=== PATIENT | female | born 1980 | race Caucasian/White ===

== ENCOUNTER 2018-05-10 10:36 | Emergency (ER) | payer OTHER ==
[2018-05-10 10:45] VITALS: RESP 18
--- NOTE | 2018-05-10 11:10 | ED ---
General Adult HPI - General Chief complaint: Extremity Injury, Upper Stated complaint: slip & fall/wrist pain Time Seen by Provider: 05/10/18 10:47 Source: patient, RN notes reviewed Mode of arrival: ambulatory Limitations: no limitations - History of Present Illness Initial comments: Patient's a 38-year-old female presented to the emergency room today with a chief complaint of a slip and fall that occurred just prior to arrival. She states she was walking to her car when she slipped on the ice falling down onto the left arm. Admits to worst pain is the left wrist and elbow area. She also admits to hitting the left knee which she states feels fine but she didn't twist the right knee and also her right ankle. Patient denies any head injury or loss consciousness. She denies any other complaints or symptoms. - Related Data Previous Rx's Medication Instructions Recorded Ibuprofen [Motrin] 600 mg PO Q6HR PRN #40 day 05/10/18 Allergies Allergy/AdvReac Type Severity Reaction Status Date / Time bee venom protein (honey bee) Allergy Anaphylaxis Verified 05/10/18 10:55 latex Allergy Rash/Hives Verified 05/10/18 10:55 Review of Systems ROS Statement: Those systems with pertinent positive or pertinent negative responses have been documented in the HPI. ROS Other: All systems not noted in ROS Statement are negative. Past Medical History Past Medical History: No Reported History History of Any Multi-Drug Resistant Organisms: None Reported Past Surgical History: Orthopedic Surgery Past Psychological History: PTSD Smoking Status: Never smoker Past Alcohol Use History: None Reported Past Drug Use History: None Reported General Exam - General Exam Comments Initial Comments: General: The patient is awake and alert, in no distress, and does not appear acutely ill. Neck: The neck is supple, there is no tenderness or JVD. Musculoskeletal: Patient has normal appearance of all extremities with no obvious deformity. She does have pain to the distal radius with mild pain in the distal ulna. There is minimal pain midshaft with pain to the posterior aspect of the left elbow. No tenderness to the left shoulder. No tenderness to cervical, thoracic or lumbar spine. Patient has normal appearance of the lower extremities. There is mild tenderness medially to the right knee. She shows full range of motion of this area along with right ankle and foot. She does have some mild tenderness over the lateral malleolus and over the proximal fourth and fifth metatarsals. Sensations are intact. Pedal and radial pulses are equal 2+. Neurological: A&O x 3. CN II-XII intact, There are no obvious motor or sensory deficits. Coordination appears grossly intact. Speech is normal. Skin: Skin is warm and dry and no rashes or lesions are noted. Psychiatric: Normal mood and affect. Limitations: no limitations Course Vital Signs 05/10/18 10:43 Temperature 98.4 F Pulse Rate 98 Respiratory 18 Rate Blood Pressure 129/84 O2 Sat by Pulse 98 Oximetry Medical Decision Making - Medical Decision Making Patient's x-rays reviewed and are negative for any acute fracture dislocation. Results were discussed with the patient. She be given Conrad wrap for her left wrist. She is advised follow-up with orthopedics in 7-10 days for repeat x- rays if symptoms persist. Patient advised return for any other concerns Disposition Clinical Impression: Right ankle sprain, Left wrist sprain, Fall Disposition: HOME SELF-CARE Condition: Good Instructions: Wrist Sprain (ED) Additional Instructions: Please follow-up in 7-10 days for repeat x-rays if symptoms persist. Please continue to ice elevate the affected area at least 4 times daily for 20 minutes at a time. Please return to emergency room for any other concerns. Prescriptions: Ibuprofen [Motrin] 600 mg PO Q6HR PRN #40 day PRN Reason: Pain Is patient prescribed a controlled substance at d/c from ED?: No Referrals: [facility],Clinic [Primary Care Provider] - 1-2 days Artemio Ly MD [STAFF PHYSICIAN] - 1-2 days Time of Disposition: 13:12
[2018-05-10] MEDS ORDERED: IBUPROFEN 600 MG TAB PO STA (12:45)
--- NOTE | 2018-05-10 13:00 | XR ---
EXAMINATION TYPE: XR ankle complete RT, XR foot complete RT DATE OF EXAM: 05/10/2018 CLINICAL HISTORY: Fall injury today with pain. TECHNIQUE: Frontal, lateral and oblique images of the right ankle and foot are obtained. COMPARISON: None. FINDINGS: There is no acute fracture/dislocation evident in the right ankle. The ankle mortise appe ars within normal limits. Small superior calcaneal spur and moderate size inferior calcaneal spur are present . Mild to moderate diffuse subcutaneous edema is seen. There is no acute fracture or dislocation evident in the right foot. The joint spaces in the right f oot are preserved. Overlying soft tissue is unremarkable. IMPRESSION: There is no acute fracture or dislocation in the right ankle or foot.
--- NOTE | 2018-05-10 13:02 | XR ---
EXAMINATION TYPE: XR knee complete RT DATE OF EXAM: 05/10/2018 CLINICAL HISTORY: Right knee pain after fall injury today. TECHNIQUE: Three views of the right knee are obtained. COMPARISON: None. FINDINGS: There is no acute fracture/dislocation evident in right knee. The tri-compartment joint s paces appear within normal limits. The overlying soft tissue appears unremarkable. IMPRESSION: There is no acute fracture or dislocation in the right knee.
--- NOTE | 2018-05-10 13:02 | XR ---
EXAMINATION TYPE: XR elbow complete LT, XR wrist complete LT, XR forearm LT DATE OF EXAM: 05/10/2018 CLINICAL HISTORY: Fall injury with pain. TECHNIQUE: Frontal, lateral and oblique images of the left elbow are obtained. 4 views left wrist ar e acquired. 2 views left forearm are acquired. COMPARISON: None FINDINGS: There is no acute fracture/dislocation evident in the left elbow. No abnormal fat pad sig ns are seen. The overlying soft tissue appears unremarkable. Images of left forearm show no acute fracture or dislocation. Overlying soft tissue is unremarkable. Images of left wrist show no acute fracture or dislocation. The carpal joint spaces are preserved. Ov erlying soft tissue is unremarkable. IMPRESSION: There is no acute fracture or dislocation in the left wrist, forearm, or elbow.
[2018-05-10 13:21] VITALS: BP 128/88; PULSE 68; TEMP 98.3
== END 2018-05-10 13:20 | disposition home or self-care (01) ==
LOC: EC 10:36
DX: S63.502A Unspecified sprain of left wrist, initial encounter (principal); S93.401A Sprain of unspecified ligament of right ankle, initial encounter; Z91.018 Allergy to other foods; Z91.040 Latex allergy status; W00.0XXA Fall on same level due to ice and snow, initial encounter; Y93.01 Activity, walking, marching and hiking; Y92.219 Unspecified school as the place of occurrence of the external cause
CPT/HCPCS: 99283

== ENCOUNTER → 2020-01-10 | Outpatient (CLI) | payer OTHER ==
--- NOTE | 2020-01-10 14:58 | US ---
EXAMINATION TYPE: US axilla LT DATE OF EXAM: 01/10/2020 COMPARISON: NONE CLINICAL HISTORY: R22.9 swelling/mass lump. Left axilla palpable lump x 3 months Left axilla: no abnormality seen at patient's area of concern IMPRESSION: No distinct abnormality appreciated at this time.
== END | disposition home or self-care (01) ==
LOC: RADUSWWP 13:23
DX: R22.9 Localized swelling, mass and lump, unspecified (principal)

== ENCOUNTER 2020-11-28 19:45 | Observation (INO) | payer OTHER ==
[2020-11-28] MEDS ORDERED: ONDANSETRON 4 MG/2 ML VIAL IVP STA (20:10)
[2020-11-28 20:13] LABS: Basophils # (A) 0.1 k/uL (0-0.2); Basophils % (A) 1 %; Eosinophils # (A) 0.2 k/uL (0-0.7); Eosinophils % (A) 2 %; HCT 41.6 % (34.0-46.0); HGB 13.9 gm/dL (11.4-16.0); Lymphocytes # (A) 3.4 k/uL (1.0-4.8); Lymphocytes % (A) 34 %; MCH 29.9 pg (25.0-35.0); MCHC 33.5 g/dL (31.0-37.0); MCV 89.3 fL (80.0-100.0); Mean Platelet Volume 7.8; Monocytes # (A) 0.5 k/uL (0-1.0); Monocytes % (A) 5 %; Neutrophils # (A) 5.6 k/uL (1.3-7.7); Neutrophils % (A) 56 %; Platelet Count 368 k/uL (150-450); RBC 4.66 m/uL (3.80-5.40); RDW 12.4 % (11.5-15.5)
--- NOTE | 2020-11-28 20:14 | ED ---
General Adult HPI - General Chief complaint: Arrhythmia/Palpitations Stated complaint: Dizziness Time Seen by Provider: 11/28/20 19:56 Source: patient, RN notes reviewed, old records reviewed Mode of arrival: wheelchair - History of Present Illness Initial comments: Patient is a 40-year-old female with past medical history remarkable for PTSD, anxiety, as well as recurrent episodes of lightheadedness and syncope over the last few months presents emergency Department after being instructed by the sleep lab for evaluation. She was receiving sleep study for obstructive sleep apnea 2 days ago, and she received a phone call today stating that she should come to the emergency department for evaluation due to recurrent runs of ventricular tachycardia seen during the sleep study. She states she has been dealing with for the last 2 months episodes of lightheadedness episodes. She denies any abdominal pain during these episodes. She does state she is slightly nauseous at this time. She denies any emesis. She denies any weakness or numbness. She denies hitting her head earlier today during the syncopal episode, and is uncertain if she for loss consciousness but states she did fall to the ground. Denies any injuries afterwards. She states this possible syncopal episode is the first time this has happened. She states she has felt lightheaded before but has never collapsed. She is able to remember prior to the collapse as well as immediately after her collapse. She denies any nausea or vomiting. Denies any headache. She has no other acute complaints at this time. She denies any hemoptysis but does endorse a family history of blood clots. Denies any leg swelling or dyspnea. - Related Data Home Medications Medication Instructions Recorded Confirmed Escitalopram [Lexapro] 10 mg PO DAILY 11/28/20 11/28/20 Levothyroxine Sodium [Synthroid] 50 mcg PO DAILY 11/28/20 11/28/20 Multivitamins, Thera [Multivitamin 1 tab PO DAILY 11/28/20 11/28/20 (formulary)] buPROPion SR [Wellbutrin SR] 150 mg PO BID 11/28/20 11/28/20 Allergies Allergy/AdvReac Type Severity Reaction Status Date / Time bee venom protein (honey bee) Allergy Anaphylaxis Verified 11/28/20 20:41 latex Allergy Rash/Hives Verified 11/28/20 20:41 Review of Systems ROS Statement: Those systems with pertinent positive or pertinent negative responses have been documented in the HPI. Review of Systems: CONST: Denies fever EYES: Denies blurry vision ENT: Denies nasal congestion C/V: Denies Chest pain RESP: Denies shortness of breath GI: Denies abdominal pain : Denies dysuria SKIN: Denies rash. MSK: Denies joint pain. NEURO: Denies headache ROS Other: All systems not noted in ROS Statement are negative. Past Medical History Past Medical History: No Reported History History of Any Multi-Drug Resistant Organisms: None Reported Past Surgical History: Orthopedic Surgery Past Psychological History: PTSD Smoking Status: Never smoker Past Alcohol Use History: None Reported Past Drug Use History: None Reported General Exam - General Exam Comments Initial Comments: General: Appears in no acute distress. HEAD: Normal with no signs of head trauma. No step-offs or deformities of the skull. EYES: PERRLA, EOMI, conjunctiva normal, no discharge. Pupils are 3 mm and equal bilaterally. ENT: Hearing grossly intact, normal oropharynx. RESPIRATORY: Clear breath sounds bilaterally. No wheezes, rales, or rhonchi. C/V: Regular rate and rhythm. S1 and S2 auscultated, no edema, peripheral pulses 2+ and intact throughout ABD: Abd is soft, nontender, nondistended EXT: Normal range of motion, no obvious deformity. Pelvis is stable. Patient has no midline cervical, thoracic, lumbar spine tenderness to palpation. SKIN: No rashes or lesions observed on exposed skin. NEURO: Alert and oriented 4. Cranial nerves II-12 are intact. No focal sensory strength deficits. Cerebellar function is intact as evident by normal finger nose testing. NIH stroke scale is 0. Patient is able to ambulate without difficulty. GCS is 15. Course Vital Signs 11/28/20 11/28/20 19:46 21:37 Temperature 98.2 F Pulse Rate 77 81 Respiratory 19 18 Rate Blood Pressure 134/87 122/65 O2 Sat by Pulse 98 100 Oximetry Medical Decision Making - Medical Decision Making Based on the patient's presentation and physical exam, does appear that she had a near-syncopal versus syncopal episode at home as well as a confirmed run of V. tach at her sleep study performed earlier this week. She currently is asymptomatic at this time. Due to these findings, we will obtain a cardiac workup including troponin, EKG, chest x-ray. Due to the sudden possible syncopal episode which had not previously occurred, I cannot rule out the poss ibility of pulmonary embolism, especially with a family medical history of blood clots. Patient's will score is low and therefore we will obtain a screening test with a d-dimer. She'll be connected to continuous cardiac monitoring here in the department. Patient was in agreement the plan. Patient's EKG showed no signs of acute ischemia. It was normal sinus rhythm. Laboratory studies were remarkable for a negative troponin. D-dimer is also within normal limits. She is not . Remainder of the labs are unremarkable. Patient's chest x-ray reveals no acute cardiopulmonary process. On reevaluation, patient remains asymptomatic at this time. I did explain to her that despite her negative workup, but the confirmed runs of ventricular tachycardia at the sleep study it would be may to admit her to the hospital for telemetry monitoring. She was in agreement this plan. I spoke with the patient's admitting physician, Dr. Mata, who is in agreement the plan. Cardiology was consult for evaluation of the patient tomorrow. Patient was therefore admitted in stable condition to observation telemetry. - Lab Data Result diagrams: 11/28/20 20:01 11/28/20 20:00 Lab Results 11/28/20 11/28/20 11/28/20 Range/Units 20:00 20:00 20:01 WBC 10.0 (3.8-10.6) k/uL RBC 4.66 (3.80-5.40) m/uL Hgb 13.9 (11.4-16.0) gm/dL Hct 41.6 (34.0-46.0) % MCV 89.3 (80.0-100.0) fL MCH 29.9 (25.0-35.0) pg MCHC 33.5 (31.0-37.0) g/dL RDW 12.4 (11.5-15.5) % Plt Count 368 (150-450) k/uL MPV 7.8 Neutrophils % 56 % Lymphocytes % 34 % Monocytes % 5 % Eosinophils % 2 % Basophils % 1 % Neutrophils # 5.6 (1.3-7.7) k/uL Lymphocytes # 3.4 (1.0-4.8) k/uL Monocytes # 0.5 (0-1.0) k/uL Eosinophils # 0.2 (0-0.7) k/uL Basophils # 0.1 (0-0.2) k/uL PT (9.0-12.0) sec INR (<1.2) APTT (22.0-30.0) sec D-Dimer (<0.60) mg/L FEU Sodium 137 (137-145) mmol/L Potassium 3.7 (3.5-5.1) mmol/L Chloride 103 (98-107) mmol/L Carbon Dioxide 25 (22-30) mmol/L Anion Gap 9 mmol/L BUN 12 (7-17) mg/dL Creatinine 0.66 (0.52-1.04) mg/dL Est GFR (CKD-EPI)AfAm >90 (>60 ml/min/1.73 sqM) Est GFR (CKD-EPI)NonAf >90 (>60 ml/min/1.73 sqM) Glucose 97 (74-99) mg/dL Calcium 9.6 (8.4-10.2) mg/dL Magnesium 2.0 (1.6-2.3) mg/dL Total Bilirubin 0.3 (0.2-1.3) mg/dL AST 24 (14-36) U/L ALT 15 (4-34) U/L Alkaline Phosphatase 92 (38-126) U/L Troponin I <0.012 (0.000-0.034) ng/mL Total Protein 7.2 (6.3-8.2) g/dL Albumin 4.3 (3.5-5.0) g/dL Urine HCG, Qual (Not Detectd) 11/28/20 11/28/20 Range/Units 20:01 20:30 WBC (3.8-10.6) k/uL RBC (3.80-5.40) m/uL Hgb (11.4-16.0) gm/dL Hct (34.0-46.0) % MCV (80.0-100.0) fL MCH (25.0-35.0) pg MCHC (31.0-37.0) g/dL RDW (11.5-15.5) % Plt Count (150-450) k/uL MPV Neutrophils % % Lymphocytes % % Monocytes % % Eosinophils % % Basophils % % Neutrophils # (1.3-7.7) k/uL Lymphocytes # (1.0-4.8) k/uL Monocytes # (0-1.0) k/uL Eosinophils # (0-0.7) k/uL Basophils # (0-0.2) k/uL PT 10.1 (9.0-12.0) sec INR 0.9 (<1.2) APTT 22.8 (22.0-30.0) sec D-Dimer 0.29 (<0.60) mg/L FEU Sodium (137-145) mmol/L Potassium (3.5-5.1) mmol/L Chloride (98-107) mmol/L Carbon Dioxide (22-30) mmol/L Anion Gap mmol/L BUN (7-17) mg/dL Creatinine (0.52-1.04) mg/dL Est GFR (CKD-EPI)AfAm (>60 ml/min/1.73 sqM) Est GFR (CKD-EPI)NonAf (>60 ml/min/1.73 sqM) Glucose (74-99) mg/dL Calcium (8.4-10.2) mg/dL Magnesium (1.6-2.3) mg/dL Total Bilirubin (0.2-1.3) mg/dL AST (14-36) U/L ALT (4-34) U/L Alkaline Phosphatase (38-126) U/L Troponin I (0.000-0.034) ng/mL Total Protein (6.3-8.2) g/dL Albumin (3.5-5.0) g/dL Urine HCG, Qual Not Detected (Not Detectd) - EKG Data -: EKG Interpreted by Me EKG Comments: 12-lead Electrocardiogram Interpretation Note EKG was reviewed and interpreted by myself. 12-lead ECG performed at 2000 is interpreted by me as revealing normal sinus rhythm at a rate of 71 beats per minute. [place] is normal. SC interval is 154 ms, QRS duration is 82 ms, QTc is 415 ms.. There were no ST or T wave abnormalities to suggest myocardial ischemia or injury. R wave progression across the precordium was satisfactory. By my interpretation this EKG is non-diagnostic for acute ischemia. Disposition Clinical Impression: Near syncope, Syncope, Arrhythmia Disposition: ADMITTED IP TO THIS HOSP Condition: Stable
[2020-11-28 20:21] LABS: ALT 15 U/L (4-34); AST 24 U/L (14-36); African American GFR (CKD) >90 (>60 ml/min/1.73 sqM); Albumin 4.3 g/dL (3.5-5.0); Alkaline Phosphatase 92 U/L (38-126); Anion Gap 9 mmol/L; Blood Urea Nitrogen 12 mg/dL (7-17); Calcium 9.6 mg/dL (8.4-10.2); Carbon Dioxide 25 mmol/L (22-30); Chloride 103 mmol/L (98-107); Glucose 97 mg/dL (74-99); Non-African American GFR(CKD) >90 (>60 ml/min/1.73 sqM); Potassium 3.7 mmol/L (3.5-5.1); Sodium 137 mmol/L (137-145); Total Bilirubin 0.3 mg/dL (0.2-1.3); Total Protein 7.2 g/dL (6.3-8.2)
[2020-11-28 20:27] LABS: INR 0.9 (<1.2); Partial Thromboplastin Time 22.8 sec (22.0-30.0); Prothrombin Time 10.1 sec (9.0-12.0)
--- NOTE | 2020-11-28 21:24 | XR ---
EXAMINATION TYPE: XR chest 2V DATE OF EXAM: 11/28/2020 COMPARISON: NONE HISTORY: Chest pain TECHNIQUE: 2 views FINDINGS: Heart and mediastinum are normal. Lungs are clear. Diaphragm is normal. Bony thorax is inta ct. IMPRESSION: Normal chest.
[2020-11-29] MEDS: LEVOTHYROXINE 50 MCG TAB PO SCH (05:50)
[2020-11-29] MEDS: buPROPion SR 150 MG TABLET.ER PO SCH ×2 (08:09→20:04)
--- NOTE | 2020-11-29 12:53 | P.DS ---
Providers Date of admission: 11/28/20 21:18 Attending physician: Azeem Mata MD Consults: 11/28/20 21:16 Consult Physician Routine Consulting Provider: [facility] Consult Reason/Comments: possible arrhythmia/vtach seen at outpatient sleep study, near syncope Do you want consulting provider notified?: Yes Primary care physician: [facility] Hospital Course: If cleared by cardiology patient will be discharged today and please refer to my HPI for further details Patient Condition at Discharge: Stable Plan - Discharge Summary Discharge Rx Participant: No New Discharge Prescriptions: Continue Levothyroxine Sodium [Synthroid] 50 mcg PO DAILY buPROPion SR [Wellbutrin SR] 150 mg PO BID Multivitamins, Thera [Multivitamin (formulary)] 1 tab PO DAILY Escitalopram [Lexapro] 10 mg PO DAILY Discharge Medication List Escitalopram [Lexapro] 10 mg PO DAILY 11/28/20 [History] Levothyroxine Sodium [Synthroid] 50 mcg PO DAILY 11/28/20 [History] Multivitamins, Thera [Multivitamin (formulary)] 1 tab PO DAILY 11/28/20 [History] buPROPion SR [Wellbutrin SR] 150 mg PO BID 11/28/20 [History] Follow up Appointment(s)/Referral(s): Janiya Woods MD [STAFF PHYSICIAN] - 1 Week [facility],Clinic [Primary Care Provider] - 3 Days Discharge Disposition: HOME SELF-CARE
--- NOTE | 2020-11-29 12:53 | P.HPIM ---
History of Present Illness Patient was and that 40-year-old the female came in with the near syncopal episode patient had a sleep study and the physician who did review her sleep study told her to go to the hospital because of nonsustained VT. Patient EKG here is sensitive no significant abnormality on the telemetry. Patient alert right-sided within normal limits patient denied any chest pain at this time echocardiac and is being obtained, if that's normal patient will be discharged today and will probably will need a Holter monitor. REVIEW OF SYSTEMS: CONSTITUTIONAL: No fever, no malaise, no fatigue. HEENT: No recent visual problems or hearing problems. Denied any sore throat. CARDIOVASCULAR: No chest pain, orthopnea, PND, no palpitations, no syncope. PULMONARY: No shortness of breath, no cough, no hemoptysis. GASTROINTESTINAL: No diarrhea, no nausea, no vomiting, no abdominal pain. NEUROLOGICAL: No headaches, no weakness, no numbness. HEMATOLOGICAL: Denies any bleeding or petechiae. GENITOURINARY: Denies any burning micturition, frequency, or urgency. MUSCULOSKELETAL/RHEUMATOLOGICAL: Denies any joint pain, swelling, or any muscle pain. ENDOCRINE: Denies any polyuria or polydipsia. The rest of the 14-point review of systems is negative. PHYSICAL EXAMINATION: GENERAL: The patient is alert and oriented x3, not in any acute distress. Well developed, well nourished. HEENT: Pupils are round and equally reacting to light. EOMI. No scleral icterus. No conjunctival pallor. Normocephalic, atraumatic. No pharyngeal erythema. No thyromegaly. CARDIOVASCULAR: S1 and S2 present. No murmurs, rubs, or gallops. PULMONARY: Chest is clear to auscultation, no wheezing or crackles. ABDOMEN: Soft, nontender, nondistended, normoactive bowel sounds. No palpable organomegaly. MUSCULOSKELETAL: No joint swelling or deformity. EXTREMITIES: No cyanosis, clubbing, or pedal edema. NEUROLOGICAL: Gross neurological examination did not reveal any focal deficits. SKIN: No rashes. Assessment and plan -Near-syncope, recurrent episodes of nonsustained VT: Cardiology evaluated the patient further management as mentioned above echocardiogram and possible outpatient Holter monitor. -Hypothyroidism continue Synthroid -Depression/PTSD If cleared by cardiology patient will be discharged later today after the echo results and possible Holter monitor . Past Medical History Past Medical History: No Reported History Additional Past Medical History / Comment(s): hypothyroid History of Any Multi-Drug Resistant Organisms: None Reported Past Surgical History: Orthopedic Surgery Past Psychological History: PTSD Smoking Status: Never smoker Past Alcohol Use History: None Reported Past Drug Use History: None Reported Medications and Allergies Home Medications Medication Instructions Recorded Confirmed Type Escitalopram [Lexapro] 10 mg PO DAILY 11/28/20 11/28/20 History Levothyroxine Sodium [Synthroid] 50 mcg PO DAILY 11/28/20 11/28/20 History Multivitamins, Thera [Multivitamin 1 tab PO DAILY 11/28/20 11/28/20 History (formulary)] buPROPion SR [Wellbutrin SR] 150 mg PO BID 11/28/20 11/28/20 History Allergies Allergy/AdvReac Type Severity Reaction Status Date / Time bee venom protein (honey bee) Allergy Anaphylaxis Verified 11/28/20 20:41 latex Allergy Rash/Hives Verified 11/28/20 20:41 Physical Exam Vitals: Vital Signs Temp Pulse Pulse Resp BP BP Pulse Ox 11/29/20 08:00 78 18 11/29/20 07:00 98.5 F 78 18 119/68 98 11/29/20 01:42 97.8 F 76 18 132/71 98 11/29/20 01:32 18 11/28/20 22:25 98.7 F 77 18 124/72 97 11/28/20 21:37 81 18 122/65 100 11/28/20 19:46 98.2 F 77 19 134/87 98 Intake and Output 11/28/20 11/29/20 11/29/20 22:59 06:59 14:59 Other: Voiding Method Toilet Toilet # Voids 1 2 1 Weight 96.615 kg Results CBC & Chem 7: 11/28/20 20:01 11/28/20 20:00 Thrombosis Risk Factor Assmnt - Choose All That Apply Any of the Below Risk Factors Present?: Yes Each Factor Represents 1 point: Obesity (BMI >25) Other Risk Factors: No Other congenital or acquired thrombophilia - If yes, enter type in comment: No Thrombosis Risk Factor Assessment Total Risk Factor Score: 1 Thrombosis Risk Factor Assessment Level: Low Risk
--- NOTE | 2020-11-29 14:52 | ECHOF ---
Referral Reason:near syncope, runs of vtach at sleep study MEASUREMENTS -------- HEIGHT: 165.1 cm WEIGHT: 96.6 kg BP: RVIDd: 2.5 cm (< 3.3) IVSd: 0.8 cm (0.6 - 1.1) LVIDd: 4.7 cm (3.9 - 5.3) LVPWd: 1.0 cm (0.6 - 1.1) IVSs: 1.2 cm LVIDs: 2.7 cm LVPWs: 1.5 cm LA Diam: 3.2 cm (2.7 - 3.8) LAESV Index (A-L): 20.25 ml/m Ao Diam: 2.4 cm (2.0 - 3.7) AV Cusp: 1.8 cm (1.5 - 2.6) LA Diam: 3.7 cm (2.7 - 3.8) MV EXCURSION: 17.614 mm (> 18.000) MV EF SLOPE: 102 mm/s (70 - 150) EPSS: 0.5 cm MV E Mian: 0.86 m/s MV DecT: 168 ms MV A Mian: 0.81 m/s MV E/A Ratio: 1.06 RAP: 5.00 mmHg RVSP: 26.56 mmHg FINDINGS -------- Sinus rhythm. This was a technically good study. LV size, wall thickness and systolic function are normal, with an EF greater than 55%. The left hector tricular size is normal. The right ventricle is normal in size. Normal LA size by volume 22+/-6 ml/m2. The right atrial size is normal. The aortic valve is trileaflet, and appears structurally normal. No aortic stenosis or regurgitation. Mild mitral regurgitation is present. Mild tricuspid regurgitation present. Right ventricular systolic pressure is normal at < 35 mmHg. There is no pulmonic regurgitation present. There is no pericardial effusion. CONCLUSIONS -------- 1. LV size, wall thickness and systolic function are normal, with an EF greater than 55%. 2. The left ventricular size is normal. 3. The right ventricle is normal in size. 4. Normal LA size by volume 22+/-6 ml/m2. 5. The right atrial size is normal. 6. The aortic valve is trileaflet, and appears structurally normal. No aortic stenosis or regurgitati on. 7. Mild mitral regurgitation is present. 8. Mild tricuspid regurgitation present. 9. There is no pericardial effusion. RECORD PRESSMAN: Anel Christina RDCS
--- NOTE | 2020-11-29 15:20 | P.CRDCN ---
History of Present Illness Consult date: 11/29/20 History of present illness: This is a 40-year-old female with history of panic attacks being treated with Wellbutrin and Lexapro, was recently evaluated by sleep study. Apparently she was found to have episodes of nonsustained V. tach. She was also complaining of being dizzy on occasion. She was advised to go to the hospital for further evaluation. Since admission here to the hospital, no further cardiac arrhythmias were documented. She seemed to be otherwise doing well. No complaints of chest pain or shortness of breath. Lungs are clear. Heart is regular. Patient is going to have an echocardiogram. If echo shows normal LV function, patient could be discharged to be monitored as an outpatient with event monitor. Attempts were made to get the tracings from the sleep study regarding episodes of nonsustained V. tach Review of Systems As per the chart Past Medical History Past Medical History: No Reported History Additional Past Medical History / Comment(s): hypothyroid History of Any Multi-Drug Resistant Organisms: None Reported Past Surgical History: Orthopedic Surgery Past Psychological History: PTSD Smoking Status: Never smoker Past Alcohol Use History: None Reported Past Drug Use History: None Reported Medications and Allergies Home Medications Medication Instructions Recorded Confirmed Type Escitalopram [Lexapro] 10 mg PO DAILY 11/28/20 11/28/20 History Levothyroxine Sodium [Synthroid] 50 mcg PO DAILY 11/28/20 11/28/20 History Multivitamins, Thera [Multivitamin 1 tab PO DAILY 11/28/20 11/28/20 History (formulary)] buPROPion SR [Wellbutrin SR] 150 mg PO BID 11/28/20 11/28/20 History Allergies Allergy/AdvReac Type Severity Reaction Status Date / Time bee venom protein (honey bee) Allergy Anaphylaxis Verified 11/28/20 20:41 latex Allergy Rash/Hives Verified 11/28/20 20:41 Physical Exam Vitals: Vital Signs Temp Pulse Pulse Resp BP BP Pulse Ox 11/29/20 15:00 98.4 F 95 16 138/84 97 11/29/20 08:00 78 18 11/29/20 07:00 98.5 F 78 18 119/68 98 11/29/20 01:42 97.8 F 76 18 132/71 98 11/29/20 01:32 18 11/28/20 22:25 98.7 F 77 18 124/72 97 11/28/20 21:37 81 18 122/65 100 11/28/20 19:46 98.2 F 77 19 134/87 98 Intake and Output 11/29/20 11/29/20 11/29/20 06:59 14:59 22:59 Other: Voiding Method Toilet Toilet # Voids 2 1 GENERAL EXAM: Patient is alert and oriented and doesn't appear to be in any acute distress HEENT: Normocephalic. Normal reaction of pupils, equal size, normal range of extraocular motion. No erythema or exudates in the throat. NECK: No masses, no nuchal rigidity. CHEST: No chest wall deformity. LUNGS: Equal air entry with no crackles or wheeze. HEART: S1 and S2 normal with no audible mumurs or gallops. Regular rhythm, femorals equal on both sides.. ABDOMEN: No hepatosplenomegaly, normal bowel sounds, no guarding or rigidity. SKIN: No rashes CENTRAL NERVOUS SYSTEM: No focal deficits. EXTREMITIES: No cyanosis, clubbing or edema. Results 11/28/20 20:01 11/28/20 20:00 Cardiac Enzymes 11/28/20 11/28/20 11/28/20 Range/Units 20:00 20:00 23:56 AST 24 (14-36) U/L Troponin I <0.012 <0.012 (0.000-0.034) ng/mL 11/29/20 Range/Units 04:55 AST (14-36) U/L Troponin I <0.012 (0.000-0.034) ng/mL Coagulation 11/28/20 Range/Units 20:01 PT 10.1 (9.0-12.0) sec APTT 22.8 (22.0-30.0) sec CBC 11/28/20 Range/Units 20:01 WBC 10.0 (3.8-10.6) k/uL RBC 4.66 (3.80-5.40) m/uL Hgb 13.9 (11.4-16.0) gm/dL Hct 41.6 (34.0-46.0) % Plt Count 368 (150-450) k/uL Comprehensive Metabolic Panel 11/28/20 Range/Units 20:00 Sodium 137 (137-145) mmol/L Potassium 3.7 (3.5-5.1) mmol/L Chloride 103 (98-107) mmol/L Carbon Dioxide 25 (22-30) mmol/L BUN 12 (7-17) mg/dL Creatinine 0.66 (0.52-1.04) mg/dL Glucose 97 (74-99) mg/dL Calcium 9.6 (8.4-10.2) mg/dL AST 24 (14-36) U/L ALT 15 (4-34) U/L Alkaline Phosphatase 92 (38-126) U/L Total Protein 7.2 (6.3-8.2) g/dL Albumin 4.3 (3.5-5.0) g/dL Current Medications Generic Name Dose Route Start Last Admin Trade Name William PRN Reason Stop Dose Admin Bupropion HCl 150 mg 11/29/20 09:00 11/29/20 08:09 Bupropion Sr 150 Mg Tablet.Er PO 150 mg BID DANIELITO Administration Levothyroxine Sodium 50 mcg 11/29/20 06:30 11/29/20 05:50 Levothyroxine 50 Mcg Tab PO 50 mcg 0630 DANIELITO Administration Intake and Output 11/29/20 11/29/20 11/29/20 06:59 14:59 22:59 Other: Voiding Method Toilet Toilet # Voids 2 1 11/28/20 20:01 11/28/20 20:00 EKG Interpretations (text) Essentially normal EKG Assessment and Plan (1) Nonsustained ventricular tachycardia Current Visit: Yes Status: Acute Code(s): I47.2 - VENTRICULAR TACHYCARDIA SNOMED Code(s): 750447725 (2) Near syncope Current Visit: Yes Status: Acute Code(s): R55 - SYNCOPE AND COLLAPSE SNOMED Code(s): 406015295 (3) Panic attacks Current Visit: Yes Status: Acute Code(s): F41.0 - PANIC DISORDER [EPISODIC PAROXYSMAL ANXIETY] SNOMED Code(s): 808945093 Plan: No arrhythmias are documented in the hospital. Need to obtain documents from the sleep study regarding nonsustained V. tach. Echocardiogram to assess LV function. If the echo is normal, patient will be discharged home with event monitor.
[2020-11-30] MEDS: LEVOTHYROXINE 50 MCG TAB PO SCH (05:26)
[2020-11-30 07:29] VITALS: BP 131/78; PULSE 78; RESP 16; TEMP 97.8
[2020-11-30] MEDS: buPROPion SR 150 MG TABLET.ER PO SCH (08:22)
[2020-11-30] MEDS ORDERED: ESCITALOPRAM 10 MG TAB PO SCH (10:45)
--- NOTE | 2020-11-30 11:43 | P.DS ---
Providers Date of admission: 11/28/20 21:18 Expected date of discharge: 11/30/20 Attending physician: Azeem Mata MD Consults: 11/28/20 21:16 Consult Physician Routine Consulting Provider: [facility] Consult Reason/Comments: possible arrhythmia/vtach seen at outpatient sleep study, near syncope Do you want consulting provider notified?: Yes Primary care physician: [facility] Course: Patient was and that 40-year-old the female came in with the near syncopal episode patient had a sleep study and the physician who did review her sleep study told her to go to the hospital because of nonsustained VT. Patient EKG here is sensitive no significant abnormality on the telemetry. Patient alert right-sided within normal limits patient denied any chest pain at this time echocardiac and is being obtained, if that's normal patient will be discharged today and will probably will need a Holter monitor. 11/30/2020 Patient was kept overnight for monitoring and 2-D echocardiogram which is showing normal LV function LVEF is 55%. Patient is anxious and upset, likely due to some withdrawal from not getting her SSRI Lexapro, this has been reordered and she is receiving dose. She is in sinus mechanism on the monitor, vital signs are stable. Clinically she has no complaint of chest pain, palpitation or shortness of breath. Plan is for her to be set up for Holter monitor in the outpatient setting and follow up with cardiology. REVIEW OF SYSTEMS: HEENT: No recent visual problems or hearing problems. Denied any sore throat. CARDIOVASCULAR: No chest pain, orthopnea, PND, no palpitations, no syncope. PULMONARY: No shortness of breath, no cough, no hemoptysis. GASTROINTESTINAL: No diarrhea, no nausea, no vomiting, no abdominal pain. NEUROLOGICAL: No headaches, no weakness, no numbness. PSYCHIATRIC: Anxiety GENITOURINARY: Denies any burning micturition, frequency, or urgency. The rest of the 14-point review of systems is negative. PHYSICAL EXAMINATION: GENERAL: The patient is alert and oriented x3, not in any acute distress. Well developed, well nourished. HEENT: Pupils are round and equally reacting to light. EOMI. No scleral icterus. No conjunctival pallor. Normocephalic, atraumatic. No pharyngeal erythema. No thyromegaly. CARDIOVASCULAR: S1 and S2 present. No murmurs, rubs, or gallops. PULMONARY: Chest is clear to auscultation, no wheezing or crackles. ABDOMEN: Soft, nontender, nondistended, normoactive bowel sounds. No palpable organomegaly. MUSCULOSKELETAL: No joint swelling or deformity. EXTREMITIES: No cyanosis, clubbing, or pedal edema. NEUROLOGICAL: Gross neurological examination did not reveal any focal deficits. SKIN: No rashes. Assessment and plan -Near-syncope, recurrent episodes of nonsustained VT: 2-D echocardiogram showing normal LV function LVEF 55%, in sinus mechanism on the monitor with no arrhythmia. Patient will be discharged home and be arranged for Holter monitor, will need follow-up with cardiology and primary care provider in the outpatient setting. -Anxiety: Most probably secondary to withdrawal from SSRI, she has been resumed on this medication, expect this will improve as she resumes her regular dose. -Hypothyroidism continue Synthroid -Depression/PTSD 2-D echocardiogram reviewed, normal LV function, patient to be red for Holter monitor as mentioned above and she can be discharged home once this is in place and follow-up with cardiology in the outpatient setting along with her primary care provider. Patient Condition at Discharge: Stable Plan - Discharge Summary Discharge Rx Participant: No New Discharge Prescriptions: Continue Levothyroxine Sodium [Synthroid] 50 mcg PO DAILY buPROPion SR [Wellbutrin SR] 150 mg PO BID Multivitamins, Thera [Multivitamin (formulary)] 1 tab PO DAILY Escitalopram [Lexapro] 10 mg PO DAILY Discharge Medication List Escitalopram [Lexapro] 10 mg PO DAILY 11/28/20 [History] Levothyroxine Sodium [Synthroid] 50 mcg PO DAILY 11/28/20 [History] Multivitamins, Thera [Multivitamin (formulary)] 1 tab PO DAILY 11/28/20 [History] buPROPion SR [Wellbutrin SR] 150 mg PO BID 11/28/20 [History] Follow up Appointment(s)/Referral(s): Janiya Woods MD [STAFF PHYSICIAN] - 1 Week [facility] [Primary Care Provider] - 3 Days Discharge Disposition: HOME SELF-CARE
--- NOTE | 2020-11-30 15:58 | P.PN ---
Subjective Progress Note Date: 11/30/20 This is a 40-year-old female with history of panic attacks who was admitted to hospital because of apparent nonsustained V. tach noted during sleep study. Patient is also complaining of some episodes of dizziness. No arrhythmias are noted in the hospital. Echo Cardigan showed normal LV function. Patient is having intermittent anxiety and panic attacks. From Cardec standpoint patient seemed to be stable. She could be discharged home to be monitored as an outpatient with event monitor. Continue current medical therapy Objective - Vital Signs Vital signs: Vital Signs Temp 97.8 F 11/30/20 07:00 Pulse 78 11/30/20 07:00 Resp 16 11/30/20 07:00 BP 131/78 11/30/20 07:00 Pulse Ox 98 11/30/20 07:00 Intake & Output 11/29/20 11/30/20 11/30/20 18:59 06:59 18:59 Intake Total 240 Balance 240 Intake: Oral 240 Other: Voiding Method Toilet Toilet # Voids 1 2 - Exam GENERAL EXAM: Patient is alert but seems to be going to a panic attack HEENT: Normocephalic. Normal reaction of pupils, equal size, normal range of extraocular motion. No erythema or exudates in the throat. NECK: No masses, no nuchal rigidity. CHEST: No chest wall deformity. LUNGS: Equal air entry with no crackles or wheeze. HEART: S1 and S2 normal with no audible mumurs or gallops. Regular rhythm, femorals equal on both sides.. ABDOMEN: No hepatosplenomegaly, normal bowel sounds, no guarding or rigidity. SKIN: No rashes CENTRAL NERVOUS SYSTEM: No focal deficits. EXTREMITIES: No cyanosis, clubbing or edema. - Labs CBC & Chem 7: 11/28/20 20:01 11/28/20 20:00 Assessment and Plan (1) Nonsustained ventricular tachycardia Status: Acute Code(s): I47.2 - VENTRICULAR TACHYCARDIA SNOMED Code(s): 197817655 (2) Near syncope Status: Acute Code(s): R55 - SYNCOPE AND COLLAPSE SNOMED Code(s): 018938462 (3) Panic attacks Status: Acute Code(s): F41.0 - PANIC DISORDER [EPISODIC PAROXYSMAL ANXIETY] SNOMED Code(s): 073602121 Plan: Echocardiogram showed normal LV function. No arrhythmias noted. Patient is being discharged to be evaluated by event monitor as an outpatient
== END 2020-11-30 12:53 | disposition home or self-care (01) ==
LOC: EC 19:45 → 6NMEDSUR 21:18
PROVIDERS: ADMIT Internal Medicine; ATTEND Internal Medicine
DX: R55 Syncope and collapse (principal); I47.2 Ventricular tachycardia; F41.8 Other specified anxiety disorders; F41.0 Panic disorder [episodic paroxysmal anxiety]; F43.10 Post-traumatic stress disorder, unspecified; E03.9 Hypothyroidism, unspecified; Z91.040 Latex allergy status; Z91.030 Bee allergy status; Z79.890 Hormone replacement therapy; Z79.899 Other long term (current) drug therapy; Z98.890 Other specified postprocedural states; Z83.2 Family history of diseases of the blood and blood-forming organs and certain disorders involving the immune mechanism
CPT/HCPCS: 93005 ×2; 96374; 99284; 36415; 93306; 85379; 80053; 83735; 84484 ×2; 85025; 85610; 85730; 81025; 71046; G0378 ×3; S0106 ×2; J2405

== ENCOUNTER → 2021-02-26 | Outpatient (CLI) | payer OTHER ==
--- NOTE | 2021-02-27 15:07 | MM ---
Reason for exam: screening (asymptomatic). Baseline mammogram. History: Took hormonal contraceptives for 11 years beginning at age 18. Physical Findings: Nurse did not find any significant physical abnormalities on exam. MG 3D Screening Mammo W/Cad Bilateral CC and MLO view(s) were taken. The breast tissue is heterogeneously dense. This may lower the sensitivity of mammography. No significant findings. ASSESSMENT: Benign, BI-RAD 2 RECOMMENDATION: Routine screening mammogram of both breasts in 1 year.
== END | disposition home or self-care (01) ==
LOC: RADMAMWWP 10:48
DX: Z12.31 Encounter for screening mammogram for malignant neoplasm of breast (principal)
CPT/HCPCS: 77063; 77067

== ENCOUNTER → 2021-10-29 | Outpatient (CLI) | payer OTHER ==
--- NOTE | 2021-10-29 15:35 | US ---
EXAMINATION TYPE: US thyroid st tissue head/neck DATE OF EXAM: 10/29/2021 COMPARISON: NONE CLINICAL HISTORY: E04.2 NONTOXIC MULTINODULAR GOITER. GLAND SIZE: Right Lobe: 4.5 x 1.2 x 1.6 cm Overall Parenchyma: homogenous Left Lobe: 4.5 x 1.1 x 1.2 cm Overall Parenchyma: homogeneous Isthmus Thickness: 0.3 cm NODULES RIGHT: # of nodules measured on right: 1. 1.0 x 0.6 x 0.7 cm, upper, solid or almost completely solid, hypoechoic nodule, which is wider th an tall, with smooth margins, without echogenic foci. no prior 2. 1.3 x 0.6 x 0.9cm, mid , solid or almost completely solid, hypoechoic nodule, which is wider than tall, with lobulated or irregular margins, with echogenic foci. no prior LEFT: # of nodules measured on left: 0 ISTHMUS: # of nodules measured in the isthmus: 0 Bilateral neck scanned, no evidence of lymphadenopathy. IMPRESSION: Nonspecific thyroid nodularity.
== END | disposition home or self-care (01) ==
LOC: RADUSWWP 14:49
PROVIDERS: ATTEND Internal Medicine Endocrinology, Diabetes & Metabolism
DX: E04.2 Nontoxic multinodular goiter (principal)
CPT/HCPCS: 76536

== ENCOUNTER → 2021-11-09 | Outpatient (CLI) | payer OTHER ==
[2021-11-09 08:29] VITALS: BP 119/79; PULSE 78; RESP 18; TEMP 98
--- NOTE | 2021-11-09 14:22 | P.PAINPG ---
PQRS Measure Charge Sheet Comment: HISTORY OF PRESENT ILLNESS: 41 yr old female w at side as a referral from the [facility] presents today with severe and chronic LBP secondary to for evaluation. 8/10 constant, pinching/sharp pressure in the mid to lower aspects of her lumbar spine . Provoked with laying on her side. Relieved with PT once a week for 2 mo, chiropractic treatments in 2019 semimonthly for 6 mo, heat, medications (Lyrica, topical Arnica), acupuncture, laying supine and rest. PMH: Hypothyroidism, MDD PSH: L Wrist Ganglion Cyst injection SH: Negative x 3. Has history. FH: PGM- Breast CA All: See list Meds: See list REVIEW OF ORGAN SYSTEMS: CONSTITUTIONAL: No fevers or chills. No recent weight loss. NEUROLOGICAL: + numbness and tingling along the distal extremities. No seizure disorders or headaches. MUSCULOSKELETAL: + pain PSYCHIATRIC: Denies current depression or suicidal thoughts. Physical Examinations : Constitutional : Cooperative , not in acute distress . Neurologic : Cranial nerve II to XII intact. No focal neurological deficits. Psychiatric : alert & oriented x 3. Matching mood & appropriate affect. Judgment & insight intact. Musculoskeletal : Cervical Spine Motor strength in the deltoid and biceps: Normal right side. Normal Left side Motor strength biceps and the wrist extensors: Normal right side . Normal left side Motor strength in the triceps muscle: Normal right side. Normal left side Deep tendon reflexes: Normal at the biceps. Normal at Brachioradialis. Normal at triceps Vertebral body tenderness to deep palpation over Cervical facet loading test: positive bilaterally Spurling test: positive bilaterally Neck distraction test: positive bilaterally Lillian sign: positive bilaterally Lumbar spine Motor strength lower extremities ,thigh and legs 5/5 Right side , 5/5 Left side Deep tendon reflexes : Normal Knee Jerk. Normal Ankle Jerk Vertebral body tenderness over Lumbar facet Loading Test: positive Right / positive Left over BL L3-L5 Range of motion of the lumbar spine Flexion 30 degrees, extension 10 degrees Straight Leg Raise test: Left/ Right positive at degree Hernandez test: positive right / positive left. Severe tenderness over the Sacroiliac joint on the Right / Left sides Gaenslen test: positive bilaterally Seated flexion test: positive bilaterally. Sacral spine : Severe tenderness over the Sacroiliac joint: right side / left side Range of motion: Flexion of the lumbar spine <60 degrees Range of motion: Extension of the lumbar spine <20 degrees Gaenslen's Test positive Raman's Test positive Hernandez test: positive right side / left side Thigh Thrust Test Sacral Thrust Test Imaging: MRI without contrast of the lumbar spine from 07/17/21 reviewed Assessment/ Plan : Lumbar DDD Recommendation of BL facet blocks of the MBs L4-L5, L5-S1. May need a series of injections, up until RFA, for optimal pain relief. Risks, benefits of procedure discussed and patient verbalized understanding. Denies aspirin or anti- coagulant use or medical history of diabetes. Protocol for discontinuation/ continuation of medications jeannie procedure discussed. Recommendation of Lidoderm 5% patches apply to AA QAM prn pain , remove at bedtime #30 w 1 refill All questions answered. I have spent greater than 30 minutes on patient care today. Dr Zurita was available by phone for the evaluation of this patient. The time was used to review the medical records including relevant urine studies and Prescription history (MAPs), review of the available imaging, evaluation and examination of the patient, coordination of care with the medical staff and if applicable referring physicians, as well as creation of the medical record - Pain Location Bilateral Lower Back Non-Pharmacological Interventions: Chiropractic Treatment, Heat, Ice, Massage, Physical Therapy, Sitting Pharmacological Interventions: Scheduled Medication, Topical Medication PQRS Narrative: Smoking Status Never smoker Home Medications: Ambulatory Orders Escitalopram [Lexapro] 10 mg PO DAILY 11/28/20 Levothyroxine Sodium [Synthroid] 50 mcg PO DAILY 11/28/20 Multivitamins, Thera [Multivitamin (formulary)] 1 tab PO DAILY 11/28/20 buPROPion SR [Wellbutrin SR] 150 mg PO BID 11/28/20 Pregabalin [Lyrica] 100 mg PO BID 11/09/21 Controlled Substance Measures - Controlled Substance Measures Is patient prescribed a controlled substance at discharge?: No
== END ==
LOC: PNWHC3 07:54
PROVIDERS: ATTEND Specialist
DX: M51.36 Other intervertebral disc degeneration, lumbar region (principal); E03.9 Hypothyroidism, unspecified; Z91.030 Bee allergy status; Z91.040 Latex allergy status
CPT/HCPCS: 99211

== ENCOUNTER → 2021-12-03 | Outpatient (CLI) | payer OTHER ==
[2021-12-03 14:46] LABS: T4, Free (Free Thyroxine) 0.96 ng/dL (0.800-1.800)
== END | disposition home or self-care (01) ==
LOC: LABWHC1 08:48
PROVIDERS: ATTEND Internal Medicine Endocrinology, Diabetes & Metabolism
DX: E04.2 Nontoxic multinodular goiter (principal)
CPT/HCPCS: 36415; 84439; 84443

== ENCOUNTER 2021-12-04 12:07 | Day surgery (SDC) | payer OTHER ==
[2021-12-01 16:19] VITALS: BMI 38.0
[~2021-12-04 12:07] MED LIST: LIDOCAINE 1% (10MG/ML) FOR IV START INTRADERMA PRN
[2021-12-04 12:28] VITALS: TEMP 98
[2021-12-04] MEDS: LACTATED RINGERS 1,000 ML IV SCH ×2 (12:44→13:07)
[2021-12-04] MEDS ORDERED: fentaNYL (PF) 50 MCG/ML 2 ML AMP ONE (13:09)
[2021-12-04] MEDS ORDERED: methylPREDNISolone ACETATE 40 MG/ML 1 ML VIAL ONE (13:09)
[2021-12-04] MEDS ORDERED: MIDAZOLAM 2 MG/2 ML VIAL ONE (13:09)
[2021-12-04] MEDS ORDERED: ROPIVACAINE 5MG/ML 20ML VIAL ONE (13:09)
[2021-12-04] MEDS ORDERED: IV FLUID CONTINUATION 500 ML IV ONE (13:31)
[2021-12-04] MEDS ORDERED: LACTATED RINGERS 1,000 ML IV ONE (13:31)
--- NOTE | 2021-12-04 13:31 | P.PCN ---
Date of Procedure: 12/04/21 Procedure(s) Performed: PREOPERATIVE DIAGNOSIS : 1- Lumbar spondylosis with Facet Arthropathy without myelopathy . 2- Lumber degenerative disc disease POSTOPERATIVE DIAGNOSIS: 1- Lumbar spondylosis with Facet Arthropathy without myelopathy . 2- Lumber degenerative disc disease PROCEDURE: Diagnostic bilateral L3 , L4 , and L5 medial branch block under fluoroscopy guidance(fluoroscopy images available in the radiology Department ) ( To target the facet joint between bilateral L4-5 , and L5-S1 )## 1st ANESTHESIA:, Monitored anesthesia care as per anesthesia department. EBL: Minimal COMPLICATION: None PROCEDURE INDICATION: Chronic low back pain secondary to Facet arthropathy unresponsive to conservative treatment. PROCEDURE DESCRIPTION: the patient was seen and identified in the preop holding area , risks and benefits and possible complications of the procedure and alternative were discussed with the patient, and the patient agreed to proceed with the procedure and signed the consent and vital signs monitored during the procedure and fluoroscopy was used to maximize the benefit and accuracy of the needle placement, and sedation was given to decrease patient anxiety, patient was taken to the procedure room and placed in prone position vital signs monitored in the back prepped with chlorhexidine X3 then under strict sterile technique using a right oblique fluoroscopy ,the junction of the transverse process and the superior articulating process of the right L3 , L4 , and L5 vertebra which corresponding to the fluoroscopy image of the eye of the Álvaro dog on the block side for the medial branches and subsequently , after local infiltration of skin and subcu tissuies with Ropivacaine 0.5 % , one mL at each level ,then 22-gauge Quincke-type needles , 3 needle was used , each one of them placed at the junction of the base of the transverse process and the superior articular process at the appropriate level, and the needle was advanced until the periosteum contacted, needle placement confirmed with AP oblique and lateral view and after appropriate needle placement confirmed, and after negative aspiration for heme and CSF and there was no paresthesia 1-1/2 mL of Ropivacaine 0.5% mixed with 20 mg Depo-Medrol , then half mL injected at each level after negative aspiration the needle subsequently removed and the same procedure repeated for the left side at left side at L3 , L4 and L5 levels. At the end of the procedure and the needles removed and a bandage applied after the skin was cleaned the cleaning solution patient taken to recovery room in stable condition and monitors in the recovery room for 20-30 minutes and discharged home in stable condition after discharge criteria met and patient will follow up with the pain clinic in 2-4 weeks
[2021-12-04 13:35] VITALS: RESP 18
--- NOTE | 2021-12-04 13:35 | FL ---
EXAMINATION TYPE: FL guided pain mgmt statistic DATE OF EXAM: 12/04/2021 HISTORY: Fluoroscopy time 11 seconds of fluoroscopy provided. IMPRESSION: 1. Fluoroscopy time.
[2021-12-04 13:53] VITALS: BP 115/74; PULSE 62
== END 2021-12-04 14:02 | disposition home or self-care (01) ==
LOC: ORPAIN 12:07
PROVIDERS: ATTEND Specialist
DX: M47.816 Spondylosis without myelopathy or radiculopathy, lumbar region (principal); M51.36 Other intervertebral disc degeneration, lumbar region; G89.29 Other chronic pain; G47.33 Obstructive sleep apnea (adult) (pediatric); E07.9 Disorder of thyroid, unspecified; F43.10 Post-traumatic stress disorder, unspecified; Z91.030 Bee allergy status; Z91.040 Latex allergy status; Z79.890 Hormone replacement therapy; Z79.899 Other long term (current) drug therapy
CPT/HCPCS: 81025; 64493; 64494; J2250; J1030; J3010; J2795

== ENCOUNTER 2021-12-25 08:57 | Day surgery (SDC) | payer OTHER ==
[2021-12-25] MEDS ORDERED: LIDOCAINE 1% (10MG/ML) FOR IV START INTRADERMA ONE (09:35)
[2021-12-25] MEDS ORDERED: LACTATED RINGERS 1,000 ML IV ONE (09:35)
[2021-12-25 09:38] VITALS: TEMP 98.4
[2021-12-25] MEDS ORDERED: LACTATED RINGERS 1,000 ML IV SCH (09:40)
[2021-12-25] MEDS ORDERED: LIDOCAINE 1% (10MG/ML) FOR IV START INTRADERMA PRN (09:40)
[2021-12-25] MEDS ORDERED: ROPIVACAINE 5 MG/ML 20 ML AMPULE ONE (09:41)
[2021-12-25] MEDS ORDERED: fentaNYL (PF) 50 MCG/ML 2 ML AMP ONE (09:41)
[2021-12-25] MEDS ORDERED: methylPREDNISolone ACETATE 40 MG/ML 1 ML VIAL ONE (09:41)
[2021-12-25] MEDS ORDERED: MIDAZOLAM 2 MG/2 ML VIAL ONE (09:41)
[2021-12-25] MEDS ORDERED: IV FLUID CONTINUATION 1,000 ML IV ONE (10:03)
[2021-12-25 10:17] VITALS: BP 103/68; PULSE 68; RESP 16
--- NOTE | 2021-12-25 10:27 | FL ---
EXAMINATION TYPE: FL guided pain mgmt statistic DATE OF EXAM: 12/25/2021 HISTORY: Fluoroscopy time 9 seconds of fluoroscopy provided. IMPRESSION: 1. Fluoroscopy time.
== END 2021-12-25 10:33 | disposition home or self-care (01) ==
LOC: ORPAIN 08:57
PROVIDERS: ATTEND Specialist
DX: M54.59 Other low back pain (principal); M51.36 Other intervertebral disc degeneration, lumbar region; H81.90 Unspecified disorder of vestibular function, unspecified ear; E07.9 Disorder of thyroid, unspecified; F43.10 Post-traumatic stress disorder, unspecified; F41.9 Anxiety disorder, unspecified; G90.50 Complex regional pain syndrome I, unspecified; K21.9 Gastro-esophageal reflux disease without esophagitis; Z98.890 Other specified postprocedural states; Z79.890 Hormone replacement therapy; Z79.899 Other long term (current) drug therapy
CPT/HCPCS: 81025; 64493; 64494; J2250; J1030; J3010; J2795

== ENCOUNTER → 2022-01-14 | Outpatient (CLI) | payer OTHER ==
[2022-01-14 08:37] VITALS: BP 129/80; PULSE 76; RESP 18; TEMP 99.3
--- NOTE | 2022-01-14 09:51 | P.PAINPG ---
PQRS Measure Charge Sheet Comment: A 41 yr oldfemale with a history of severe and chronic low back pain secondary to lumbar degenerative disc diseases and lumbar spondylosis with facet arthropathy without myelopathy presents today for BL MBB L3-L5. Pt states she experienced 90% pain relief x 1 day s/p procedure. Pain level is currently at 8 /10 in intensity, constant, localized in lower lumbar spine, sharp in character w shooting towards the L hip and RLE. Pain is provoked by standing for periods of 10 min or more. Pain is alleviated with wheelchair use for ambulation, meds (Lyrica), PT x 6 wks currently in, chiropractic treatments 2 yrs ago, heat, ice and inactivity. Interventional pain procedures completed include BL MBB L3-5 x2. Patient is currently on Lyrica, Lidoderm Patient denies any side effects of the medication(s), denies excessive drowsiness or sleepiness, denies suicidal ideation and reports that the current pain medication is helping to control the pain and improve activities of daily living. Patient denies any motor or sensory deficits. Patient denies any fever or night sweats, denies any change in the bowel movements or urination. Physical Examination: -Constitutional: Cooperative. Not in acute distress . - Neurologic: Cranial nerve II to XII intact. No focal neurological deficits. - Psychatric: Alert & oriented x 3. Matching mood & appropriate affect. Judgment and insight intact. - Musculoskeletal: Cervical spine: Muscle bulk/ tone/ strength in the bilateral upper extremities normal Vertebral body tenderness to palpation over Spurling test positive Distraction test positive Facet loading test positive Thoracic spine Muscle bulk / tone/ strength in the bilateral paraspinal muscles normal Vertebral body tender to palpation over Facet loading test positive Lumbar spine: Motor bulk/ tone/ strength lower extremities , thigh and legs : 5/5 Deep tendon reflexes : Normal Knee Jerk. Normal Ankle Jerk . Vertebral body tenderness to palpation over Lumbar Facet Loading Test positive over BL L4-L5, L5-S1 w accompanying paraspinal TTP, R>L Straight Leg Raise: positive at 30 degrees right side/ left side Gaenslen's Test positive Sacral spine : Severe tenderness over the Sacroiliac joint: right side / left side Range of motion: Flexion of the lumbar spine <60 degrees Range of motion: Extension of the lumbar spine <20 degrees Gaenslen's Test positive Raman's Test positive Hernandez test: positive right side / left side Thigh Thrust Test Sacral Thrust Test Assessment and plan: Chronic low back pain secondary to lumbar degenerative disc disease , lumbar spondylosis with facet arthropathy without myelopathy Recommendation of BL RFA L4-L5, L5-S1. PT exhibited sufficient and substantial pain relief s/p procedures. Risks, benefits of procedure discussed and pt verbalized understanding. Denies anticoagulant use or medical history of diabetes. All patient questions answered MAPS reviewed and it was appropriate. I have spent less than 30 minutes on patient care today. Dr Zurita was available by phone for the evaluation of this patient. The time was used to review the medical records including relevant urine studies and Prescription history (MAPs), review of the available imaging, evaluation and examination of the patient, coordination of care with the medical staff and if applicable referring physicians, as well as creation of the medical record PQRS Narrative: Smoking Status Never smoker Hx Alcohol Use (MH) No Home Medications: Ambulatory Orders Escitalopram [Lexapro] 20 mg PO QAM 11/28/20 Levothyroxine Sodium [Synthroid] 50 mcg PO QAM 11/28/20 Multivitamins, Thera [Multivitamin (formulary)] 1 tab PO DAILY 11/28/20 Pregabalin [Lyrica] 100 mg PO BID 11/09/21 busPIRone HCl [Buspar] 10 mg PO BID 12/01/21 Lidocaine 5% Patch [Lidoderm] 1 each TRANSDERM QAM 01/07/22 Controlled Substance Measures - Controlled Substance Measures Is patient prescribed a controlled substance at discharge?: No
== END ==
LOC: PNWHC3 07:53
PROVIDERS: ATTEND Specialist
DX: M51.36 Other intervertebral disc degeneration, lumbar region (principal); M47.816 Spondylosis without myelopathy or radiculopathy, lumbar region; G89.29 Other chronic pain; Z91.030 Bee allergy status; Z91.040 Latex allergy status
CPT/HCPCS: 99211

== ENCOUNTER 2022-02-19 11:34 | Day surgery (SDC) | payer OTHER ==
[~2022-02-19 11:34] MED LIST changes: +LACTATED RINGERS 1,000 ML IV SCH
[2022-02-19 12:22] VITALS: TEMP 97
[2022-02-19] MEDS ORDERED: ONDANSETRON 4 MG/2 ML VIAL ONE (13:05)
[2022-02-19] MEDS ORDERED: ONDANSETRON 4 MG/2 ML VIAL IVP ONE (13:06)
[2022-02-19] MEDS ORDERED: methylPREDNISolone ACETATE 40 MG/ML 1 ML VIAL ONE (13:09)
[2022-02-19] MEDS ORDERED: ROPIVACAINE 5 MG/ML 20 ML AMPULE ONE (13:09)
[2022-02-19] MEDS ORDERED: fentaNYL (PF) 50 MCG/ML 2 ML AMP ONE (13:10)
[2022-02-19] MEDS ORDERED: MIDAZOLAM 2 MG/2 ML VIAL ONE (13:10)
--- NOTE | 2022-02-19 13:37 | P.PCN ---
Date of Procedure: 02/19/22 Procedure(s) Performed: PREOPERATIVE DIAGNOSIS: 1-Lumbar Spondylosis with Facet Arthropathy without myelopathy. 2- Lumber degenerative disc disease. POSTOPERATIVE DIAGNOSIS: 1- Lumbar Spondylosis with Facet Arthropathy without myelopathy. 2- Lumber degenerative disc disease. PROCEDURES : Bilateral Radiofrequency thermocoagulation, L3 , L4 , and L5 medial branch, with fluoroscopic guidance (fluoroscopy images available in the radiology department) ( to denervate the facet joint at bilateral L4-5 ,and L5-S1 levels ). ANESTHESIA: Monitored anesthesia care as per anesthesia departmen. EBL: Minimal PROCEDURE INDICATION: The patient with low back pain secondary to lumbar facet arthropathy who had more than 90% relief of her pain with previous diagnostic lumbar medial branch block with bupivacaine. PROCEDURE DESCRIPTION / TECHNIQUE: The patient was seen and identified in the preoperative area. Risks, benefits, complications, including but not limited to risk of infection ,bleeding , allergic reactions to the medications and no complete pain releife , and alternatives were discussed with the patient, the patient agreed to proceed with the procedure and signed the consent. IV was started. Vital signs remained stable throughout the procedure. Patient was taken to the OR and time out was completed. The patient was placed in the prone position on the procedure table. The lumber area was prepped and draped in the usual sterile fashion. . Vital signs were closely monitored during the procedure .IV sedation was used during the procedure to decrease patients anxiety. Using AP and then oblique fluoroscopy, the ``eye of the Álvaro dog corres ponding to the connection between the superior and transverse articular processes of right L3, L4, and L5 were identified, marked, and localized with 1% lidocaine. Subsequently, a 18 [id number] radiofrequency cannula with a 10- mm active tip was advanced guided by fluoroscopy to each of the``eyes of the Álvaro dog at right L3, L4, and L5. Each site then underwent sensory testing at 50 Hz and 0 to 1 volt and motor testing at 2.5 Hz and 0 to 3 volt with local stimulation, but no radicular symptoms down the legs. Thereafter each sites underwent radiofrequency thermocoagulation at 80 degrees celsius for 90 seconds after injecting 0.5 ml of PF Ropivacaine 1ml, then after the thermocoagulation done , 1 ml of the block solution containing Depo-Medrol 20 mg and 3 ml of Ropivacaine 0.5% was injected at the right L3 , L4 , and L5 , levels after negative aspiration of CSF and blood and with no paresthesias. Cannulas were retracted while injecting lidocaine 1% until the needle is out. The same procedure was repeated at the level of Left L3, L4, and L5 levels. At the end of the procedure, the skin was cleansed and bandages were applied. COMPLICATIONS: No acute complications. DISPOSITION / PLANS: The patient was placed in a supine position and transferred to the recovery area in a stable condition for observation and was discharged from the recovery room after meeting discharge criteria. Home discharge instructions given to the patient by the staff. The patient was reexamined prior to discharge. The patient will schedule a follow up in the clinic in 2-4 weeks.
[2022-02-19] MEDS ORDERED: IV FLUID CONTINUATION 800 ML IV ONE (13:43)
[2022-02-19 13:45] VITALS: RESP 16
--- NOTE | 2022-02-19 13:51 | FL ---
Fluoroscopy HISTORY: Pain 34 seconds fluoroscopy time supplied to the referring clinician. 6 intraoperative C-arm images docum ent the procedure. See dictated report from anesthesia.
[2022-02-19 14:02] VITALS: BP 121/81; PULSE 82
== END 2022-02-19 14:15 | disposition home or self-care (01) ==
LOC: ORPAIN 11:34
PROVIDERS: ATTEND Specialist
DX: M47.816 Spondylosis without myelopathy or radiculopathy, lumbar region (principal); M51.36 Other intervertebral disc degeneration, lumbar region; G47.33 Obstructive sleep apnea (adult) (pediatric); E07.9 Disorder of thyroid, unspecified; K21.9 Gastro-esophageal reflux disease without esophagitis; Z79.899 Other long term (current) drug therapy; Z79.890 Hormone replacement therapy; Z99.89 Dependence on other enabling machines and devices
CPT/HCPCS: 81025; 64635; 64636; J2250; J1030; J2405; J3010; J2795

== ENCOUNTER → 2022-03-04 | Outpatient (CLI) | payer OTHER ==
[2022-03-04 08:31] VITALS: BP 136/99; PULSE 84; RESP 16; TEMP 98.4
--- NOTE | 2022-03-04 08:36 | P.PAINPG ---
PQRS Measure Charge Sheet Comment: A 42 yr old wheelchair bound female with a history of severe and chronic low back pain secondary to lumbar DDD, BL Sacroiliitis and spondylosis with facet arthropathy without myelopathy presents today for evaluation s/p BL RFA L3-L5. Pt states she experienced 30% pain relief s/p procedure. Pain level is cu rrently at 4/10 in intensity, constant, localized in the lower lumbar spine, sore in character w shooting towards the BL knees. Pain is provoked by sitting for periods of 30 min or more. Pain is alleviated with PT currently, heat, ice, topicals, acupuncture, repositioning and rest. Interventional pain procedures completed include BL RFA L3-L5 Patient is currently on DENIES Patient denies any side effects of the medication(s), denies excessive drowsiness or sleepiness, denies suicidal ideation and reports that the current pain medication is helping to control the pain and improve activities of daily living. Patient denies any motor or sensory deficits. Patient denies any fever or night sweats, denies any change in the bowel movements or urination. Physical Examination: -Constitutional: Cooperative. Not in acute distress . - Neurologic: Cranial nerve II to XII intact. No focal neurological deficits. - Psychatric: Alert & oriented x 3. Matching mood & appropriate affect. Judgment and insight intact. - Musculoskeletal: Cervical spine: Muscle bulk/ tone/ strength in the bilateral upper extremities normal Vertebral body tenderness to palpation over Spurling test positive Distraction test positive Facet loading test positive Thoracic spine Muscle bulk / tone/ strength in the bilateral paraspinal muscles normal Vertebral body tender to palpation over Facet loading test positive Lumbar spine: Motor bulk/ tone/ strength lower extremities , thigh and legs : 5/5 Deep tendon reflexes : Normal Knee Jerk. Normal Ankle Jerk . Vertebral body tenderness to palpation over Lumbar Facet Loading Test positive Straight Leg Raise: positive at 30 degrees right side/ left side Gaenslen's Test positive Sacral spine : Severe tenderness over the Sacroiliac joint: right side / left side Range of motion: Flexion of the lumbar spine <60 degrees Range of motion: Extension of the lumbar spine <20 degrees Gaenslen's Test positive BL Hernandez test: positive right side / left side BL Thigh Thrust Test L/R Sacral Thrust Test Assessment and plan: Chronic low back pain secondary to lumbar DDD, spondylosis with facet arthropathy without myelopathy, BL Sacroiliitis Recommendation of BL SI injection. May need a series of injections, up to 4 within a 12 month timeframe, for optimal pain relief. Risks, benefits of procedure discussed and pt verbalized understanding. Denies anticoagulant use or medical history of diabetes. Handicap placard application completed. All patient questions answered I have spent less than 30 minutes on patient care today. Dr Zurita was available by phone for the evaluation of this patient. The time was used to review the medical records including relevant urine studies and Prescription history (MAPs), review of the available imaging, evaluation and examination of the patient, coordination of care with the medical staff and if applicable referring physicians, as well as creation of the medical record PQRS Narrative: Smoking Status Never smoker Hx Alcohol Use (MH) No Home Medications: Ambulatory Orders Levothyroxine Sodium [Synthroid] 50 mcg PO QAM 11/28/20 Multivitamins, Thera [Multivitamin (formulary)] 1 tab PO DAILY 11/28/20 Pregabalin [Lyrica] 100 mg PO BID 11/09/21 busPIRone HCl [Buspar] 10 mg PO BID 12/01/21 Lidocaine 5% Patch [Lidoderm] 1 each TRANSDERM QAM PRN 01/07/22 DULoxetine HCL [Cymbalta] 20 mg PO DAILY 02/17/22 Controlled Substance Measures - Controlled Substance Measures Is patient prescribed a controlled substance at discharge?: No
== END ==
LOC: PNWHC3 08:00
PROVIDERS: ATTEND Specialist
DX: M47.816 Spondylosis without myelopathy or radiculopathy, lumbar region (principal); G89.29 Other chronic pain; M51.36 Other intervertebral disc degeneration, lumbar region; M46.1 Sacroiliitis, not elsewhere classified; Z91.030 Bee allergy status; Z91.040 Latex allergy status
CPT/HCPCS: 99211

== ENCOUNTER 2022-05-04 09:17 | Day surgery (SDC) | payer OTHER ==
[2022-05-04 09:48] VITALS: TEMP 98.5
[2022-05-04] MEDS: LACTATED RINGERS 1,000 ML IV SCH ×2 (09:50→09:57)
[2022-05-04] MEDS ORDERED: methylPREDNISolone ACETATE 40 MG/ML 1 ML VIAL ONE (09:59)
[2022-05-04] MEDS ORDERED: ROPIVACAINE 5 MG/ML 20 ML AMPULE ONE (09:59)
[2022-05-04] MEDS ORDERED: IOPAMIDOL M200 10 ML VIAL ONE (09:59)
[2022-05-04] MEDS ORDERED: MIDAZOLAM 2 MG/2 ML VIAL ONE (09:59)
[2022-05-04] MEDS ORDERED: fentaNYL (PF) 50 MCG/ML 2 ML AMP ONE (09:59)
--- NOTE | 2022-05-04 10:09 | P.PCN ---
Date of Procedure: 05/04/22 Description of Procedure: Procedure: Sacroiliac joint injection bilateral Preoperative diagnosis: Sacroiliitis Postoperative diagnosis: Sacroiliitis Imaging: Fluoroscopy was used, images where saved to the medical record Complications: none ANESTHESIA: Medication Administered by: Nurse Sedation Type: Moderate sedation Sedation Supervision start time: 1001 Sedation Supervision end time: 1008 Description of the procedure: procedure risk and benefits discussed with the patient, including but not limited, risk of infection and bleeding, and allergic reaction to the medication and incomplete pain relief. Patient agreed and signed consent. Patient was taken to the room and placed in a prone position. Chlorhexidine was used to cleanse the skin. Under sterile conditions patient skin was anesthetized 1% lidocaine. Subcutaneous tissues were also anesthetized with a total 5 mL of 1% lidocaine. After that, a 22-gauge spinal needle was advanced through the anesthetized location under fluoroscopic guidance. Needle was advanced into the inferior portion of the sacroiliac joint. IV contrast was used to confirm spread within the joint. After adequate spread was achieved, 2.5 ML's of 0.5% ropivacaine with 40 mg of depomedrol was injected into the joint (steroid split between both sides if bilateral). Patient tolerated the procedure well. Sent to the recovery room in stable condition. Patient will follow up as directed.
[2022-05-04] MEDS ORDERED: IV FLUID CONTINUATION 1,000 ML IV ONE (10:10)
--- NOTE | 2022-05-04 10:22 | FL ---
Intraoperative/procedural fluoroscopic services were provided for bilateral SI joint injection. Total fluoroscopy time is 5 seconds with a total of 2 submitted images to PACS. Please see the operative n ote for further details.
[2022-05-04 10:31] VITALS: BP 119/81; PULSE 95; RESP 16
== END 2022-05-04 10:41 | disposition home or self-care (01) ==
LOC: ORPAIN 09:17
PROVIDERS: ATTEND Hospitalist
DX: M46.1 Sacroiliitis, not elsewhere classified (principal)
CPT/HCPCS: 81025; 27096; J2250; J1030; J3010; Q9966; J2795

== ENCOUNTER 2022-05-11 08:50 | Day surgery (SDC) | payer OTHER ==
--- NOTE | 2021-12-25 10:02 | P.PCN ---
Date of Procedure: 12/25/21 Procedure(s) Performed: PREOPERATIVE DIAGNOSIS : 1- Lumbar spondylosis with Facet Arthropathy without myelopathy . 2- Lumber degenerative disc disease POSTOPERATIVE DIAGNOSIS: 1- Lumbar spondylosis with Facet Arthropathy without myelopathy . 2- Lumber degenerative disc disease PROCEDURE: Diagnostic bilateral L3 , L4 , and L5 medial branch block under fluoroscopy guidance(fluoroscopy images available in the radiology Department ) ( To target the facet joint between bilateral L4-5 , and L5-S1 )# 2nd ANESTHESIA:, Monitored anesthesia care as per anesthesia department. EBL: Minimal COMPLICATION: None PROCEDURE INDICATION: Chronic low back pain secondary to Facet arthropathy unresponsive to conservative treatment. PROCEDURE DESCRIPTION: the patient was seen and identified in the preop holding area , risks and benefits and possible complications of the procedure and alternative were discussed with the patient, and the patient agreed to proceed with the procedure and signed the consent and vital signs monitored during the procedure and fluoroscopy was used to maximize the benefit and accuracy of the needle placement, and sedation was given to decrease patient anxiety, patient was taken to the procedure room and placed in prone position vital signs monitored in the back prepped with chlorhexidine X3 then under strict sterile technique using a right oblique fluoroscopy ,the junction of the transverse process and the superior articulating process of the right L3 , L4 , and L5 vertebra which corresponding to the fluoroscopy image of the eye of the Álvaro dog on the block side for the medial branches and subsequently , after local infiltration of skin and subcu tissuies with Ropivacaine 0.5 % , one mL at each level ,then 22-gauge Quincke-type needles , 3 needle was used , each one of them placed at the junction of the base of the transverse process and the superior articular process at the appropriate level, and the needle was advanced until the periosteum contacted, needle placement confirmed with AP oblique and lateral view and after appropriate needle placement confirmed, and after negative aspiration for heme and CSF and there was no paresthesia 1-1/2 mL of Ropivacaine 0.5% mixed with 20 mg Depo-Medrol , then half mL injected at each level after negative aspiration the needle subsequently removed and the same procedure repeated for the left side at left side at L3 , L4 and L5 levels. At the end of the procedure and the needles removed and a bandage applied after the skin was cleaned the cleaning solution patient taken to recovery room in stable condition and monitors in the recovery room for 20-30 minutes and discharged home in stable condition after discharge criteria met and patient will follow up with the pain clinic in 2-4 weeks
[2022-01-07 09:17] VITALS: BMI 37.5
[~2022-05-11 08:50] MED LIST changes: +ONDANSETRON 4 MG/2 ML VIAL IVP PRN
[2022-05-11 09:25] VITALS: TEMP 98.4
[2022-05-11] MEDS ORDERED: LIDOCAINE 2% INJ 20 MG/ML (2 ML VIAL) ONE (09:42)
[2022-05-11] MEDS ORDERED: PROPOFOL 10 MG/ML 20 ML VIAL IV ONE (09:42)
--- NOTE | 2022-05-11 10:04 | P.PCN ---
Date of Procedure: 05/11/22 Procedure(s) Performed: BRIEF HISTORY: Patient is a 42-year-old pleasant white female scheduled for an elective colonoscopy as a part of screening for colon cancer and family history of colon cancer. Her paternal grandmother and maternal grandfather diagnosed with colon cancer in his 60s and 70s respectively. PROCEDURE PERFORMED: Colonoscopy. PREOPERATIVE DIAGNOSIS: Screening for colon cancer and family history of colon cancer. IV sedation per Anesthesia. PROCEDURE: After informed consent was obtained, the patient, was brought into the endoscopy unit. IV sedation was administered by Anesthesia under continuous monitoring. Digital rectal examination was normal. Initially the Olympus CF-160 flexible video colonoscope was then inserted in the rectum, gradually advanced into the cecum without any difficulty. Careful examination was performed as the scope was gradually being withdrawn. Ileocecal valve and the appendiceal orifice were visualized and appeared normal. Prep was excellent. Mucosa of the cecum, ascending colon, transverse colon, descending colon, sigmoid colon, and rectum appeared normal. Retroflexion was performed in the rectum and no lesions were seen. The patient tolerated the procedure well. IMPRESSION: Normal-appearing colon from rectum to cecum with no evidence of colorectal neoplasia . RECOMMENDATIONS: Findings of this examination were discussed with the patient as well as a family. She was advised to have a repeat colonoscopy every 5 years because of the family history of colon cancer.
[2022-05-11 10:10] VITALS: RESP 16
[2022-05-11 10:21] VITALS: BP 107/59; PULSE 69
== END 2022-05-11 11:02 | disposition home or self-care (01) ==
LOC: ORWHC2ENDO 08:50
PROVIDERS: ATTEND Internal Medicine Gastroenterology
DX: Z12.11 Encounter for screening for malignant neoplasm of colon (principal); G40.909 Epilepsy, unspecified, not intractable, without status epilepticus; Z80.0 Family history of malignant neoplasm of digestive organs; Z91.040 Latex allergy status; Z79.899 Other long term (current) drug therapy
CPT/HCPCS: 45378; 81025; J2704; J2001

== ENCOUNTER → 2022-07-26 | Outpatient (CLI) | payer OTHER ==
--- NOTE | 2022-07-26 09:28 | P.PN ---
Subjective Progress Note Date: 07/26/22 This is 42 yr old female with a history of severe and chronic LBP, secondary to lumbar DDD and spondylosis with facet arthropathy without myelopathy presents today for evaluation s/p BL RFA medial branch lumbar area. Pt states she experienced 80 % pain relief, currently in OT, heat, heating pad use, med ications (Lyrica, Cymbalta), topicals, repositioning, use of orthopedic bed, laying supine and rest. Interventional pain procedures completed include BL RFA L3-L5, BL SI injection Patient is currently on Lyrica, Cymbalta Patient denies any side effects of the medication(s), denies excessive drowsiness or sleepiness, denies suicidal ideation and reports that the current pain medication is helping to control the pain and improve activities of daily living. Patient denies any motor or sensory deficits. Patient denies any fever or night sweats, denies any change in the bowel movements or urination. Physical Examination: -Constitutional: Cooperative. Not in acute distress . - Neurologic: Cranial nerve II to XII intact. No focal neurological deficits. - Psychatric: Alert & oriented x 3. Matching mood & appropriate affect. Judgment and insight intact. - Musculoskeletal: Cervical spine: Muscle bulk/ tone/ strength in the bilateral upper extremities normal Lumbar spine: Motor bulk/ tone/ strength lower extremities , thigh and legs : 5/5 Deep tendon reflexes : Normal Knee Jerk. Normal Ankle Jerk . Vertebral body tenderness to palpation over Lumbar Facet Loading Test positive TTP over BL L4-5, L5-S1 facets R>L Straight Leg Raise: positive at 30 degrees right side/ left side Gaenslen's Test positive Sacral spine : Severe tenderness over the Sacroiliac joint: right side / left side Range of motion: Flexion of the lumbar spine <60 degrees Range of motion: Extension of the lumbar spine <20 degrees Gaenslen's Test positive Hernandez test: positive right side / left side Thigh Thrust Test Sacral Thrust Test Assessment and plan: Chronic LBP secondary to lumbar DDD, spondylosis with facet arthropathy without myelopathy Pain improve significantly after RFA of the median branches lumbar spine at L4 5 and L5-S1 Description to follow up in the pain clinic when necessary All patient questions answered PQRS Narrative: Smoking Status Never smoker Hx Alcohol Use (MH) No Home Medications: Ambulatory Orders Levothyroxine Sodium [Synthroid] 50 mcg PO QAM 11/28/20 Multivitamins, Thera [Multivitamin (formulary)] 1 tab PO DAILY 11/28/20 Pregabalin [Lyrica] 100 mg PO BID 11/09/21 busPIRone HCl [Buspar] 10 mg PO BID 12/01/21 Lidocaine 5% Patch [Lidoderm] 1 each TRANSDERM QAM PRN 01/07/22 DULoxetine HCL [Cymbalta] 20 mg PO QAM 02/17/22 Controlled Substance Measures - Controlled Substance Measures Is patient prescribed a controlled substance at discharge?: No Objective - Vital Signs Vital signs: Intake & Output 07/25/22 07/26/22 07/26/22 18:59 06:59 18:59 Weight 102.058 kg
[2022-07-26 09:59] VITALS: BP 132/99; PULSE 108; RESP 18; TEMP 98.5
== END ==
LOC: PNWHC3 08:44
PROVIDERS: ATTEND Specialist
DX: M51.36 Other intervertebral disc degeneration, lumbar region (principal); M47.816 Spondylosis without myelopathy or radiculopathy, lumbar region; G89.29 Other chronic pain; Z91.02 Food additives allergy status; Z91.040 Latex allergy status
CPT/HCPCS: 99211

== ENCOUNTER 2022-11-01 11:59 | Emergency (ER) | payer OTHER ==
[2022-11-01 12:04] VITALS: RESP 18
[2022-11-01 13:05] VITALS: BP 140/103; PULSE 101; TEMP 98.5
[2022-11-01] MEDS ORDERED: MORPHINE SULFATE 4 MG/ML SYRINGE IVP STA ×2 (13:31→15:51)
[2022-11-01 13:53] LABS: Basophils # (A) 0.1 k/uL (0-0.2); Basophils % (A) 1 %; Eosinophils # (A) 0.2 k/uL (0-0.7); Eosinophils % (A) 3 %; HCT 42.8 % (34.0-46.0); HGB 14.1 gm/dL (11.4-16.0); Lymphocytes # (A) 2.9 k/uL (1.0-4.8); Lymphocytes % (A) 33 %; MCH 29.4 pg (25.0-35.0); MCV 89.3 fL (80.0-100.0); Monocytes # (A) 0.4 k/uL (0-1.0); Monocytes % (A) 5 %; Neutrophils # (A) 5.2 k/uL (1.3-7.7); Neutrophils % (A) 58 %; Platelet Count 347 k/uL (150-450); RDW 12.5 % (11.5-15.5); WBC 8.8 k/uL (3.8-10.6)
[2022-11-01 14:03] LABS: ALT 28 U/L (4-34); AST 32 U/L (14-36); African American GFR (CKD) >90 (>60 ml/min/1.73 sqM); Albumin 4.3 g/dL (3.5-5.0); Alkaline Phosphatase 86 U/L (38-126); Anion Gap 9 mmol/L; Blood Urea Nitrogen 10 mg/dL (7-17); Calcium 9.8 mg/dL (8.4-10.2); Carbon Dioxide 22 mmol/L (22-30); Chloride 107 mmol/L (98-107); Glucose 96 mg/dL (74-99); Non-African American GFR(CKD) >90 (>60 ml/min/1.73 sqM); Potassium 4.2 mmol/L (3.5-5.1); Sodium 138 mmol/L (137-145); Total Bilirubin 0.7 mg/dL (0.2-1.3); Total Protein 7.7 g/dL (6.3-8.2)
[2022-11-01 14:05] LABS: INR 0.9 (<1.2); Partial Thromboplastin Time 22.7 sec (22.0-30.0); Prothrombin Time 9.9 sec (9.0-12.0)
--- NOTE | 2022-11-01 14:33 | ED ---
Fall HPI - General Chief Complaint: Fall Stated Complaint: Fall on right side Time Seen by Provider: 11/01/22 12:44 Source: patient Mode of arrival: ambulatory - History of Present Illness Initial Comments: 22-year-old female past medical history of hyperlipidemia, thyroid disorder who presents to the emergency department after she sustained a fall. States that her heart rate was elevated at home. She felt lightheaded and fell to the ground because of her balance. She landed on an outstretched right arm. Does have right wrist and right arm pain. States that her balance that she has been going on for a significant period of time. Has had an echo and Holter monitoring however does not have a reason for her dizziness. Patient is right- hand dominant. Did not take anything for pain before coming in. Did not hit her head or lose consciousness. She is not taking any blood thinners. No other alleviating, precipitating or modifying factors - Related Data Home Medications Medication Instructions Recorded Confirmed Levothyroxine Sodium [Synthroid] 50 mcg PO QAM 11/28/20 06/25/22 Multivitamins, Thera [Multivitamin 1 tab PO DAILY 11/28/20 06/25/22 (formulary)] Pregabalin [Lyrica] 100 mg PO BID 11/09/21 06/25/22 busPIRone HCl [Buspar] 10 mg PO BID 12/01/21 06/25/22 Lidocaine 5% Patch [Lidoderm] 1 each TRANSDERM QAM PRN 01/07/22 06/25/22 DULoxetine HCL [Cymbalta] 20 mg PO QAM 02/17/22 06/25/22 Previous Rx's Medication Instructions Recorded HYDROcodone/APAP 7.5-325MG [[place] 1 tab PO Q4HR PRN 3 Days #18 tab 11/01/22 7.5-325] Allergies Allergy/AdvReac Type Severity Reaction Status Date / Time bee venom protein (honey bee) Allergy Anaphylaxis Verified 11/01/22 12:04 latex Allergy Rash/Hives Verified 11/01/22 12:04 Review of Systems ROS Statement: Those systems with pertinent positive or pertinent negative responses have been documented in the HPI. ROS Other: All systems not noted in ROS Statement are negative. Past Medical History Past Medical History: GERD/Reflux, Hearing Disorder / Deafness, Hyperlipidemia, Sleep Apnea/CPAP/BIPAP, Thyroid Disorder Additional Past Medical History / Comment(s): COVID MARCH 2022. Hypothyroid. Vestibular Disorder. 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 CPAP use. Vertigo. Hard of hearing in right ear. History of Any Multi-Drug Resistant Organisms: None Reported Past Surgical History: Orthopedic Surgery Additional Past Surgical History / Comment(s): Ganglion cyst removed from left wrist, wisdom teeth extracted, colposcopy X2. Past Anesthesia/Blood Transfusion Reactions: No Reported Reaction, Motion Sickness Additional Past Anesthesia/Blood Transfusion Reaction / Comment(s): Vertigo. Past Psychological History: Anxiety, Depression, PTSD Smoking Status: Never smoker Past Alcohol Use History: None Reported Past Drug Use History: None Reported - Past Family History Father Family Medical History: Cancer Additional Family Medical History / Comment(s): Prostate, breast and bone c ancer. Mother Family Medical History: Pulmonary Embolus General Exam Limitations: no limitations General appearance: alert, in no apparent distress Head exam: Present: atraumatic, normocephalic, normal inspection Eye exam: Present: normal appearance, PERRL, EOMI. Absent: scleral icterus, conjunctival injection, periorbital swelling ENT exam: Present: normal exam, mucous membranes moist Neck exam: Present: normal inspection. Absent: tenderness, meningismus, lymphadenopathy Respiratory exam: Present: normal lung sounds bilaterally. Absent: respiratory distress, wheezes, rales, rhonchi, stridor Cardiovascular Exam: Present: regular rate, normal rhythm, normal heart sounds. Absent: systolic murmur, diastolic murmur, rubs, gallop, clicks GI/Abdominal exam: Present: soft, normal bowel sounds. Absent: distended, tenderness, guarding, rebound, rigid Extremities exam: Present: tenderness (Patient has tenderness to palpation over the right scaphoid), normal capillary refill. Absent: pedal edema, joint swelling, calf tenderness Back exam: Present: normal inspection Neurological exam: Present: alert, oriented X3, CN II-XII intact Psychiatric exam: Present: normal affect, normal mood Skin exam: Present: warm, dry, intact, normal color. Absent: rash Course Vital Signs 11/01/22 11/01/22 12:02 13:04 Temperature 97.8 F 98.5 F Pulse Rate 92 101 H Respiratory 18 18 Rate Blood Pressure 134/91 140/103 O2 Sat by Pulse 98 98 Oximetry Procedures - Orthopedic Splinting/Casting Injury #1 Side: right Upper Extremity Injury Location: wrist Upper Extremity Immobilizer: thumb spica Medical Decision Making - Medical Decision Making Was pt. sent in by a medical professional or institution (, PA, BOAT LABORER, urgent care, hospital, or fdc...) When possible be specific @ -No Did you speak to anyone other than the patient for history (EMS, parent, family, police, friend...)? What history was obtained from this source @ -No Did you review nursing and triage notes (agree or disagree)? Why? @ -I reviewed and agree with nursing and triage notes Were old charts reviewed (outside hosp., previous admission, EMS record, old EKG, old radiological studies, urgent care reports/EKG's, fdc records)? Report findings @ -No old charts were reviewed Differential Diagnosis (chest pain, altered mental status, abdominal pain women, abdominal pain men, vaginal bleeding, weakness, fever, dyspnea, syncope, headache, dizziness, GI bleed, back pain, seizure, CVA, palpatations, mental health, musculoskeletal)? @ -Differential Musculoskeletal Muscular strain, contusion, ligament sprain, fracture, arthritis, septic arthritis, bursitis, cellulitis, muscle spasm, nerve compression, DVT, arterial occlusion, herpes zoster, electrolyte abnormality, tumor.... This is not meant to be in all inclusive list Differential Dizziness: Benign paroxysmal positional Vertigo, Menieres disease, otitis media, acoustic neuroma, vertebrobasilar insufficiency, cerebellar stroke, encephalitis, hypovolemic, arrhythmia, coronary artery syndrome, anemia, this is not meant to be an all-inclusive list EKG interpreted by me (3pts min.). @ -Yes and demonstrates sinus rhythm with a rate of 90. ME interval 128. QRS 81. QTC of 386. No acute ST segment elevations or depressions X-rays interpreted by me (1pt min.). @ -Yes several x-rays are performed, right wrist demonstrates a scaphoid fr acture CT interpreted by me (1pt min.). @ -None done U/S interpreted by me (1pt. min.). @ -None done What testing was considered but not performed or refused? (CT, X-rays, U/S, labs)? Why? @ -None What meds were considered but not given or refused? Why? @ -None Did you discuss the management of the patient with other professionals (professionals i.e. , PA, BOAT LABORER, lab, RT, psych nurse, social insurance administrator, horse racing manager, teacher, surveillance dual rate officer, case liner)? Give summary @ -No Was smoking cessation discussed for >3mins.? @ -No Was critical care preformed (if so, how long)? @ -No Were there social determinants of health that impacted care today? How? (Homelessness, low income, unemployed, alcoholism, drug addiction, tra nsportation, low edu. Level, literacy, decrease access to med. care, [facility], rehab)? @ -No Was there de-escalation of care discussed even if they declined (Discuss DNR or withdrawal of care, Hospice)? DNR status @ -No What co-morbidities impacted this encounter? (DM, HTN, Smoking, COPD, CAD, Cancer, CVA, ARF, Chemo, Hep., AIDS, mental health diagnosis, sleep apnea, morbid obesity)? @ -None Was patient admitted / discharged? Hospital course, mention meds given and route, prescriptions, significant lab abnormalities, going to OR and other pertinent info. @ -Upon arrival patient is placed in the hallway 11. History and physical exam was performed. IV access was established laboratory studies were conducted. Patient does go for x-ray of the right shoulder, wrist and elbow. She does have acute fracture of her scaphoid. She is placed in a thumb spica splint. Patient will be discharged home on [place]. She is given 2 doses of morphine in the emergency room. She is instructed to call the orthopedic surgeon tomorrow as she will need orthopedic follow-up and return for any new or worsening symptoms or patient was agreeable to plan she was discharged in stable condition Undiagnosed new problem with uncertain prognosis? @ -Yes Drug Therapy requiring intensive monitoring for toxicity (Heparin, Nitro, Insulin, Cardizem)? @ -No Were any procedures done? @ -Right wrist thumb spica splint Diagnosis/symptom? @ -Acute fall, acute right scaphoid fracture Acute, or Chronic, or Acute on Chronic? @ -Acute Uncomplicated (without systemic symptoms) or Complicated (systemic symptoms)? @ -Complicated Side effects of treatment? @ -No Exacerbation, Progression, or Severe Exacerbation? @ -No Poses a threat to life or bodily function? How? (Chest pain, USA, VT, pneumonia, PE, COPD, DKA, ARF, appy, cholecystitis, CVA, Diverticulitis, Homicidal, Suicidal, threat to staff... and all critical care pts) @ -No - Lab Data Result diagrams: 11/01/22 13:47 11/01/22 13:47 Lab Results 11/01/22 11/01/22 11/01/22 Range/Units 13:47 13:47 13:47 WBC 8.8 (3.8-10.6) k/uL RBC 4.80 (3.80-5.40) m/uL Hgb 14.1 (11.4-16.0) gm/dL Hct 42.8 (34.0-46.0) % MCV 89.3 (80.0-100.0) fL MCH 29.4 (25.0-35.0) pg MCHC 33.0 (31.0-37.0) g/dL RDW 12.5 (11.5-15.5) % Plt Count 347 (150-450) k/uL MPV 8.0 Neutrophils % 58 % Lymphocytes % 33 % Monocytes % 5 % Eosinophils % 3 % Basophils % 1 % Neutrophils # 5.2 (1.3-7.7) k/uL Lymphocytes # 2.9 (1.0-4.8) k/uL Monocytes # 0.4 (0-1.0) k/uL Eosinophils # 0.2 (0-0.7) k/uL Basophils # 0.1 (0-0.2) k/uL PT 9.9 (9.0-12.0) sec INR 0.9 (<1.2) APTT 22.7 (22.0-30.0) sec Sodium 138 (137-145) mmol/L Potassium 4.2 (3.5-5.1) mmol/L Chloride 107 (98-107) mmol/L Carbon Dioxide 22 (22-30) mmol/L Anion Gap 9 mmol/L BUN 10 (7-17) mg/dL Creatinine 0.59 (0.52-1.04) mg/dL Est GFR (CKD-EPI)AfAm >90 (>60 ml/min/1.73 sqM) Est GFR (CKD-EPI)NonAf >90 (>60 ml/min/1.73 sqM) Glucose 96 (74-99) mg/dL Calcium 9.8 (8.4-10.2) mg/dL Total Bilirubin 0.7 (0.2-1.3) mg/dL AST 32 (14-36) U/L ALT 28 (4-34) U/L Alkaline Phosphatase 86 (38-126) U/L Troponin I (0.000-0.034) ng/mL Total Protein 7.7 (6.3-8.2) g/dL Albumin 4.3 (3.5-5.0) g/dL 11/01/22 Range/Units 13:47 WBC (3.8-10.6) k/uL RBC (3.80-5.40) m/uL Hgb (11.4-16.0) gm/dL Hct (34.0-46.0) % MCV (80.0-100.0) fL MCH (25.0-35.0) pg MCHC (31.0-37.0) g/dL RDW (11.5-15.5) % Plt Count (150-450) k/uL MPV Neutrophils % % Lymphocytes % % Monocytes % % Eosinophils % % Basophils % % Neutrophils # (1.3-7.7) k/uL Lymphocytes # (1.0-4.8) k/uL Monocytes # (0-1.0) k/uL Eosinophils # (0-0.7) k/uL Basophils # (0-0.2) k/uL PT (9.0-12.0) sec INR (<1.2) APTT (22.0-30.0) sec Sodium (137-145) mmol/L Potassium (3.5-5.1) mmol/L Chloride (98-107) mmol/L Carbon Dioxide (22-30) mmol/L Anion Gap mmol/L BUN (7-17) mg/dL Creatinine (0.52-1.04) mg/dL Est GFR (CKD-EPI)AfAm (>60 ml/min/1.73 sqM) Est GFR (CKD-EPI)NonAf (>60 ml/min/1.73 sqM) Glucose (74-99) mg/dL Calcium (8.4-10.2) mg/dL Total Bilirubin (0.2-1.3) mg/dL AST (14-36) U/L ALT (4-34) U/L Alkaline Phosphatase (38-126) U/L Troponin I <0.012 (0.000-0.034) ng/mL Total Protein (6.3-8.2) g/dL Albumin (3.5-5.0) g/dL Disposition Clinical Impression: Fall, Scaphoid fracture, Right shoulder pain Disposition: HOME SELF-CARE Condition: Stable Instructions (If sedation given, give patient instructions): Scaphoid Fracture (ED) Additional Instructions: Wear the splint at all times and do not get it wet. Rest, ice and elevate the extremity. Take the pain medications as directed. Follow-up with orthopedic office and they will further manage or broken bone. Return for any new or worsening symptoms Prescriptions: HYDROcodone/APAP 7.5-325MG [[place] 7.5-325] 1 tab PO Q4HR PRN 3 Days #18 tab PRN Reason: Pain Is patient prescribed a controlled substance at d/c from ED?: Yes When asked, does pt state using other controlled substances?: No If prescribed controlled substance>3 days was MAPS reviewed?: Prescribed <3 Days Referrals: None,Stated [Primary Care Provider] - 1-2 days Manav Florez DO [Doctor of Osteopathic Medicine] - 1-2 days Time of Disposition: 15:56
--- NOTE | 2022-11-01 14:49 | XR ---
EXAMINATION TYPE: XR chest 2V DATE OF EXAM: 11/01/2022 COMPARISON: NONE TECHNIQUE: PA and lateral views submitted. HISTORY: Chest. FINDINGS: The lungs are clear and there is no pneumothorax, pleural effusion, or focal pneumonia. Heart size normal and no overt failure. Osseous structures demonstrate mild hypertrophic changes of the spine. IMPRESSION: 1. No acute process.
--- NOTE | 2022-11-01 14:49 | XR ---
EXAMINATION TYPE: XR elbow complete RT DATE OF EXAM: 11/01/2022 COMPARISON: NONE HISTORY: Pain FINDINGS: Three views of the elbow demonstrate no pathologic joint effusion. The osseous structures are intact . There is no acute fracture or dislocation. Tiny spur or calcification along the anterior margin o f the proximal. IMPRESSION: 1. No acute fracture or dislocation. If symptoms persist follow-up study in 7 to 10 days could be ob tained.
--- NOTE | 2022-11-01 14:51 | XR ---
EXAMINATION TYPE: XR shoulder complete RT DATE OF EXAM: 11/01/2022 COMPARISON: NONE HISTORY: Pain TECHNIQUE: Three views are submitted. FINDINGS: The osseous structures are intact. There is no acute fracture or dislocation. The AC joint is maint ained. IMPRESSION: 1. No acute process.
--- NOTE | 2022-11-01 14:55 | XR ---
EXAMINATION TYPE: XR wrist complete RT DATE OF EXAM: 11/01/2022 COMPARISON: NONE HISTORY: Pain TECHNIQUE: Four views submitted. FINDINGS: The osseous structures are intact. The joint spaces are preserved and there is no acute fracture or dislocation. There is a bone island involving the scaphoid. Slight contour irregularity along the la teral margin of the scaphoid may be congenital. IMPRESSION: 1. Slight contour irregularity along the lateral margin of the scaphoid could be congenital. Correlat e with point tenderness. If the patient is point tender then would recommend CT of the wrist.
== END 2022-11-01 16:20 | disposition home or self-care (01) ==
LOC: EC 11:59
DX: S62.001A Unspecified fracture of navicular [scaphoid] bone of right wrist, initial encounter for closed fracture (principal); M25.511 Pain in right shoulder; E03.9 Hypothyroidism, unspecified; F32.A Depression, unspecified; F41.9 Anxiety disorder, unspecified; Z79.890 Hormone replacement therapy; Z79.899 Other long term (current) drug therapy; Z86.16 Personal history of COVID-19; Z91.030 Bee allergy status; Z91.040 Latex allergy status; W18.30XA Fall on same level, unspecified, initial encounter; Y92.009 Unspecified place in unspecified non-institutional (private) residence as the place of occurrence of the external cause
CPT/HCPCS: 36415; 93005; 80053; 84484; 85025; 85610; 85730; 73030; 73080; 73110; 71046; 29125; 99285; 96374; 96376; J2270

== ENCOUNTER → 2022-11-09 | Outpatient (CLI) | payer OTHER ==
--- NOTE | 2022-11-10 13:39 | CT ---
EXAMINATION TYPE: CT wrist RT wo con CT DLP: 141.90 mGycm, Automated exposure control for dose reduction was used. DATE OF EXAM: 11/09/2022 5:58 PM COMPARISON: Wrist radiograph 11/01/2022 CLINICAL INDICATION:Female, 42 years old with history of RIGHT WRIST W/O; S62.001A UNSP FRACTURE OF N AVICUL; PHH, RT WRIST/NAVICULAR FX TECHNIQUE: Axial images were obtained of the right wrist . Additional coronal and sagittal reformatt ed images and soft tissue and bone window were obtained for review. 3-D reconstruction was created on a separate workstation. Contrast used: None Oral contrast used: None FINDINGS: Contour deformity of the right scaphoid without cortical step-off to suggest fracture. Scle rotic focus within the scaphoid measuring 4 mm. There is no evidence of fracture, subluxation, or dis location. No significant soft tissue swelling or joint effusion is identified. No focal muscular atr ophy or edema is identified. No radiopaque foreign body identified. IMPRESSION: Contour irregularity of the scaphoid without evidence of acute fracture. There is a suspe cted bone island within the scaphoid. If there remains concern for fracture consider MRI imaging.
== END | disposition home or self-care (01) ==
LOC: RADCTMAIN 17:37
PROVIDERS: ATTEND Orthopaedic Surgery Hand Surgery
DX: S62.001A Unspecified fracture of navicular [scaphoid] bone of right wrist, initial encounter for closed fracture (principal)

== ENCOUNTER 2022-11-21 16:36 | Emergency (ER) | payer OTHER ==
[2022-11-21] MEDS ORDERED: SODIUM CHLORIDE 0.9% 1,000 ML IV STA (17:09)
[2022-11-21] MEDS ORDERED: LORazepam 2 MG/ML INJ IV STA (17:09)
[2022-11-21 17:15] VITALS: RESP 18
--- NOTE | 2022-11-21 17:19 | ED ---
General Adult HPI - General Chief complaint: Chest Pain Stated complaint: Tachycardia Time Seen by Provider: 11/21/22 16:41 Source: patient, EMS Mode of arrival: EMS Limitations: no limitations - History of Present Illness Initial comments: Patient presents to the ED by ambulance for evaluation with her at bedside. Patient states that she was sitting on a chair in her shower about an hour ago when she suddenly developed rapid heart palpitations and difficulty taking a deep breath. Patient states that her chest felt heavy at the time. Patient states that she also felt somewhat dizzy and nauseated. Patient states that all of her symptoms have improved significantly at this time. Patient denies trauma/injury/fall, fever or chills, headache, focal numbness/weakness/neuro deficit, neck/arm/jaw/back pain, pleuritic pain, cough or cold symptoms, syncope, diaphoresis, vomiting or diarrhea, bloody or melanotic stool, dysuria or urinary symptoms, decreased urine output, leg or calf swelling or pain, or any other symptoms or complaints. - Related Data Home Medications Medication Instructions Recorded Confirmed Levothyroxine Sodium [Synthroid] 50 mcg PO QAM 11/28/20 06/25/22 Multivitamins, Thera [Multivitamin 1 tab PO DAILY 11/28/20 06/25/22 (formulary)] Pregabalin [Lyrica] 100 mg PO BID 11/09/21 06/25/22 busPIRone HCl [Buspar] 10 mg PO BID 12/01/21 06/25/22 Lidocaine 5% Patch [Lidoderm] 1 each TRANSDERM QAM PRN 01/07/22 06/25/22 DULoxetine HCL [Cymbalta] 20 mg PO QAM 02/17/22 06/25/22 Previous Rx's Medication Instructions Recorded HYDROcodone/APAP 7.5-325MG [Jasper 1 tab PO Q4HR PRN 3 Days #18 tab 11/01/22 7.5-325] Allergies Allergy/AdvReac Type Severity Reaction Status Date / Time bee venom protein (honey bee) Allergy Anaphylaxis Verified 11/01/22 12:04 latex Allergy Rash/Hives Verified 11/01/22 12:04 Review of Systems ROS Statement: Those systems with pertinent positive or pertinent negative responses have been documented in the HPI. ROS Other: All systems not noted in ROS Statement are negative. Past Medical History Past Medical History: GERD/Reflux, Hearing Disorder / Deafness, Hyperlipidemia, Sleep Apnea/CPAP/BIPAP, Thyroid Disorder Additional Past Medical History / Comment(s): COVID MARCH 2022. Hypothyroid. Vestibular Disorder. 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 CPAP use. Vertigo. Hard of hearing in right ear. History of Any Multi-Drug Resistant Organisms: None Reported Past Surgical History: Orthopedic Surgery Additional Past Surgical History / Comment(s): Ganglion cyst removed from left wrist, wisdom teeth extracted, colposcopy X2. Past Anesthesia/Blood Transfusion Reactions: No Reported Reaction, Motion Sickness Additional Past Anesthesia/Blood Transfusion Reaction / Comment(s): Vertigo. Past Psychological History: Anxiety, Depression, PTSD Smoking Status: Never smoker Past Alcohol Use History: None Reported Past Drug Use History: None Reported - Past Family History Father Family Medical History: Cancer Additional Family Medical History / Comment(s): Prostate, breast and bone cancer. Mother Family Medical History: Pulmonary Embolus General Exam Limitations: no limitations General appearance: alert Head exam: Present: normocephalic Eye exam: Present: normal appearance ENT exam: Present: mucous membranes moist Neck exam: Present: other (Trachea is in midline) Respiratory exam: Present: normal lung sounds bilaterally. Absent: respiratory distress, wheezes, rales, rhonchi, stridor, chest wall tenderness Cardiovascular Exam: Present: regular rate, normal rhythm, normal heart sounds, other (Normal radial pulses bilaterally) GI/Abdominal exam: Present: soft. Absent: distended, tenderness, guarding Extremities exam: Present: other (Negative Homans sign bilaterally). Absent: tenderness, pedal edema, calf tenderness Neurological exam: Present: alert, oriented X3. Absent: motor sensory deficit Psychiatric exam: Present: anxious Skin exam: Present: warm, dry, intact, normal color Course Vital Signs 11/21/22 11/21/22 11/21/22 16:37 18:55 20:51 Temperature 98.5 F 98.7 F Pulse Rate 96 96 101 H Respiratory 18 18 18 Rate Blood Pressure 133/83 118/88 145/85 O2 Sat by Pulse 94 L 98 97 Oximetry - Reevaluation(s) Reevaluation #1: 11/21/22 20:57 Patient states that her symptoms have completely resolved at this time. Patient remains in a sinus rhythm on the resource agent. Patient remains alert and breathing comfortably with a normal room air oxygen saturation. Patient and are aware of the patient's test results, and patient feels comfortable being discharged home with her at this time. Patient was counseled about palpitations, dyspnea and chest pain. She was clearly explained return and follow-up instructions, and she was instructed to follow up closely with her primary care provider. EKG Findings - EKG Comments: EKG Findings:: ED physician interpretation (interpreted by me): Normal sinus rhythm, ventricular rate of 89 bpm, no ectopy, normal CO and QRS intervals, normal QT interval, normal axis, no ST or T-wave abnormality Medical Decision Making - Medical Decision Making Was pt. sent in by a medical professional or institution (, PA, PLISSE MACHINE OPERATOR HELPER, urgent care, hospital, or prison...) When possible be specific @ -No Did you speak to anyone other than the patient for history (EMS, parent, family, police, friend...)? What history was obtained from this source @ -No Did you review nursing and triage notes (agree or disagree)? Why? @ -I reviewed and agree with nursing and triage notes Were old charts reviewed (outside hosp., previous admission, EMS record, old EKG, old radiological studies, urgent care reports/EKG's, prison records)? Report findings @ -No old charts were reviewed Differential Diagnosis (chest pain, altered mental status, abdominal pain women, abdominal pain men, vaginal bleeding, weakness, fever, dyspnea, syncope, headache, dizziness, GI bleed, back pain, seizure, CVA, palpatations, mental health, musculoskeletal)? @ -Differential Palpitations Ventricular arrhythmias, atrial arrhythmias, myocardial infarction, anemia, thyrotoxicosis, electrolyte imbalance, hypokalemia, pulmonary embolism, pulmonary disease, drugs, alcohol, anxiety, stress, dyspnea, asthma, COPD, chest pain, pneumothorax.... This is not meant to be an all-inclusive list. EKG interpreted by me (3pts min.). @ -As above X-rays interpreted by me (1pt min.). @ -Chest x-ray was reviewed myself and shows no acute abnormality. I agree with the radiologist's interpretation as above. CT interpreted by me (1pt min.). @ -CT angiography chest was reviewed myself and is negative for pulmonary embo lism. I agree with the radiologist's interpretation as above. U/S interpreted by me (1pt. min.). @ -None done What testing was considered but not performed or refused? (CT, X-rays, U/S, labs)? Why? @ -None What meds were considered but not given or refused? Why? @ -None Did you discuss the management of the patient with other professionals (professionals i.e. , PA, PLISSE MACHINE OPERATOR HELPER, lab, RT, psych nurse, social sciences research scientist, taffy puller, teacher, corporate compliance officer, piano case maker)? Give summary @ -No Was smoking cessation discussed for >3mins.? @ -No Was critical care preformed (if so, how long)? @ -No Were there social determinants of health that impacted care today? How? (Homelessness, low income, unemployed, alcoholism, drug addiction, transportation, low edu. Level, literacy, decrease access to med. care, [facility], rehab)? @ -No Was there de-escalation of care discussed even if they declined (Discuss DNR or withdrawal of care, Hospice)? DNR status @ -No What co-morbidities impacted this encounter? (DM, HTN, Smoking, COPD, CAD, Cancer, CVA, ARF, Chemo, Hep., AIDS, mental health diagnosis, sleep apnea, morbid obesity)? @ -None Was patient admitted / discharged? Hospital course, mention meds given and route, prescriptions, significant lab abnormalities, going to OR and other pertinent info. @ -Patient has been in a sinus rhythm on the resource agent while in the ED. Patient states that her symptoms have resolved while in the ED. Patient has had 2 negative troponins drawn over 2 hours apart. Patient's labs are fairly unr emarkable other than a mildly elevated d-dimer. Patient's CT angiography chest is negative for pulmonary embolus. I do not suspect an emergent medical condition at this time. Will discharge patient home with her at this time. Patient feels comfortable with this plan. Undiagnosed new problem with uncertain prognosis? @ -No Drug Therapy requiring intensive monitoring for toxicity (Heparin, Nitro, Insulin, Cardizem)? @ -No Were any procedures done? @ -No Diagnosis/symptom? @ -Palpitations Acute, or Chronic, or Acute on Chronic? @ -Acute Uncomplicated (without systemic symptoms) or Complicated (systemic symptoms)? @ -default Side effects of treatment? @ -No Exacerbation, Progression, or Severe Exacerbation? @ -No Poses a threat to life or bodily function? How? (Chest pain, [place], [place], pneumonia, PE, COPD, DKA, ARF, appy, cholecystitis, CVA, Diverticulitis, Homicidal, Suicidal, threat to staff... and all critical care pts) @ -No Diagnosis/symptom? @ -Chest pressure Acute, or Chronic, or Acute on Chronic? @ -Acute Uncomplicated (without systemic symptoms) or Complicated (systemic symptoms)? @ -default Side effects of treatment? @ -none Exacerbation, Progression, or Severe Exacerbation] @ -no Poses a threat to life or bodily function? @ -no Diagnosis/symptom? @ -Dyspnea Acute, or Chronic, or Acute on Chronic? @ -Acute Uncomplicated (without systemic symptoms) or Complicated (systemic symptoms)? @ -default Side effects of treatment? @ -none Exacerbation, Progression, or Severe Exacerbation] @ -no Poses a threat to life or bodily function? @ -no - Lab Data Result diagrams: 11/21/22 17:34 11/21/22 17:34 Lab Results 11/21/22 11/21/22 11/21/22 Range/Units 17:34 17:34 17:34 WBC 9.1 (3.8-10.6) k/uL RBC 4.61 (3.80-5.40) m/uL Hgb 13.9 (11.4-16.0) gm/dL Hct 40.4 (34.0-46.0) % MCV 87.6 (80.0-100.0) fL MCH 30.2 (25.0-35.0) pg MCHC 34.5 (31.0-37.0) g/dL RDW 12.4 (11.5-15.5) % Plt Count 305 (150-450) k/uL MPV 8.0 Neutrophils % 65 % Lymphocytes % 27 % Monocytes % 5 % Eosinophils % 2 % Basophils % 1 % Neutrophils # 5.9 (1.3-7.7) k/uL Lymphocytes # 2.5 (1.0-4.8) k/uL Monocytes # 0.4 (0-1.0) k/uL Eosinophils # 0.2 (0-0.7) k/uL Basophils # 0.1 (0-0.2) k/uL PT 10.3 (9.0-12.0) sec INR 1.0 (<1.2) APTT 23.8 (22.0-30.0) sec D-Dimer 1.05 H (<0.60) mg/L FEU Sodium 138 (137-145) mmol/L Potassium 3.4 L (3.5-5.1) mmol/L Chloride 106 (98-107) mmol/L Carbon Dioxide 21 L (22-30) mmol/L Anion Gap 11 mmol/L BUN 9 (7-17) mg/dL Creatinine 0.59 (0.52-1.04) mg/dL Est GFR (CKD-EPI)AfAm >90 (>60 ml/min/1.73 sqM) Est GFR (CKD-EPI)NonAf >90 (>60 ml/min/1.73 sqM) Glucose 124 H (74-99) mg/dL Calcium 9.6 (8.4-10.2) mg/dL Magnesium 1.8 (1.6-2.3) mg/dL Total Bilirubin 0.7 (0.2-1.3) mg/dL AST 29 (14-36) U/L ALT 24 (4-34) U/L Alkaline Phosphatase 79 (38-126) U/L Troponin I (0.000-0.034) ng/mL NT-Pro-B Natriuret Pep <20 pg/mL Total Protein 7.3 (6.3-8.2) g/dL Albumin 4.1 (3.5-5.0) g/dL TSH 0.810 (0.465-4.680) mIU/L Free T4 0.95 (0.78-2.19) ng/dL 11/21/22 11/21/22 Range/Units 17:34 19:51 WBC (3.8-10.6) k/uL RBC (3.80-5.40) m/uL Hgb (11.4-16.0) gm/dL Hct (34.0-46.0) % MCV (80.0-100.0) fL MCH (25.0-35.0) pg MCHC (31.0-37.0) g/dL RDW (11.5-15.5) % Plt Count (150-450) k/uL MPV Neutrophils % % Lymphocytes % % Monocytes % % Eosinophils % % Basophils % % Neutrophils # (1.3-7.7) k/uL Lymphocytes # (1.0-4.8) k/uL Monocytes # (0-1.0) k/uL Eosinophils # (0-0.7) k/uL Basophils # (0-0.2) k/uL PT (9.0-12.0) sec INR (<1.2) APTT (22.0-30.0) sec D-Dimer (<0.60) mg/L FEU Sodium (137-145) mmol/L Potassium (3.5-5.1) mmol/L Chloride (98-107) mmol/L Carbon Dioxide (22-30) mmol/L Anion Gap mmol/L BUN (7-17) mg/dL Creatinine (0.52-1.04) mg/dL Est GFR (CKD-EPI)AfAm (>60 ml/min/1.73 sqM) Est GFR (CKD-EPI)NonAf (>60 ml/min/1.73 sqM) Glucose (74-99) mg/dL Calcium (8.4-10.2) mg/dL Magnesium (1.6-2.3) mg/dL Total Bilirubin (0.2-1.3) mg/dL AST (14-36) U/L ALT (4-34) U/L Alkaline Phosphatase (38-126) U/L Troponin I <0.012 <0.012 (0.000-0.034) ng/mL NT-Pro-B Natriuret Pep pg/mL Total Protein (6.3-8.2) g/dL Albumin (3.5-5.0) g/dL TSH (0.465-4.680) mIU/L Free T4 (0.78-2.19) ng/dL - Radiology Data Chest x-ray: No acute cardiopulmonary disease/process. No significant change from prior examination. CT angiography chest with IV contrast: 1. No evidence of pulmonary embolism or acute thoracic process. 2. Hepatic steatosis. Disposition Clinical Impression: Palpitations, Dyspnea, Chest pressure Disposition: HOME SELF-CARE Condition: Stable Instructions (If sedation given, give patient instructions): Chest Pain (ED), Heart Palpitations (ED), Dyspnea (ED) Additional Instructions: Return to the ER immediately should you develop new or worsening pain, increased shortness of breath, feeling dizzy or faint, vomiting, or new or worsening sym ptoms. Follow up closely with your primary care provider. Is patient prescribed a controlled substance at d/c from ED?: No Referrals: None,Stated [Primary Care Provider] - 1-2 days Donta Elizabeth MD [STAFF PHYSICIAN] - 1-2 days Time of Disposition: 21:02
--- NOTE | 2022-11-21 17:55 | XR ---
EXAMINATION TYPE: XR chest 2V DATE OF EXAM: 11/21/2022 5:51 PM COMPARISON: Chest radiographs from 11/01/2022 TECHNIQUE: XR chest 2V Frontal and lateral views of the chest. CLINICAL INDICATION:Female, 42 years old with history of dysrhythmia; FINDINGS: Lungs/Pleura: There is no evidence of pleural effusion, focal consolidation, or pneumothorax. Elevat ion of the right hemidiaphragm redemonstrated Pulmonary vascularity: Unremarkable. Heart/mediastinum: Cardiomediastinal silhouette is unremarkable. Musculoskeletal: No acute osseous pathology. IMPRESSION: No acute cardiopulmonary disease/process. No significant change from prior examination.
[2022-11-21 17:57] LABS: Basophils # (A) 0.1 k/uL (0-0.2); Basophils % (A) 1 %; Eosinophils # (A) 0.2 k/uL (0-0.7); Eosinophils % (A) 2 %; HCT 40.4 % (34.0-46.0); HGB 13.9 gm/dL (11.4-16.0); Lymphocytes # (A) 2.5 k/uL (1.0-4.8); Lymphocytes % (A) 27 %; MCH 30.2 pg (25.0-35.0); MCHC 34.5 g/dL (31.0-37.0); MCV 87.6 fL (80.0-100.0); Monocytes # (A) 0.4 k/uL (0-1.0); Monocytes % (A) 5 %; Neutrophils # (A) 5.9 k/uL (1.3-7.7); Neutrophils % (A) 65 %; Platelet Count 305 k/uL (150-450); RBC 4.61 m/uL (3.80-5.40); RDW 12.4 % (11.5-15.5); WBC 9.1 k/uL (3.8-10.6)
[2022-11-21 18:07] LABS: ALT 24 U/L (4-34); AST 29 U/L (14-36); African American GFR (CKD) >90 (>60 ml/min/1.73 sqM); Albumin 4.1 g/dL (3.5-5.0); Alkaline Phosphatase 79 U/L (38-126); Anion Gap 11 mmol/L; Blood Urea Nitrogen 9 mg/dL (7-17); Calcium 9.6 mg/dL (8.4-10.2); Carbon Dioxide 21 mmol/L (22-30); Chloride 106 mmol/L (98-107); Glucose 124 mg/dL (74-99); Magnesium 1.8 mg/dL (1.6-2.3); Non-African American GFR(CKD) >90 (>60 ml/min/1.73 sqM); Potassium 3.4 mmol/L (3.5-5.1); Sodium 138 mmol/L (137-145); Total Bilirubin 0.7 mg/dL (0.2-1.3); Total Protein 7.3 g/dL (6.3-8.2)
[2022-11-21 18:17] LABS: NT-Pro-B-Type Natriuretic Pept <20 pg/mL
[2022-11-21 18:25] LABS: T4, Free (Free Thyroxine) 0.95 ng/dL (0.78-2.19)
[2022-11-21 18:26] LABS: Partial Thromboplastin Time 23.8 sec (22.0-30.0); Prothrombin Time 10.3 sec (9.0-12.0)
[2022-11-21 18:58] VITALS: TEMP 98.7
--- NOTE | 2022-11-21 19:45 | CT ---
EXAMINATION TYPE: CT chest angio for PE CT DLP: 341 mGycm, Automated exposure control for dose reduction was used. DATE OF EXAM: 11/21/2022 7:30 PM COMPARISON: . Chest radiograph from same day. CLINICAL INDICATION:Female, 42 years old with history of Chest pain, dyspnea, tachycardia, elevated d -dimer; Chest pain, dyspnea, tachycardia, elevated d-dimer TECHNIQUE/CONTRAST: CTA scan of the thorax is performed with IV Contrast, patient injected with 100ml mL of Isovue 370, p ulmonary embolism protocol. MIP images are created and reviewed. FINDINGS: Pulmonary Artery: There is no evidence for a filling defect within the pulmonary vasculature to sugge st acute pulmonary embolism. The pulmonary artery is of normal size. Lungs/Pleura: No evidence of focal consolidation, pleural effusion or pneumothorax. Airway: Large airways are patent. Heart: Heart is within normal limits for size.. No pericardial effusion. Vasculature: No evidence of aortic aneurysm. Mediastinum: No evidence of adenopathy. Musculoskeletal: No acute osseous abnormalities Soft Tissues: Unremarkable. Lower neck: No significant findings. Upper Abdomen: Diffuse low-attenuation to the liver parenchyma.. IMPRESSION: 1. No evidence of pulmonary embolism or acute thoracic process. 2. Hepatic steatosis.
[2022-11-21 20:51] VITALS: BP 145/85; PULSE 101
== END 2022-11-21 21:01 | disposition home or self-care (01) ==
LOC: EC 16:36
DX: R06.00 Dyspnea, unspecified (principal); R07.89 Other chest pain; R00.2 Palpitations; E03.9 Hypothyroidism, unspecified; F41.9 Anxiety disorder, unspecified; F32.A Depression, unspecified; Z91.030 Bee allergy status; Z91.040 Latex allergy status; Z86.16 Personal history of COVID-19; Z79.890 Hormone replacement therapy; Z79.899 Other long term (current) drug therapy
CPT/HCPCS: 36415; 93005; 85379; 84439; 83880; 80053; 83735; 84443; 84484; 85025; 85610; 85730; 71046; 71275; 99285; 96374; 96361; J2060; Q9967

== ENCOUNTER 2023-02-11 08:20 | Day surgery (SDC) | payer OTHER ==
[2023-02-08 15:12] VITALS: BMI 40.7
[~2023-02-11 08:20] MED LIST changes: -ONDANSETRON 4 MG/2 ML VIAL IVP PRN
[2023-02-11] MEDS ORDERED: MIDAZOLAM 2 MG/2 ML VIAL ONE (09:02)
[2023-02-11] MEDS ORDERED: fentaNYL (PF) 50 MCG/ML 2 ML AMP ONE (09:02)
[2023-02-11] MEDS ORDERED: TRIAMCINOLONE ACETONIDE 40 MG/ML 1 ML VIAL ONE (09:06)
[2023-02-11] MEDS ORDERED: ROPIVACAINE 5MG/ML 20ML VIAL ONE (09:06)
[2023-02-11 09:13] VITALS: TEMP 98.3
--- NOTE | 2023-02-11 09:43 | P.PCN ---
Date of Procedure: 02/11/23 Surgeon: Andreia Ferris Pathology: none sent Condition: stable Disposition: PACU Description of Procedure: PREOPERATIVE DIAGNOSIS: Lumbar spondylosis without myelopathy POSTOPERATIVE DIAGNOSIS: Lumbar spondylosis without myelopathy PROCEDURES : Bilateral Radiofrequency thermocoagulation L4-L5, and L5-S1 medial branch, with fluoroscopic guidance ANESTHESIA: Local with lidocaine 1% using 25-gauge needle and IV moderate conscious sedation by the anesthesia Department Physician: Andreia Ferris MD EBL: Minimal PROCEDURE INDICATION: The patient with low back pain secondary to lumbar facet arthropathy who had significant relief of pain with previous diagnostic lumbar medial branch block with Ropivacaine0.5%. PROCEDURE DESCRIPTION / TECHNIQUE: The patient was seen and identified in the preoperative area. Risks, benefits, complications, including but not limited to risk of infection ,bleeding , allergic reactions to the medications and no complete pain relief , and alternatives were discussed with the patient, the patient agreed to proceed with the procedure and signed the consent. IV was started. Vital signs remained stable throughout the procedure. Patient was taken to the OR and time out was completed. The patient was placed in the prone position on the procedure table. The lumber area was prepped and draped in the usual sterile fashion. . Vital signs were closely monitored during the procedure .IV sedation was used during the procedure to decrease patients anxiety. The target points were identified as follows: For the L5-S1 level which corresponds to the dorsal ramus of L5 the target point was at the superior medial aspect of the sacral ala on the Rt side of the spine on the AP view of fluoroscopy and for the L3, and L4 medial branches the target points were at t he connection between the transverse process and the superior articular process of L4, and L5 vertebra respectively on the Rt oblique view of fluoroscopy. skin was marked, and localized with 1% lidocaineat these points. Subsequently, an 18 [id number] radiofrequency needles with a 10-mm curved active tips were advanced guided by fluoroscopy to each of the target points mentioned above in a superior medial direction to get the active tips as parallel as possible to the medial branches tracks. AP, oblique, and lateral views of fluoroscopy were used to verify needle tips position. Each level then underwent motor testing at 2.5 Hz and 0 to 3 volt with local stimulation, but no radicular symptoms down the legs. I then injected 1 mL of lidocaine 1% in each needle before starting radiofrequency thermocoagulation at 80 degrees celsius for 90 seconds. After that I injected 1 ml of PF Ropivacaine 0.5%(3 mls) with 40 mg of Kenalog, 1 mL of this mixture was given in each needle before taking the needles out intact. Then the left side with the same levels was done in the same manner. At the end of the procedure, the skin was cleansed and bandages were applied. A copy of needle placement fluoroscopy was saved on the C-arm machine. COMPLICATIONS: No acute complications. DISPOSITION / PLANS: The patient was placed in a supine position and transferred to the recovery area in a stable condition for observation and was discharged from the recovery room after meeting discharge criteria. Home discharge instructions given to the patient by the staff. The patient was reexamined prior to discharge. The patient will schedule a follow up in the clinic in 2-4 weeks.
[2023-02-11] MEDS ORDERED: IV FLUID CONTINUATION 800 ML IV ONE (09:45)
--- NOTE | 2023-02-11 09:56 | FL ---
EXAMINATION TYPE: FL guided pain mgmt statistic DATE OF EXAM: 02/11/2023 HISTORY: Fluoroscopy time Total dose area product (DAP) in uGy*m?, mGy*cm? (or similar): 0.70022 IMPRESSION: 1. Fluoroscopy time.
[2023-02-11 10:20] VITALS: BP 136/80; PULSE 91; RESP 16
== END 2023-02-11 10:15 | disposition home or self-care (01) ==
LOC: ORPAIN 08:20
PROVIDERS: ATTEND Anesthesiology
DX: M47.816 Spondylosis without myelopathy or radiculopathy, lumbar region (principal); E78.5 Hyperlipidemia, unspecified; G47.33 Obstructive sleep apnea (adult) (pediatric); E03.9 Hypothyroidism, unspecified; K21.9 Gastro-esophageal reflux disease without esophagitis; Z79.890 Hormone replacement therapy; Z91.040 Latex allergy status; Z79.899 Other long term (current) drug therapy
CPT/HCPCS: 81025; 64635; 64636 ×2; J2250; J3301; J3010; J2795

== ENCOUNTER → 2023-02-16 | Outpatient (CLI) | payer OTHER ==
[2023-02-16 19:20] LABS: Blood Urea Nitrogen 11.3 mg/dL (9.0-27.0); C Reactive Protein 0.7 mg/dL (0.00-0.80)
[2023-02-16 20:02] LABS: Erythrocyte Sedimentation Rate 18 mm/Hr (0-20)
[2023-02-16 20:38] LABS: HCT 42.4 % (37.2-46.3); HGB 13.4 d/dL (12.0-15.0); MCH 28.8 pg (27.0-32.0); MCHC 31.6 d/dL (32.0-37.0); MCV 91.2 FL (80.0-97.0); Mean Platelet Volume 10.5 FL (9.5-12.2); NRBC Per 100 WBC 0 X 10*3/uL (0.00-0.01); Platelet Count 443 X 10*3/uL (140-440); RBC 4.65 X 10*6/uL (4.10-5.20); RDW 13.3 % (11.5-14.5); WBC 11.98 X 10*3/uL (4.50-10.00)
[2023-02-17 14:42] LABS: C-ANCA <1:20 Titer (<1:20)
== END | disposition home or self-care (01) ==
LOC: LABWHC1 09:41
PROVIDERS: ATTEND Psychiatry & Neurology Vascular Neurology
DX: G60.8 Other hereditary and idiopathic neuropathies (principal)
CPT/HCPCS: 36415; 83036; 84165; 84520; 85027; 85652; 86038; 86140; 86255; 86334; 86780

== ENCOUNTER → 2023-02-17 | Outpatient (CLI) | payer OTHER ==
[2023-02-18 09:28] LABS: Creatinine 24 Hour,Urine 1.39 g/24hr (0.80-1.80); Total Protein 24 Hour,Urine 199.5 mg/24Hr (0.0-165.0); Total Volume 24 Hour,Urine 1750 mL
== END | disposition home or self-care (01) ==
LOC: LABPRL 11:29
PROVIDERS: ATTEND Physician Assistant
DX: G60.8 Other hereditary and idiopathic neuropathies (principal)
CPT/HCPCS: 81050; 82570; 84156

== ENCOUNTER → 2023-02-28 | Outpatient (CLI) | payer OTHER ==
[2023-02-28 09:23] VITALS: BP 138/86; PULSE 100; RESP 16; TEMP 98.7
--- NOTE | 2023-02-28 13:47 | P.PAINPG ---
Objective - Vital Signs Vital signs: Intake & Output 02/27/23 02/28/23 02/28/23 18:59 06:59 18:59 Weight 104.326 kg PQRS Measure Charge Sheet Comment: A 42 yr old wheelchair bound female w at side with a history of severe and chronic R knee pain, LBP x 2 yrs secondary to lumbar DDD and spondylosis with facet arthropathy without myelopathy presents today for evaluation. Pt states she experienced 70 % pain relief since 02/14/23 s/p BL RFA L4-L5, L5-S1 procedure. Pain level is provoked at 6 /10 in intensity, constant, localized in the R knee, sore/achy in character without shooting pain. Pain is provoked by standing up from a supine position. Pain is alleviated with use of a wheelchair for ambulatory assistance, PT x 2 sessions in Fall 2021 without relief, currently in OT in 2021, physician guided home exercises 5 days weekly since 2021, heat, heating pad use, medications, topicals, repositioning, use of orthopedic bed, laying supine and rest. Interventional pain procedures completed include BL RFA L3-L5 (Jun 2022, Jan 2023), BL SI injection Patient is currently on Lyrica, Cymbalta Patient denies any side effects of the medication(s), denies excessive drowsiness or sleepiness, denies suicidal ideation and reports that the current pain medication is helping to control the pain and improve activities of daily living. Patient denies any motor or sensory deficits. Patient denies any fever or night sweats, denies any change in the bowel movements or urination. Physical Examination: -Constitutional: Cooperative. Not in acute distress . - Neurologic: Cranial nerve II to XII intact. No focal neurological deficits. - Psychatric: Alert & oriented x 3. Matching mood & appropriate affect. Judgment and insight intact. - Musculoskeletal: Cervical spine: Muscle bulk/ tone/ strength in the bilateral upper extremities normal Vertebral body tenderness to palpation over Spurling test positive Distraction test positive Facet loading test positive Thoracic spine Muscle bulk / tone/ strength in the bilateral paraspinal muscles normal Vertebral body tender to palpation over Facet loading test positive Lumbar spine: +R infrapatellar diffuse TTP Motor bulk/ tone/ strength lower extremities , thigh and legs : 5/5 Deep tendon reflexes : Normal Knee Jerk. Normal Ankle Jerk . Vertebral body tenderness to palpation over Lumbar Facet Loading Test over Straight Leg Raise: positive at 30 degrees right side/ left side Gaenslen's Test positive Sacral spine : Severe tenderness over the Sacroiliac joint: right side / left side Range of motion: Flexion of the lumbar spine <60 degrees Range of motion: Extension of the lumbar spine <20 degrees Gaenslen's Test positive Hernandez test: positive right side / left side Thigh Thrust Test Sacral Thrust Test Imaging: None on file Assessment and plan: Chronic R knee pain, LBP secondary to DJD, lumbar DDD, spondylosis with facet arthropathy without myelopathy Recommendation of x-ray of R knee M17.11 May need additional testing if indicated. PT x 6 wks and may RTC for a re evaluation. All patient questions a nswered I have spent less than 30 minutes on patient care today. Dr Zurita was available by phone for the evaluation of this patient. The time was used to review the medical records including relevant urine studies and Prescription history (MAPs), review of the available imaging, evaluation and examination of the patient, coordination of care with the medical staff and if applicable referring physicians, as well as creation of the medical record PQRS Narrative: Smoking Status Never smoker Hx Alcohol Use (MH) No Home Medications: Ambulatory Orders Levothyroxine Sodium [Synthroid] 50 mcg PO QAM 11/28/20 Multivitamins, Thera [Multivitamin (formulary)] 1 tab PO DAILY 11/28/20 Pregabalin [Lyrica] 100 mg PO BID 11/09/21 busPIRone HCl [Buspar] 10 mg PO BID 12/01/21 Lidocaine 5% Patch [Lidoderm] 1 each TRANSDERM QAM PRN 01/07/22 HYDROcodone/APAP 7.5-325MG [Grahn 7.5-325] 1 tab PO Q4HR PRN 3 Days #18 tab 11/01/22 DULoxetine HCL [Cymbalta] 60 mg PO BID 02/08/23 Controlled Substance Measures - Controlled Substance Measures Is patient prescribed a controlled substance at discharge?: No
== END ==
LOC: PNWHC3 08:37
PROVIDERS: ATTEND Specialist
DX: M17.11 Unilateral primary osteoarthritis, right knee (principal); G89.29 Other chronic pain; M51.36 Other intervertebral disc degeneration, lumbar region; M47.816 Spondylosis without myelopathy or radiculopathy, lumbar region; Z91.030 Bee allergy status; Z91.040 Latex allergy status
CPT/HCPCS: 99211

== ENCOUNTER → 2023-03-04 | Outpatient (CLI) | payer OTHER ==
[2023-03-04 16:31] LABS: T4, Free (Free Thyroxine) 0.94 ng/dL (0.80-1.80)
[2023-03-05 00:45] LABS: Albumin 4.1 g/dL (3.8-4.9); Immunoglobulin M 76.3 mg/dL (40.0-280.0); Protein, Total 7.1 g/dL (6.2-8.2)
== END | disposition home or self-care (01) ==
LOC: LABWHC1 09:03
PROVIDERS: ATTEND Internal Medicine Endocrinology, Diabetes & Metabolism
DX: E03.8 Other specified hypothyroidism (principal); G50.8 Other disorders of trigeminal nerve
CPT/HCPCS: 36415; 84165; 84439; 84443; 86334

== ENCOUNTER → 2023-03-08 | Outpatient (CLI) | payer OTHER ==
--- NOTE | 2023-03-12 00:36 | MR ---
EXAMINATION TYPE: MR knee RT wo con DATE OF EXAM: 03/08/2023 COMPARISON: None HISTORY: Right knee pain and swelling TECHNIQUE: Multiplanar, multisequence imaging of the right knee is performed without contrast. FINDINGS: Medial meniscus: Degenerative intrasubstance signal. No discrete linear tear. Medial compartment cartilage: Fibrillation and partial thickness fissuring in the medial femoral cond yle cartilage. Medial collateral ligament: Intact. Lateral meniscus: Intact. Lateral compartment cartilage: Normal. Lateral collateral ligament: Intact. Patellofemoral alignment: Normal. Patellofemoral compartment cartilage: Fibrillation and partial thickness fissuring in the patellar ca rtilage. Extensor mechanism: Normal. Anterior cruciate ligament: Intact. Posterior cruciate ligament: Intact. Bone marrow: Normal. Soft tissues: Normal. No joint effusion. Neurovascular: Normal. IMPRESSION: 1. Medial meniscus degenerative intrasubstance changes, no discrete linear tear. 2. Medial and patellofemoral compartment chondromalacia.
== END | disposition home or self-care (01) ==
LOC: RADMRIMAIN 18:34
PROVIDERS: ATTEND Specialist
DX: M17.11 Unilateral primary osteoarthritis, right knee (principal); M22.41 Chondromalacia patellae, right knee

== ENCOUNTER → 2023-04-11 | Outpatient (CLI) | payer OTHER ==
[2023-04-11 10:15] VITALS: BP 136/90; PULSE 115; RESP 16
--- NOTE | 2023-04-11 10:45 | P.PAINPG ---
PQRS Measure Charge Sheet Comment: A 42 yr old wheelchair bound female w at side with a history of severe and chronic R knee pain, LBP x 2 yrs secondary to lumbar DDD and spondylosis with facet arthropathy without myelopathy, R chondromalacia presents today for evaluation. Pain level is provoked at 6 /10 in intensity, constant, localized in the R knee, sore/achy in character without shooting pain. Pain is provoked by standing up from a supine position. Pain is alleviated with use of a wheelchair for ambulatory assistance, PT x 2 sessions in Fall 2021 without relief, currently in OT in 2021, physician guided home exercises 5 days weekly since 2021, heat, heating pad use, medications, topicals, repositioning, use of orthopedic bed, laying supine and rest. Interventional pain procedures completed include BL RFA L3-L5 (Jun 2022, Jan 2023), BL SI injection Patient is currently on Lyrica, Cymbalta Patient denies any side effects of the medication(s), denies excessive drowsiness or sleepiness, denies suicidal ideation and reports that the current pain medication is helping to control the pain and improve activities of daily living. Patient denies any motor or sensory deficits. Patient denies any fever or night sweats, denies any change in the bowel movements or urination. Physical Examination: -Constitutional: Cooperative. Not in acute distress . - Neurologic: Cranial nerve II to XII intact. No focal neurological deficits. - Psychatric: Alert & oriented x 3. Matching mood & appropriate affect. Judgment and insight intact. - Musculoskeletal: Cervical spine: Muscle bulk/ tone/ strength in the bilateral upper extremities normal Vertebral body tenderness to palpation over Spurling test positive Distraction test positive Facet loading test positive Thoracic spine Muscle bulk / tone/ strength in the bilateral paraspinal muscles normal Vertebral body tender to palpation over Facet loading test positive Lumbar spine: +R infrapatellar diffuse TTP Motor bulk/ tone/ strength lower extremities , thigh and legs : 5/5 Deep tendon reflexes : Normal Knee Jerk. Normal Ankle Jerk . Vertebral body tenderness to palpation over Lumbar Facet Loading Test over Straight Leg Raise: positive at 30 degrees right side/ left side Gaenslen's Test positive Sacral spine : Severe tenderness over the Sacroiliac joint: right side / left side Range of motion: Flexion of the lumbar spine <60 degrees Range of motion: Extension of the lumbar spine <20 degrees Gaenslen's Test positive Hernandez test: positive right side / left side Thigh Thrust Test Sacral Thrust Test Imaging: MRI of R knee from 03/08/23 reviewed Assessment and plan: Chronic R knee pain, LBP secondary to DJD, lumbar DDD, spondylosis with facet arthropathy without myelopathy, R Chondromalacia Recommendation of R intra articular injection #1. May need a series of injections for optimal pain relief. Risks, benefits of procedure discussed and patient verbalized understanding. Protocol for discontinuation/continuation of medications early procedure discussed. All patient questions answered I have spent less than 30 minutes on patient care today. Dr Zurita was avai lable by phone for the evaluation of this patient. The time was used to review the medical records including relevant urine studies and Prescription history (MAPs), review of the available imaging, evaluation and examination of the patient, coordination of care with the medical staff and if applicable referring physicians, as well as creation of the medical record - Pain Location Right Knee Non-Pharmacological Interventions: Heat, Ice, Inactivity, Physical Therapy, Position/Reposition Pharmacological Interventions: PRN Medication, Scheduled Medication, Topical Medication PQRS Narrative: Smoking Status Never smoker Hx Alcohol Use (MH) No Home Medications: Ambulatory Orders Levothyroxine Sodium [Synthroid] 50 mcg PO QAM 11/28/20 Multivitamins, Thera [Multivitamin (formulary)] 1 tab PO DAILY 11/28/20 Pregabalin [Lyrica] 100 mg PO BID 11/09/21 busPIRone HCl [Buspar] 10 mg PO BID 12/01/21 Lidocaine 5% Patch [Lidoderm] 1 each TRANSDERM QAM PRN 01/07/22 HYDROcodone/APAP 7.5-325MG [Britton 7.5-325] 1 tab PO Q4HR PRN 3 Days #18 tab 11/01/22 DULoxetine HCL [Cymbalta] 60 mg PO BID 02/08/23 Controlled Substance Measures - Controlled Substance Measures Is patient prescribed a controlled substance at discharge?: No
== END ==
LOC: PNWHC3 08:47
PROVIDERS: ATTEND Specialist
DX: M51.36 Other intervertebral disc degeneration, lumbar region (principal); M47.816 Spondylosis without myelopathy or radiculopathy, lumbar region; G89.29 Other chronic pain; M94.261 Chondromalacia, right knee; Z91.040 Latex allergy status; Z91.030 Bee allergy status
CPT/HCPCS: 99211

== ENCOUNTER 2023-04-19 06:42 | Day surgery (SDC) | payer OTHER ==
[2023-04-14 09:14] VITALS: BMI 40.7
[2023-04-19] MEDS ORDERED: LACTATED RINGERS 1,000 ML IV SCH (06:55)
[2023-04-19 07:14] LABS: Glucose,Whole Blood 130 mg/dL (70-110)
[2023-04-19 07:28] VITALS: RESP 16; TEMP 97.6
[2023-04-19] MEDS ORDERED: methylPREDNISolone ACETATE 40 MG/ML 1 ML VIAL ONE (07:56)
[2023-04-19] MEDS ORDERED: ROPIVACAINE 5MG/ML 20ML VIAL ONE (07:56)
--- NOTE | 2023-04-19 08:24 | P.PCN ---
Description of Procedure: PROCEDURE: right knee joint Intraarticular Injection under ultrasound guidance . PREPROCEDURE DIAGNOSIS: Knee Osteoarthrosis. POSTPROCEDURE DIAGNOSIS: Knee Osteoarthrosis. ANESTHESIA: Local with 1% lidocaine; EBL: none COMPLICATIONS: none Specimens removed: None Ultrasound image: Saved to patient electronic medical records. Indications for Procedure: The patient has been suffering from chronic knee pain, and inadequate pain relief after pharmacologic regimen, and knee joint injection was scheduled for the patient. Procedure and Findings: The patient was seen and examined and written informed consent was obtained after explaining the risks, benefits and alternatives of the procedure to the patient. The patient was placed in the supine position. We will are was placed under the knee The skin preparation was done with ChloraPrep 2 solution, and sterile technique was observed throughout the procedure. Using ultrasound the target point for needle entry on the lateral side identified. 5 ml of 1% Lidocaine was injected with a 25 gauge needle to achieve adequate local anesthesia of the skin and subcutaneous tissue. A 21 gauge 1.5 inch ultrasound needle was introduced through the target point from the lateral side and advanced into the joint cavity under ultrasound guidance. A negative aspiration was confirmed, 10 ml block solution containing 40 MG of Depo-Medrol and 9 ml of 0.5% preservative- free ropivacaine was injected slowly with ultrasound visualization. The needle was removed and needle puncture site was appropriately cleaned, and covered with a bandage. Disposition : The patient tolerated the procedure very well. No complication. Discharged home in stable condition.
[2023-04-19 08:41] VITALS: BP 88/63; PULSE 99
== END 2023-04-19 08:47 | disposition home or self-care (01) ==
LOC: ORPAIN 06:42
PROVIDERS: ATTEND Pain Medicine Interventional Pain Medicine
DX: M17.11 Unilateral primary osteoarthritis, right knee (principal)
CPT/HCPCS: 81025; 20610; J1030; J2795

== ENCOUNTER → 2023-05-16 | Outpatient (CLI) | payer OTHER ==
[2023-05-16 10:10] VITALS: BP 132/82; PULSE 97; RESP 15; TEMP 98.4
--- NOTE | 2023-05-16 15:02 | P.PAINPG ---
PQRS Measure Charge Sheet Comment: A 43 yr old wheelchair bound female with a history of severe and chronic R knee pain x 1 yr, LBP x 2 yrs secondary to lumbar DDD and spondylosis with facet arthropathy without myelopathy, R chondromalacia presents today for evaluation s/p R intra articular injection #1. Pt states she experienced 50 % pain relief x 1 wks s/p procedure. Pain level is provoked at 6 /10 in intensity, constant, localized in the R knee, sore/achy in character without shooting pain. Pain is provoked by standing up from a supine position. Pain is alleviated with use of a wheelchair for ambulatory assistance, PT x 2 sessions in Fall 2021 without relief, currently in OT in 2021, physician guided home exercises 5 days weekly s nicolas 2021, heat, heating pad use, medications, topicals, repositioning, use of orthopedic bed, laying supine and rest. Interventional pain procedures completed include BL RFA L3-L5 (Jun 2022, Feb 11), BL SI injection, R intra articular injection x1 Patient is currently on Baclofen, Lyrica, Cymbalta Patient denies any side effects of the medication(s), denies excessive drowsiness or sleepiness, denies suicidal ideation and reports that the current pain medication is helping to control the pain and improve activities of daily living. Patient denies any motor or sensory deficits. Patient denies any fever or night sweats, denies any change in the bowel movements or urination. Physical Examination: -Constitutional: Cooperative. Not in acute distress . - Neurologic: Cranial nerve II to XII intact. No focal neurological deficits. - Psychatric: Alert & oriented x 3. Matching mood & appropriate affect. Judgment and insight intact. - Musculoskeletal: Cervical spine: Muscle bulk/ tone/ strength in the bilateral upper extremities normal Vertebral body tenderness to palpation over Spurling test positive Distraction test positive Facet loading test positive Thoracic spine Muscle bulk / tone/ strength in the bilateral paraspinal muscles normal Vertebral body tender to palpation over Facet loading test positive Lumbar spine: Motor bulk/ tone/ strength lower extremities , thigh and legs : 5/5 Deep tendon reflexes : Normal Knee Jerk. Normal Ankle Jerk . Vertebral body tenderness to palpation over L4 Lumbar Facet Loading Test over Straight Leg Raise: positive at 30 degrees right side/ left side Gaenslen's Test positive Sacral spine : Severe tenderness over the Sacroiliac joint: right side / left side Range of motion: Flexion of the lumbar spine <60 degrees Range of motion: Extension of the lumbar spine <20 degrees Gaenslen's Test positive Hernandez test: positive right side / left side Thigh Thrust Test Sacral Thrust Test Imaging: MRI of R knee from 03/08/23 reviewed Assessment and plan: Chronic R knee pain, LBP secondary to DJD, lumbar DDD, spondylosis with facet arthropathy without myelopathy, R Chondromalacia Recommendation of R TFESI L4-L:5 #1. May need a series of injections for optimal pain relief. Risks, benefits of procedure discussed and patient verbalized understanding. Protocol for discontinuation/continuation of medic ations early procedure discussed. All patient questions answered I have spent less than 30 minutes on patient care today. Dr Zurita was available by phone for the evaluation of this patient. The time was used to review the medical records including relevant urine studies and Prescription history (MAPs), review of the available imaging, evaluation and examination of the patient, coordination of care with the medical staff and if applicable referring physicians, as well as creation of the medical record PQRS Narrative: Smoking Status Never smoker Hx Alcohol Use (MH) No Home Medications: Ambulatory Orders Pregabalin [Lyrica] 100 mg PO BID 11/09/21 Lidocaine 5% Patch [Lidoderm] 1 each TRANSDERM QAM PRN 01/07/22 DULoxetine HCL [Cymbalta] 60 mg PO BID 02/08/23 Baclofen 10 mg PO BID 04/14/23 Levothyroxine Sodium 25 mcg PO QAM 04/14/23 Controlled Substance Measures - Controlled Substance Measures Is patient prescribed a controlled substance at discharge?: No
== END ==
LOC: PNWHC3 09:50
PROVIDERS: ATTEND Specialist
DX: M51.36 Other intervertebral disc degeneration, lumbar region (principal); M51.26 Other intervertebral disc displacement, lumbar region; G89.29 Other chronic pain; M47.816 Spondylosis without myelopathy or radiculopathy, lumbar region; M94.261 Chondromalacia, right knee; F12.90 Cannabis use, unspecified, uncomplicated; Z91.030 Bee allergy status; Z91.040 Latex allergy status
CPT/HCPCS: 99211

== ENCOUNTER → 2023-05-19 | Outpatient (CLI) | payer OTHER ==
--- NOTE | 2023-05-19 11:26 | US ---
LOWER EXTREMITY VENOUS INSUFFICIENCY CLINICAL INDICATION: Female, 43 years old with history of I87.2 VENOUS INSUFFICIENCY (CHRONIC) M21.37 1 M51.9; Leg swelling, check for insufficiency SIDE PERFORMED: Bilateral 1) Color flow is present and patency is documented in the following vessels. No DVT or SVT is noted . Common Femoral Vein Deep Femoral Vein Femoral Vein Popliteal Vein Proximal Calf Veins Greater Saph Vein Upper Small Saph Vein 2) There is venous reflux noted at the following venous levels: - Left EIV - Left CFV IMPRESSION: 1. No sonographic evidence for DVT within the bilateral lower extremities imaged from the groin to th e upper calves. 2. Venous reflux identified within the left lower extremity at the level of the external iliac vein a nd common femoral vein.
== END | disposition home or self-care (01) ==
LOC: RADUSWWP 10:18
PROVIDERS: ATTEND Psychiatry & Neurology Neurology
DX: I87.2 Venous insufficiency (chronic) (peripheral) (principal); M21.371 Foot drop, right foot; M51.9 Unspecified thoracic, thoracolumbar and lumbosacral intervertebral disc disorder
CPT/HCPCS: 93970

== ENCOUNTER → 2023-11-16 | Outpatient (CLI) | payer OTHER ==
--- NOTE | 2023-11-16 14:08 | P.PAINPG ---
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 She underwent a BL RFA L4-L5, L5-S1 in Jun 2022 where she experienced 70% pain relief x 8 mo s/p procedure. Pain level is provoked at 6 /10 in intensity, constant, predominantly axial, localized in the lumbar spine, sore/achy in character w occasional shooting towards the buttocks, hips and LEs. Pain is provoked by standing up from a supine position. Pain is alleviated with use of a wheelchair for ambulatory assistance, PT x 2 sessions in Fall 2021 without relief, currently in OT in 2021, physician guided home exercises 5 days weekly since 2021, heat, heating pad use, medications, topicals, repositioning, use of orthopedic bed, laying supine and rest. Oswestry axial pain score of 18. Interventional pain procedures completed include BL RFA L3-L5 (Jun 2022, Jan 2023), BL SI injection, R intra articular injection x1 Patient is currently on Baclofen/ Zanaflex, Lyrica, Cymbalta Patient denies any side effects of the medication(s), denies excessive drowsiness or sleepiness, denies suicidal ideation and reports that the current pain medication is helping to control the pain and improve activities of daily living. Patient denies any motor or sensory deficits. Patient denies any fever or night sweats, denies any change in the bowel movements or urination. Physical Examination: -Constitutional: Cooperative. Not in acute distress . - Neurologic: Cranial nerve II to XII intact. No focal neurological deficits. - Psychatric: Alert & oriented x 3. Matching mood & appropriate affect. Judgment and insight intact. - Musculoskeletal: Cervical spine: Muscle bulk/ tone/ strength in the bilateral upper extremities normal Vertebral body tenderness to palpation over Spurling test positive Distraction test positive Facet loading test positive Thoracic spine Muscle bulk / tone/ strength in the bilateral paraspinal muscles normal Vertebral body tender to palpation over Facet loading test positive Lumbar spine: Motor bulk/ tone/ strength lower extremities , thigh and legs : 5/5 Deep tendon reflexes : Normal Knee Jerk. Normal Ankle Jerk . Vertebral body tenderness to palpation over L4 Lumbar Facet Loading Test BL L4-L5, L5-S1 Straight Leg Raise: positive at 30 degrees right side/ left side Gaenslen's Test positive Sacral spine : Severe tenderness over the Sacroiliac joint: right side / left side Range of motion: Flexion of the lumbar spine <60 degrees Range of motion: Extension of the lumbar spine <20 degrees Gaenslen's Test positive Hernandez test: positive right side / left side Thigh Thrust Test Sacral Thrust Test Imaging: MRI of R knee from 03/08/23 reviewed MRI non contrast of the lumbar spine from 01/31/23 reviewed MRI non contrast of the cervical spine from 07/11/23 reviewed MRI with/ without contrast of the brain from 05/09/23 reviewed Assessment and plan: Chronic R knee pain, LBP secondary to DJD, lumbar DDD, spondylosis with facet arthropathy without myelopathy, R Chondromalacia Recommendation of BL RFA L4-L5, L5-S1. Exhibited optimal pain relief w prior BL RFA procedure from Jun 2022. Risks, benefits of procedure discussed and patient verbalized understanding. Protocol for discontinuation/continuation of medications early procedure discussed. Minimal anesthesia including Fentanyl and Versed if clinically indicated. All patient questions answered I have spent less than 30 minutes on patient care today. Dr Zurita was available by phone for the evaluation of this patient. The time was used to review the medical records including relevant urine studies and Prescription history (MAPs), review of the available imaging, evaluation and examination of the patient, coordination of care with the medical staff and if applicable referring physicians, as well as creation of the medical record PQRS Narrative: Smoking Status Never smoker Hx Alcohol Use (MH) No Home Medications: Ambulatory Orders Pregabalin [Lyrica] 100 mg PO BID 11/09/21 Lidocaine 5% Patch [Lidoderm] 1 each TRANSDERM QAM PRN 01/07/22 DULoxetine HCL [Cymbalta] 60 mg PO BID 02/08/23 Baclofen 10 mg PO BID 04/14/23 Levothyroxine Sodium 25 mcg PO QAM 04/14/23 Controlled Substance Measures - Controlled Substance Measures Is patient prescribed a controlled substance at discharge?: No
== END ==
LOC: PNWHC3 10:04
PROVIDERS: ATTEND Anesthesiology
DX: M51.37 Other intervertebral disc degeneration, lumbosacral region (principal); M47.817 Spondylosis without myelopathy or radiculopathy, lumbosacral region; M51.27 Other intervertebral disc displacement, lumbosacral region; M25.561 Pain in right knee; M94.20 Chondromalacia, unspecified site; G89.29 Other chronic pain; Z91.030 Bee allergy status; Z91.040 Latex allergy status
CPT/HCPCS: 99211

== ENCOUNTER 2023-11-17 08:19 | Day surgery (SDC) | payer OTHER ==
[2023-11-17 08:49] VITALS: TEMP 97
[2023-11-17] MEDS: LACTATED RINGERS 1,000 ML IV SCH (08:57)
[2023-11-17] MEDS: IV FLUID CONTINUATION 1,000 ML IV ONE (08:57)
[2023-11-17 09:00] LABS: Glucose,Whole Blood 134 mg/dL (70-110)
[2023-11-17] MEDS ORDERED: MIDAZOLAM 2 MG/2 ML VIAL ONE (09:42)
[2023-11-17] MEDS ORDERED: methylPREDNISolone ACETATE 40 MG/ML 1 ML VIAL ONE (09:42)
[2023-11-17] MEDS ORDERED: fentaNYL (PF) 50 MCG/ML 2 ML AMP ONE (09:42)
[2023-11-17] MEDS ORDERED: ROPIVACAINE 5MG/ML 20ML VIAL ONE (09:42)
--- NOTE | 2023-11-17 10:15 | P.PCN ---
Date of Procedure: 11/17/23 Procedure(s) Performed: PREOPERATIVE DIAGNOSIS: 1-Lumbar Spondylosis with Facet Arthropathy without myelopathy. 2- Lumber degenerative disc disease. POSTOPERATIVE DIAGNOSIS: 1- Lumbar Spondylosis with Facet Arthropathy without myelopathy. 2- Lumber degenerative disc disease. PROCEDURES : Bilateral Radiofrequency thermocoagulation, L3 , L4 , and L5 medial branch, with fluoroscopic guidance (fluoroscopy images available in the radiology department) ( to denervate the facet joint at bilateral L4-5 ,and L5-S1 levels ). ANESTHESIA: Moderate sedation with intravenous versed 4 mg and fentaneyl 100 mcg, and local infiltration with Ropivacaine 0.5 % . Patient start time 0 942 , end time 1012 EBL: Minimal PROCEDURE INDICATION: The patient with low back pain secondary to lumbar facet arthropathy who had more than 50% relief of her pain with previous diagnostic lumbar medial branch block with bupivacaine. PROCEDURE DESCRIPTION / TECHNIQUE: The patient was seen and identified in the preoperative area. Risks, benefits, complications, including but not limited to risk of infection ,bleeding , allergic reactions to the medications and no complete pain releife , and alternatives were discussed with the patient, the patient agreed to proceed with the procedure and signed the consent. IV was started. Vital signs remained stable throughout the procedure. Patient was taken to the OR and time out was completed. The patient was placed in the prone position on the procedure table. The lumber area was prepped and draped in the usual sterile fashion. . Vital signs were closely monitored during the procedure .IV sedation was used during the procedure to decrease patients anxiety. Using AP and then oblique fluoroscopy, the ``eye of the Álvaro dog corresponding to the connection between the superior and transverse articular processes of right L3, L4, and L5 were identified, marked, and localized with 1% lidocaine. Subsequently, a 18 [id number] ( Venom ) radiofrequency cannula with a 10-mm active tip was advanced guided by fluoroscopy to each of the``eyes of the Álvaro dog at right L3, L4, and L5. Each site then underwent sensory testing at 50 Hz and 0 to 1 volt and motor testing at 2.5 Hz and 0 to 3 volt with local stimulation, but no radicular symptoms down the legs. Thereafter each sites underwent radiofrequency thermocoagulation at 80 degrees celsius for 90 seconds after injecting 0.5 ml of PF Ropivacaine 1ml, then after the thermocoagulation done , 1 ml of the block solution containing Depo-Medrol 20 mg and 3 ml of Ropivacaine 0.5% was injected at the right L3 , L4 , and L5 , levels after negative aspiration of CSF and blood and with no paresthesias. Cannulas were retracted while injecting lidocaine 1% until the needle is out. The same procedure was repeated at the level of Left L3, L4, and L5 levels. At the end of the procedure, the skin was cleansed and bandages were applied. COMPLICATIONS: No acute complications. DISPOSITION / PLANS: The patient was placed in a supine position and trans ferred to the recovery area in a stable condition for observation and was discharged from the recovery room after meeting discharge criteria. Home discharge instructions given to the patient by the staff. The patient was reexamined prior to discharge. The patient will schedule a follow up in the clinic in 2-4 weeks.
--- NOTE | 2023-11-17 10:20 | FL ---
EXAMINATION TYPE: FL guided pain mgmt statistic DATE OF EXAM: 11/17/2023 HISTORY: Fluoroscopy time Total dose area product (DAP) in uGy*m?, mGy*cm? (or similar): 0.02631 IMPRESSION: 1. Fluoroscopy time.
[2023-11-17] MEDS: IV FLUID CONTINUATION 600 ML IV ONE (10:21)
[2023-11-17] MEDS: ONDANSETRON 4 MG/2 ML VIAL IVP PRN (10:25)
[2023-11-17 10:38] VITALS: BP 144/85; PULSE 93; RESP 18
== END 2023-11-17 11:04 | disposition home or self-care (01) ==
LOC: ORPAIN 08:19
PROVIDERS: ATTEND Specialist
DX: M47.816 Spondylosis without myelopathy or radiculopathy, lumbar region (principal); E11.9 Type 2 diabetes mellitus without complications; Z79.899 Other long term (current) drug therapy; Z91.030 Bee allergy status; Z91.040 Latex allergy status
CPT/HCPCS: 64636 ×2; 99152; 99153; 81025; 64635; J2250; J2405; J3010; J2795; J1010

== ENCOUNTER → 2023-12-08 | Outpatient (CLI) | payer OTHER | LOC: PNWHC3 10:00 | PROVIDERS: ATTEND Specialist | DX: M47.816 Spondylosis without myelopathy or radiculopathy, lumbar region | CPT/HCPCS: 99211 ==

== ENCOUNTER 2023-12-13 11:42 | Day surgery (SDC) | payer OTHER ==
[2023-12-13] MEDS ORDERED: ROPIVACAINE 5MG/ML 20ML VIAL ONE (12:33)
[2023-12-13] MEDS ORDERED: fentaNYL (PF) 50 MCG/ML 2 ML AMP ONE (12:33)
[2023-12-13] MEDS ORDERED: MIDAZOLAM 2 MG/2 ML VIAL ONE (12:33)
--- NOTE | 2024-01-24 18:20 | FL ---
EXAMINATION TYPE: FL guided pain mgmt statistic DATE OF EXAM: 12/27/2023 4:27 PM COMPARISON: Pre Operative Images if available both CT/MRI or plain film CLINICAL INDICATION: Female, 43 years old with history of JOANN ILEOLINGAL INJ; TECHNIQUE: FL guided pain mgmt statistic, multiple fluoroscopic images provided for procedure. Total fluoroscopy time: 6 seconds Total submitted images to PACS: 5 DAP: 0.2860 mGym2 Gycm2 uGym2 cGycm2 or equivalent. FINDINGS: Fluoroscopic images during injection for pain management demonstrate multilevel degeneration changes throughout the spine. No evidence for fracture. No acute process identified. IMPRESSION: 1. No evidence for intraoperative complication. 2. Please see the operative/procedural note for further details. [facility], , 01/24/2024 6:18 PM
== END 2023-12-13 13:28 ==
LOC: ORPAIN 11:42
PROVIDERS: ATTEND Hospitalist
DX: M79.18 Myalgia, other site (principal); Z91.040 Latex allergy status; Z91.030 Bee allergy status
CPT/HCPCS: 64425; 81025

== ENCOUNTER → 2024-01-04 | Outpatient (CLI) | payer OTHER ==
[2024-01-04 10:32] VITALS: BP 117/81; PULSE 111; RESP 19
--- NOTE | 2024-01-11 11:30 | P.PAINPG ---
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 Pt states she experienced 75% pain relief x 3 wks s/p procedure. Pain level is provoked at 3 /10 in intensity, constant, predominantly axial, localized in the lumbar spine, sore/achy in character w occasional shooting towards the buttocks, hips and LEs. Pain is provoked by standing up from a supine position. Pain is alleviated with use of a wheelchair for ambulatory assistance, PT x 2 sessions in Fall 2021 without relief, currently in OT in 2021, physician guided home exercises 5 days weekly since 2021, heat, heating pad use, medications, topicals, repositioning, use of orthopedic bed, laying supine and rest. Interventional pain procedures completed include BL RFA L3-L5 (Jun 2022, Jan 2023, Oct 2023), BL SI injection, R intra articular injection x1, BL iliolumbar x1 (Nov 2023) Patient is currently on Baclofen/ Zanaflex, Lyrica, Cymbalta Patient denies any side effects of the medication(s), denies excessive drowsiness or sleepiness, denies suicidal ideation and reports that the current pain medication is helping to control the pain and improve activities of daily living. Patient denies any motor or sensory deficits. Patient denies any fever or night sweats, denies any change in the bowel movements or urination. Physical Examination: -Constitutional: Cooperative. Not in acute distress . - Neurologic: Cranial nerve II to XII intact. No focal neurological deficits. - Psychatric: Alert & oriented x 3. Matching mood & appropriate affect. Judgment and insight intact. - Musculoskeletal: Cervical spine: Muscle bulk/ tone/ strength in the bilateral upper extremities normal Vertebral body tenderness to palpation over Spurling test positive Distraction test positive Facet loading test positive Thoracic spine Muscle bulk / tone/ strength in the bilateral paraspinal muscles normal Vertebral body tender to palpation over Facet loading test positive Lumbar spine: Motor bulk/ tone/ strength lower extremities , thigh and legs : 5/5 Deep tendon reflexes : Normal Knee Jerk. Normal Ankle Jerk . Vertebral body tenderness to palpation over L4 Lumbar Facet Loading Test BL L4-L5, L5-S1 Straight Leg Raise: positive at 30 degrees right side/ left side Gaenslen's Test positive Sacral spine : Severe tenderness over the Sacroiliac joint: right side / left side Range of motion: Flexion of the lumbar spine <60 degrees Range of motion: Extension of the lumbar spine <20 degrees Gaenslen's Test positive Hernandez test: positive right side / left side Thigh Thrust Test Sacral Thrust Test Imaging: MRI of R knee from 03/08/23 reviewed MRI non contrast of the lumbar spine from 01/31/23 reviewed MRI non contrast of the cervical spine from 07/11/23 reviewed MRI with/ without contrast of the brain from 05/09/23 reviewed Assessment and plan: Chronic R knee pain, LBP secondary to DJD, lumbar DDD, spondylosis with facet arthropathy without myelopathy, R Chondromalacia Will manage residual pain and may RTC on an as needed basis. All patient questions answered I have spent less than 30 minutes on patient care today. Dr Zurita was available by phone for the evaluation of this patient. The time was used to review the medical records including relevant urine studies and Prescription history (MAPs), review of the available imaging, evaluation and examination of the patient, coordination of care with the medical staff and if applicable referring physicians, as well as creation of the medical record - Pain Location Lower Back Pharmacological Interventions: Epidural PQRS Narrative: Smoking Status Never smoker Hx Alcohol Use (MH) No Home Medications: Ambulatory Orders Pregabalin [Lyrica] 100 mg PO BID 11/09/21 Lidocaine 5% Patch [Lidoderm] 1 each TRANSDERM QAM PRN 01/07/22 DULoxetine HCL [Cymbalta] 60 mg PO BID 02/08/23 Baclofen 10 mg PO BID 04/14/23 Levothyroxine Sodium 25 mcg PO QAM 04/14/23 Doxycycline [Vibramycin] 100 mg PO DAILY 11/16/23 Semaglutide [Ozempic] 0.25 mg SQ WE 11/16/23 tiZANidine [Zanaflex] 2 mg PO DAILY 11/16/23 HYDROcodone/APAP 7.5-325MG [[place] 7.5-325] 1 tab PO Q4H PRN 3 Days #15 tab 11/17/23 Controlled Substance Measures - Controlled Substance Measures Is patient prescribed a controlled substance at discharge?: No
== END ==
LOC: PNWHC3 09:51
PROVIDERS: ATTEND Specialist
DX: M54.16 Radiculopathy, lumbar region
CPT/HCPCS: 99211

== ENCOUNTER → 2024-05-28 | Outpatient (CLI) | payer OTHER ==
[2024-05-28 09:11] VITALS: BP 135/73; PULSE 80; RESP 16
--- NOTE | 2024-05-28 16:16 | P.PAINPG ---
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 Pain level is provoked at 9 /10 in intensity, constant, predominantly axial, localized in the lumbar spine, sore/achy in character w occasional shooting towards the buttocks. Pain is provoked by sitting for periods > 20 min. Pain is alleviated with use of a wheelchair for ambulatory assistance, PT x 2 sessions in Fall 2021 without relief, OT in 2021, physician guided home exercises 5 days weekly since 2021, heat, heating pad use, medications, topicals, repositioning, use of orthopedic bed, laying supine and rest. Interventional pain procedures completed include BL RFA L3-L5 (Jun 2022, Jan 2023, Oct 2023), BL SI injection, R intra articular injection x1, BL iliolumbar x1 (Nov 2023) Patient is currently on Tyl, Ibu, Arnica Gel Patient denies any side effects of the medication(s), denies excessive drowsiness or sleepiness, denies suicidal ideation and reports that the current pain medication is helping to control the pain and improve activities of daily living. Patient denies any motor or sensory deficits. Patient denies any fever or night sweats, denies any change in the bowel movements or urination. Physical Examination: -Constitutional: Cooperative. Not in acute distress . - Neurologic: Cranial nerve II to XII intact. No focal neurological deficits. - Psychatric: Alert & oriented x 3. Matching mood & appropriate affect. Judgment and insight intact. - Musculoskeletal: Cervical spine: Muscle bulk/ tone/ strength in the bilateral upper extremities normal Vertebral body tenderness to palpation over Spurling test positive Distraction test positive Facet loading test positive Thoracic spine Muscle bulk / tone/ strength in the bilateral paraspinal muscles normal Vertebral body tender to palpation over Facet loading test positive Lumbar spine: Motor bulk/ tone/ strength lower extremities , thigh and legs : 5/5 Deep tendon reflexes : Normal Knee Jerk. Normal Ankle Jerk . Vertebral body tenderness to palpation over L4 Lumbar Facet Loading Test BL L4-L5, L5-S1 Straight Leg Raise: positive at 30 degrees right side/ left side Gaenslen's Test positive Sacral spine : Severe tenderness over the Sacroiliac joint: right side / left side Range of motion: Flexion of the lumbar spine <60 degrees Range of motion: Extension of the lumbar spine <20 degrees Gaenslen's Test positive BL Hernandez test: positive right side / left side Thigh Thrust Test Sacral Thrust Test BL positive Imaging: MRI non contrast brain from 05/02/24 reviewed MRI of R knee from 03/08/23 reviewed MRI non contrast of the lumbar spine from 01/31/23 reviewed MRI non contrast of the cervical spine from 07/11/23 reviewed MRI with/ without contrast of the brain from 05/09/23 reviewed Assessment and plan: Chronic R knee pain, LBP secondary to radiculopathy, spondylosis with facet arthropathy without myelopathy, R Chondromalacia, BL Sacroiliitis Recommendation of BL SI injection. Risks, benefits of procedure discussed and pt verbalized understanding. All patient questions answered I have spent less than 30 minutes on patient care today. Dr Zurita was available by phone for the evaluation of this patient. The time was used to review the medical records including relevant urine studies and Prescription history (MAPs), review of the available imaging, evaluation and examination of the patient, coordination of care with the medical staff and if applicable referring physicians, as well as creation of the medical record - Pain Location Bilateral Lower Back Non-Pharmacological Interventions: Heat, Ice, Inactivity, Massage, Physical Therapy, Position/Reposition Pharmacological Interventions: Block, Epidural, PRN Medication, Topical Medication PQRS Narrative: Smoking Status Never smoker Hx Alcohol Use (MH) No Home Medications: Ambulatory Orders Pregabalin [Lyrica] 100 mg PO BID 11/09/21 Lidocaine 5% Patch [Lidoderm] 1 each TRANSDERM QAM PRN 01/07/22 DULoxetine HCL [Cymbalta] 60 mg PO BID 02/08/23 Baclofen 10 mg PO BID 04/14/23 Levothyroxine Sodium 25 mcg PO QAM 04/14/23 Doxycycline [Vibramycin] 100 mg PO DAILY 11/16/23 Semaglutide [Ozempic] 0.25 mg SQ WE 11/16/23 tiZANidine [Zanaflex] 2 mg PO DAILY 11/16/23 HYDROcodone/APAP 7.5-325MG [[place] 7.5-325] 1 tab PO Q4H PRN 3 Days #15 tab 11/17/23 Controlled Substance Measures - Controlled Substance Measures Is patient prescribed a controlled substance at discharge?: No
== END ==
LOC: PNWHC3 08:36
PROVIDERS: ATTEND Specialist
DX: M47.26 Other spondylosis with radiculopathy, lumbar region (principal); M94.261 Chondromalacia, right knee; M46.1 Sacroiliitis, not elsewhere classified; G89.29 Other chronic pain; F12.90 Cannabis use, unspecified, uncomplicated; Z91.040 Latex allergy status; Z91.030 Bee allergy status
CPT/HCPCS: 99211

== ENCOUNTER → 2024-07-12 | Outpatient (CLI) | payer OTHER ==
[2024-07-12 13:17] VITALS: BP 141/94; PULSE 90; RESP 16; TEMP 97.5
--- NOTE | 2024-07-12 14:10 | P.PAINPG ---
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 Pt states she experienced 80 % pain relief x 1 mo s/p procedure. She also undewent a BL RFA L4-L5/ L5-S1 on 11/17/23 where she experienced 60% pain relief x 7 mo s/p procedure. Pain level is provoked at 6 /10 in intensity, constant, predominantly axial, localized in the lumbar spine, sore/achy in character w occasional shooting towards the back of the LEs. Pain is provoked by lifting. Pain is alleviated with use of a whee lchair for ambulatory assistance, PT x 4 wks which started in late May 2024, OT in 2021, physician guided home exercises 5 days weekly since 2021, heat, heating pad use, medications, topicals, repositioning, use of orthopedic bed, laying supine and rest. Interventional pain procedures completed include BL RFA L3-L5 (Jun 2022, Jan 2023, Oct 2023), BL SI injection, R intra articular injection x1, BL iliolumbar x1 (Nov 2023) Patient is currently on Tyl, Ibu, Arnica Gel Patient denies any side effects of the medication(s), denies excessive drowsiness or sleepiness, denies suicidal ideation and reports that the current pain medication is helping to control the pain and improve activities of daily living. Patient denies any motor or sensory deficits. Patient denies any fever or night sweats, denies any change in the bowel movements or urination. Physical Examination: -Constitutional: Cooperative. Not in acute distress . - Neurologic: Cranial nerve II to XII intact. No focal neurological de ficits. - Psychatric: Alert & oriented x 3. Matching mood & appropriate affect. Judgment and insight intact. - Musculoskeletal: Cervical spine: Muscle bulk/ tone/ strength in the bilateral upper extremities normal Vertebral body tenderness to palpation over Spurling test positive Distraction test positive Facet loading test positive Thoracic spine Muscle bulk / tone/ strength in the bilateral paraspinal muscles normal Vertebral body tender to palpation over Facet loading test positive Lumbar spine: Motor bulk/ tone/ strength lower extremities , thigh and legs : 5/5 Deep tendon reflexes : Normal Knee Jerk. Normal Ankle Jerk . Vertebral body tenderness to palpation over L4 Lumbar Facet Loading Test BL L4-L5, L5-S1 Straight Leg Raise: positive at 30 degrees right side/ left side Gaenslen's Test positive Sacral spine : Severe tenderness over the Sacroiliac joint: right side / left side Range of motion: Flexion of the lumbar spine <60 degrees Range of motion: Extension of the lumbar spine <20 degrees Gaenslen's Test positive BL Hernandez test: positive right side / left side Thigh Thrust Test Sacral Thrust Test BL positive Imaging: MRI non contrast brain from 05/02/24 reviewed MRI of R knee from 03/08/23 reviewed MRI non contrast of the lumbar spine from 01/31/23 reviewed MRI non contrast of the cervical spine from 07/11/23 reviewed MRI with/ without contrast of the brain from 05/09/23 reviewed Assessment and plan: Chronic R knee pain, LBP secondary to radiculopathy, spondylosis with facet arthropathy without myelopathy, R Chondromalacia, BL Sacroiliitis Recommendation of BL RFA L4-L5, L5-S1. Risks, benefits of procedure discussed and pt verbalized understanding. Minimal anesthesia including Fentanyl and Versed if clinically indicated. All patient questions answered I have spent less than 30 minutes on patient care today. Dr Zurita was available by phone for the evaluation of this patient. The time was used to review the medical records including relevant urine studies and Prescription history (MAPs), review of the available imaging, evaluation and examination of the patient, coordination of care with the medical staff and if applicable referring physicians, as well as creation of the medical record PQRS Narrative: Smoking Status Never smoker Hx Alcohol Use (MH) No Home Medications: Ambulatory Orders Pregabalin [Lyrica] 200 mg PO BID 11/09/21 Lidocaine 5% Patch [Lidoderm] 1 each TRANSDERM QAM PRN 01/07/22 DULoxetine HCL [Cymbalta] 60 mg PO BID 02/08/23 Baclofen 10 mg PO BID 04/14/23 Levothyroxine Sodium 25 mcg PO QAM 04/14/23 Semaglutide [Ozempic] 0.25 mg SQ WE 11/16/23 tiZANidine [Zanaflex] 2 mg PO DAILY 11/16/23 Controlled Substance Measures - Controlled Substance Measures Is patient prescribed a controlled substance at discharge?: No
== END ==
LOC: PNWHC3 10:26
PROVIDERS: ATTEND Specialist
DX: M47.26 Other spondylosis with radiculopathy, lumbar region (principal); M46.1 Sacroiliitis, not elsewhere classified; G89.29 Other chronic pain; M94.261 Chondromalacia, right knee; F12.90 Cannabis use, unspecified, uncomplicated; Z91.030 Bee allergy status; Z88.5 Allergy status to narcotic agent; Z91.040 Latex allergy status
CPT/HCPCS: 99211

== ENCOUNTER 2024-07-24 11:09 | Day surgery (SDC) | payer OTHER ==
[2024-07-24] MEDS: IV FLUID CONTINUATION 1,000 ML IV ONE ×3 (11:41→12:33)
[2024-07-24] MEDS: LACTATED RINGERS 1,000 ML IV SCH (11:42)
[2024-07-24 11:44] LABS: Glucose,Whole Blood 95 mg/dL (70-110)
[2024-07-24 11:45] VITALS: TEMP 97.7
[2024-07-24] MEDS ORDERED: ROPIVACAINE 5MG/ML 20ML VIAL ONE (11:59)
[2024-07-24] MEDS ORDERED: methylPREDNISolone ACETATE 40 MG/ML 1 ML VIAL ONE (11:59)
[2024-07-24] MEDS ORDERED: fentaNYL (PF) 50 MCG/ML 2 ML AMP ONE (11:59)
[2024-07-24] MEDS ORDERED: MIDAZOLAM 2 MG/2 ML VIAL ONE (11:59)
[2024-07-24 12:37] VITALS: RESP 16
[2024-07-24 12:48] VITALS: BP 111/76; PULSE 83
--- NOTE | 2024-07-24 12:50 | FL ---
EXAMINATION TYPE: FL guided pain mgmt statistic DATE OF EXAM: 07/24/2024 12:25 PM COMPARISON: Pre Operative Images if available both CT/MRI or plain film CLINICAL INDICATION: Female, 44 years old with history of RF LUM JOANN; TECHNIQUE: FL guided pain mgmt statistic, multiple fluoroscopic images provided for procedure. DAP: 0.34347 mGym2 Gycm2 uGym2 cGycm2 or equivalent. FINDINGS: Fluoroscopic images during injection for pain management demonstrate multilevel degeneration changes throughout the spine. No evidence for fracture. No acute process identified. IMPRESSION: 1. No evidence for intraoperative complication. 2. Please see the operative/procedural note for further details. [facility], , 07/24/2024 12:48 PM
--- NOTE | 2024-07-24 12:55 | P.PCN ---
Date of Procedure: 07/24/24 Procedure(s) Performed: PREOPERATIVE DIAGNOSIS: 1-Lumbar Spondylosis with Facet Arthropathy without myelopathy. 2- Lumber degenerative disc disease. POSTOPERATIVE DIAGNOSIS: 1- Lumbar Spondylosis with Facet Arthropathy without myelopathy. 2- Lumber degenerative disc disease. PROCEDURES : Bilateral Radiofrequency thermocoagulation, L3 , L4 , L5 medial branch, with fluoroscopic guidance (fluoro images in the radiology department) ( to denervate the facet joint at bilateral L4-5 ,and L5-S1 levels ). ANESTHESIA: Moderate sedation with intravenous versed 2 mg and [id number] mcg, and local infiltration with Ropivacaine 0.5 % . Sedations start time 11:59 , end time 12:22 EBL: Minimal PROCEDURE INDICATION: The patient with low back pain secondary to lumbar facet arthropathy who had more than 50% relief of her pain with previous diagnostic lumbar medial branch block with bupivacaine. PROCEDURE DESCRIPTION / TECHNIQUE: The patient was seen and identified in the preoperative area. Risks, benefits, complications, including but not limited to risk of infection ,bleeding , allergic reactions to the medications and no complete pain releife , and alternatives were discussed with the patient, the patient agreed to proceed with the procedure and signed the consent. IV was started. Vital signs remained stable throughout the procedure. Patient was taken to the OR and time out was completed. The patient was placed in the prone position on the procedure table. The lumber area was prepped and draped in the usual sterile fashion. . Vital signs were closely monitored during the procedure .IV sedation was used during the procedure to decrease patients anxiety. Using AP and then oblique fluoroscopy, the ``eye of the Álvaro dog corresponding to the connection between the superior and transverse articular processes of right L3, L4, and L5 were identified, marked, and localized with 1% lidocaine. Subsequently, a 18 -vc ( Venom ) radiofrequency cannula with a 10-mm active tip was advanced guided by fluoroscopy to each of the``eyes of the Álvaro dog at right L3, L4, and L5. Each site then underwent sensory testing at 50 Hz and 0 to 1 volt and motor testing at 2.5 Hz and 0 to 3 volt with local stimulation, but no radicular symptoms down the legs. Thereafter each sites underwent radiofrequency thermocoagulation at 80 degrees celsius for 90 seconds after injecting 0.5 ml of PF Ropivacaine 1ml, then after the ther mocoagulation done , 1 ml of the block solution containing Depo-Medrol 20 mg and 3 ml of Ropivacaine 0.5% was injected at the right L3 , L4 , and L5 , levels after negative aspiration of CSF and blood and with no paresthesias. Cannulas were retracted while injecting lidocaine 1% until the needle is out. The same procedure was repeated at the level of Left L3, L4, and L5 levels. At the end of the procedure, the skin was cleansed and bandages were applied. COMPLICATIONS: No acute complications. DISPOSITION / PLANS: The patient was placed in a supine position and transferred to the recovery area in a stable condition for observation and was discharged from the recovery room after meeting discharge criteria. Home discharge instructions given to the patient by the staff. The patient was reexamined prior to discharge. The patient will schedule a follow up in the clinic in 2-4 weeks.
== END 2024-07-24 13:11 | disposition home or self-care (01) ==
LOC: ORPAIN 11:09
PROVIDERS: ATTEND Specialist
DX: M47.816 Spondylosis without myelopathy or radiculopathy, lumbar region (principal); M51.369 Other intervertebral disc degeneration, lumbar region without mention of lumbar back pain or lower extremity pain; Z91.040 Latex allergy status; Z91.030 Bee allergy status; Z88.5 Allergy status to narcotic agent; Z79.899 Other long term (current) drug therapy
CPT/HCPCS: 81025; 64635; 64636; J2250; J3010; J2795; J1010; 99152

== ENCOUNTER → 2024-08-09 | Outpatient (CLI) | payer OTHER ==
[2024-08-09 11:51] VITALS: BP 135/89; PULSE 85; RESP 16
--- NOTE | 2024-08-09 15:23 | P.PAINPG ---
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 Pt states she experienced 50-60 % pain relief s/p procedure. Pain level is provoked at 7 /10 in intensity, intermittent, predominantly axial, localized in the lumbar spine, sharp in character w occasional shooting towards the back of the LEs. Pain is provoked by lifting. Pain is alleviated with use of a wheelchair for ambulatory assistance, PT x 6 wks (lumbar) which ended in late Jun 2024, OT in 2021, physician guided h ome exercises (lumbar, BL knees) 5 days weekly since 2021, heat, heating pad use, medications, topicals, repositioning, use of orthopedic bed, laying supine and rest. Interventional pain procedures completed include BL RFA L3-L5 (07/15, 02/14, 11/15, 07/24/24), BL SI injection, R intra articular injection x1, BL iliolumbar x1 (Nov 2023) Patient is currently on Tyl, Ibu, Arnica Gel Patient denies any side effects of the medication(s), denies excessive drowsiness or sleepiness, denies suicidal ideation and reports that the current pain medication is helping to control the pain and improve activities of daily living. Patient denies any motor or sensory deficits. Patient denies any fever or night sweats, denies any change in the bowel movements or urination. Physical Examination: -Constitutional: Cooperative. Not in acute distress . - Neurologic: Cranial nerve II to XII intact. No focal neurological deficits. - Psychatric: Alert & oriented x 3. Matching mood & appropriate affect. Judgment and insight intact. - Musculoskeletal: Cervical spine: Muscle bulk/ tone/ strength in the bilateral upper extremities normal Vertebral body tenderness to palpation over Spurling test positive Distraction test positive Facet loading test positive Thoracic spine Muscle bulk / tone/ strength in the bilateral paraspinal muscles normal Vertebral body tender to palpation over Facet loading test positive Lumbar spine: R> L Knee diffuse TTP, edema Motor bulk/ tone/ strength lower extremities , thigh and legs : 5/5 Deep tendon reflexes : Normal Knee Jerk. Normal Ankle Jerk . Vertebral body tenderness to palpation over L4 Lumbar Facet Loading Test BL L4-L5, L5-S1 Straight Leg Raise: positive at 30 degrees right side/ left side Gaenslen's Test positive Sacral spine : Severe tenderness over the Sacroiliac joint: right side / left side Range of motion: Flexion of the lumbar spine <60 degrees Range of motion: Extension of the lumbar spine <20 degrees Gaenslen's Test positive BL Hernandez test: positive right side / left side Thigh Thrust Test Sacral Thrust Test BL positive Imaging: MRI non contrast brain from 05/02/24 reviewed MRI of R knee from 03/08/23 reviewed MRI non contrast of the lumbar spine from 01/31/23 reviewed MRI non contrast of the cervical spine from 07/11/23 reviewed MRI with/ without contrast of the brain from 05/09/23 reviewed Assessment and plan: Chronic R knee pain, LBP secondary to radiculopathy, spondylosis with facet arthropathy without myelopathy, R Chondromalacia, BL Sacroiliitis Recommendation of BL knee x rays M17.9. All patient questions answered I have spent less than 30 minutes on patient care today. Dr Zurita was available by phone for the evaluation of this patient. The time was used to review the medical records including relevant urine studies and Prescription his tory (MAPs), review of the available imaging, evaluation and examination of the patient, coordination of care with the medical staff and if applicable referring physicians, as well as creation of the medical record - Pain Location Bilateral Lower Back Non-Pharmacological Interventions: Chiropractic Treatment, Heat, Ice, Inactivity, Massage, Physical Therapy, Position/Reposition Pharmacological Interventions: Block, Epidural, PRN Medication, Scheduled Medication, Topical Medication PQRS Narrative: Smoking Status Never smoker Hx Alcohol Use (MH) No Home Medications: Ambulatory Orders Pregabalin [Lyrica] 200 mg PO BID 11/09/21 Lidocaine 5% Patch [Lidoderm] 1 each TRANSDERM QAM PRN 01/07/22 DULoxetine HCL [Cymbalta] 60 mg PO BID 02/08/23 Baclofen 10 mg PO BID 04/14/23 Levothyroxine Sodium 25 mcg PO QAM 04/14/23 Semaglutide [Ozempic] 2 mg SQ GRANT 11/16/23 tiZANidine [Zanaflex] 2 mg PO DAILY 11/16/23 Controlled Substance Measures - Controlled Substance Measures Is patient prescribed a controlled substance at discharge?: No
--- NOTE | 2024-08-09 16:09 | XR ---
EXAMINATION TYPE: XR knee 2 views RT DATE OF EXAM: 08/09/2024 11:47 AM COMPARISON: 05/10/2018 CLINICAL INDICATION: Female, 44 years old with history of M17.9 knee pain; PHH, pain FINDINGS: Minimal degenerative spurring medial and patellofemoral compartments. Joint space remains preserved. No joint effusion. Extensor mechanism appears intact. No acute fracture, subluxation, or dislocation. IMPRESSION: Minimal early degenerative spurring has developed in the medial and patellofemoral compartments. No a cute osseous abnormality seen. [facility], Workstation: [facility], 08/09/2024 4:06 PM
== END ==
LOC: PNWHC3 10:01
PROVIDERS: ATTEND Anesthesiology
DX: M47.26 Other spondylosis with radiculopathy, lumbar region (principal); M25.561 Pain in right knee; G89.29 Other chronic pain; M46.1 Sacroiliitis, not elsewhere classified; Z88.6 Allergy status to analgesic agent; Z91.030 Bee allergy status; Z91.040 Latex allergy status
CPT/HCPCS: 99211

== ENCOUNTER 2024-08-23 08:40 | Day surgery (SDC) | payer OTHER ==
[2024-08-21 12:28] VITALS: BMI 38.0
[~2024-08-23 08:40] MED LIST changes: -LIDOCAINE 1% (10MG/ML) FOR IV START INTRADERMA PRN
[2024-08-23 09:14] VITALS: RESP 16; TEMP 97.7
[2024-08-23 09:17] LABS: Glucose,Whole Blood 91 mg/dL (70-110)
[2024-08-23] MEDS ORDERED: ROPIVACAINE 5 MG/ML 30 ML VIAL ONE (09:30)
[2024-08-23] MEDS ORDERED: methylPREDNISolone ACETATE 80 MG/ML 1 ML VIAL ONE (09:30)
--- NOTE | 2024-08-23 09:45 | P.PCN ---
Description of Procedure: Preprocedure diagnosis. Myofascial pain. Myofascial trigger point. Postprocedure diagnosis. As above. Procedure done. Myofascial trigger point injection with local anesthetics and steroid at 6 points. Anesthesia. Ethyl chloride spray. Local anesthetic infiltration. In the OR continuous pulse ox, EKG, blood pressure, and verbal communication was maintained with the patient. Blood loss. None. Indication. Discussed with the patient procedure, alternatives and possible complications which may include infection, bleeding, nerve damage, aggravation of pain. Patient understands and all questions were answered. Procedure note. After getting consent patient in the procedure area. Most tender points in the lumbar paraspinal muscles 3 on each side total 6 were identified and marked. A 25-gauge needle attached to syringe was introduced at the trigger points and after negative aspiration 5 mL solution are injected at each trigger point. I injected 3 trigger points in right lumber paraspinal muscles on each side, total 6. Total solution consists of 30 ml 0.5%Ropivacaine mixed with 80 mg Depomedrol. Disposition. Patient tolerated the procedure well. No complication. Discharged home in stable condition.
[2024-08-23 10:03] VITALS: BP 123/80; PULSE 80
== END 2024-08-23 10:05 | disposition home or self-care (01) ==
LOC: ORPAIN 08:40
PROVIDERS: ATTEND Pain Medicine Interventional Pain Medicine
DX: M79.18 Myalgia, other site (principal)
CPT/HCPCS: 20553; 81025; J2795; J1010

== ENCOUNTER 2024-10-11 09:31 | Day surgery (SDC) | payer OTHER ==
[2024-10-09 16:14] VITALS: BMI 37.0
[2024-10-11] MEDS ORDERED: LACTATED RINGERS 1,000 ML IV SCH (10:00)
[2024-10-11 10:14] VITALS: TEMP 97.8
[2024-10-11 10:32] LABS: Glucose,Whole Blood 96 mg/dL (70-110)
[2024-10-11] MEDS ORDERED: IOPAMIDOL M300 15ML VIAL ONE (11:16)
[2024-10-11] MEDS ORDERED: methylPREDNISolone ACETATE 80 MG/ML 1 ML VIAL ONE (11:16)
[2024-10-11] MEDS: IV FLUID CONTINUATION 1,000 ML IV ONE (11:29)
--- NOTE | 2024-10-11 11:32 | P.PCN ---
Description of Procedure: PREOPERATIVE DIAGNOSIS: 1- Lumbar Degenerative Disc Diseases 2-Lumbar spondylosis with Facet arthropathy without myelopathy. 3-lumbar spinal stenosis 4-Lumber radiculopathy POSTOPERATIVE DIAGNOSIS: 1-lumbar degenerative disc disease. 2-lumbar spondylosis with facet arthropathy without myelopathy. 3-lumbar spinal stenosis. 4-Lumber radiculopathy PROCEDURE Injection of radio contrast material into L5-S1 interspace, interpretation of epidurogram, injection of steroid at L5-S1 epidural space under fluoroscopic guidance. ANESTHESIA: Lidocaine 1% subcutaneously. In OR continuous pulse ox, EKG, blood pressure and verbal communication was maintained with the patient. EBL: Minimal PROCEDURE INDICATION: Before the procedure were discussed with the patient detailed procedure, alternatives, complications including infection, bleeding, nerve damage, paralysis all of which could be permanent. Patient understands and all questions were answered. PROCEDURE DESCRIPTION : After getting consent, patient in OR in prone position. Back was prepped with chlorhexidine and draped in sterile fashion. After injecting 10 mL of 1% lidocaine subcutaneously, a 20-gauge Tuohy needle was introduced at L5-S1 interspace with loss of resistance technique using a syringe filled with air. Negative CSF, negative blood, negative paresthesia. Needle position was confirmed with AP and lateral view of the fluoroscope. After repeat negative aspiration 2 mL of Omnipaque 200 water soluble contrast was injected. Contrast was noted in the epidural space. No contrast was noted into intrathecal or intravascular space. After repeat negative aspiration 6 mL solution was injected intermittently which consists of 5 mL of preservative-free normal saline mixed with 1 mL of 80 mg Depo-Medrol. Needle was withdrawn intact. Skin was cleansed and Band-Aids was applied. DISPOSITION / PLANS: The patient tolerated the procedure well. No complication. The patient was placed in a supine position and transferred to the recovery area in a stable condition for observation. There was no evidence of lower extremity motor or sensory deficit after the procedure. Patient was discharged from the recovery room after meeting discharge criteria. Home discharge instructions were given to the patient by the staff. The patient was reexamined prior to discharge. The patient will schedule a follow up in the clinic in 2-4 weeks.
[2024-10-11 11:48] VITALS: BP 117/68; PULSE 79; RESP 17
--- NOTE | 2024-10-11 13:20 | FL ---
Fluoroscopy INDICATION: Pain FINDINGS: Fluoroscopy time: 14.5 seconds. Total dose area product (DAP) in uGy*m?, mGy*cm? (or similar): 0.82270 Images obtained: 3. Images document [place] directed towards the lumbar spine IMPRESSION: 1. Documentation of fluoroscopy. [facility], , 10/11/2024 1:17 PM
== END 2024-10-11 11:57 | disposition home or self-care (01) ==
LOC: ORPAIN 09:31
PROVIDERS: ATTEND Pain Medicine Interventional Pain Medicine
DX: M48.061 Spinal stenosis, lumbar region without neurogenic claudication (principal); M51.369 Other intervertebral disc degeneration, lumbar region without mention of lumbar back pain or lower extremity pain; M47.26 Other spondylosis with radiculopathy, lumbar region
CPT/HCPCS: 81025; 62323; Q9967; J1010

== ENCOUNTER → 2024-10-22 | Outpatient (CLI) | payer OTHER ==
[2024-10-22 14:33] VITALS: BP 133/82; PULSE 94; RESP 21
--- NOTE | 2024-10-22 16:01 | P.PAINPG ---
Objective - Vital Signs Vital signs: Intake & Output 10/21/24 10/22/24 10/22/24 18:59 06:59 18:59 Weight 95.254 kg PQRS Measure Charge Sheet Comment: A 44 yr old wheelchair bound female w male respooler at side with a history of severe and chronic R knee pain x 1 yr, LBP > 3 yrs secondary to radiculopathy, spondylosis with facet arthropathy without myelopathy, R chondromalacia presents today for evaluation s/p BALDEMAR L5-S1 #1. Pt states she experienced 0% pain relief s/p procedure. Pain level is provoked at 7 /10 in intensity, intermittent, predominantly axial, localized in the lumbar spine, sharp in character w occasional shooting towards the back of the RLE. Pain is provoked by lifting. Pain is alleviated with use of a wheelchair for ambulatory assistance, PT x 6 wks (lumbar) which ended in late Jun 2024, OT in 2021, physician guided home exercises (lumbar, BL knees) 5 days weekly since 2021, heat, heating pad use, medications, topicals, repositioning, use of orthopedic bed, laying supine and rest. Interventional pain procedures completed include BL RFA L3-L5 (07/15, 02/14, 11/15, 07/24/24), BL SI injection, R intra articular injection x1, BL iliolumbar x1 (Nov 2023), BALDEMAR L5-S1 x1 (10/17) Patient is currently on Tyl, Ibu, Arnica Gel Patient denies any side effects of the medication(s), denies excessive drowsiness or sleepiness, denies suicidal ideation and reports that the current pain medication is helping to control the pain and improve activities of daily living. Patient denies any motor or sensory deficits. Patient denies any fever or night sweats, denies any change in the bowel movements or urination. Physical Examination: -Constitutional: Cooperative. Not in acute distress . - Neurologic: Cranial nerve II to XII intact. No focal neurological deficits. - Psychatric: Alert & oriented x 3. Matching mood & appropriate affect. Judgm ent and insight intact. - Musculoskeletal: Cervical spine: Muscle bulk/ tone/ strength in the bilateral upper extremities normal Vertebral body tenderness to palpation over Spurling test positive Distraction test positive Facet loading test positive Thoracic spine Muscle bulk / tone/ strength in the bilateral paraspinal muscles normal Vertebral body tender to palpation over Facet loading test positive Lumbar spine: R> L Knee diffuse TTP, edema Motor bulk/ tone/ strength lower extremities , thigh and legs : 5/5 Deep tendon reflexes : Normal Knee Jerk. Normal Ankle Jerk . Vertebral body tenderness to palpation over L5 Lumbar Facet Loading Test BL L4-L5, L5-S1 Straight Leg Raise: positive at 30 degrees right side> left side Gaenslen's Test positive Sacral spine : Severe tenderness over the Sacroiliac joint: right side / left side Range of motion: Flexion of the lumbar spine <60 degrees Range of motion: Extension of the lumbar spine <20 degrees Gaenslen's Test positive BL Hernandez test: positive right side / left side Thigh Thrust Test Sacral Thrust Test BL positive Imaging: MRI non contrast brain from 05/02/24 reviewed MRI of R knee from 03/08/23 reviewed MRI non contrast of the lumbar spine from 01/31/23 reviewed MRI non contrast of the cervical spine from 07/11/23 reviewed MRI with/ without contrast of the brain from 05/09/23 reviewed Assessment and plan: Chronic R knee pain, LBP secondary to radiculopathy, spondylosis with facet arthropathy without myelopathy, R Chondromalacia, BL Sacroiliitis Recommendation of medication management. Suboxone not covered by her insurance. Fentanyl 25 mcg/hr #15 w RF. Opiate/ narcotic agreement signed 10/22/24. Use, side effects, adverse reactions, safe storage discussed. Apart from surgery, pt should have a consultation as she can benefit from implant of pain pump within the intrathecal sac or SCS (spinal cord stimulator). These procedures & devices are now implanted by Dr Brown in [facility]. All patient questions answered I have spent less than 30 minutes on patient care today. Dr Zurita was available by phone for the evaluation of this patient. The time was used to review the medical records including relevant urine studies and Prescription history (MAPs), review of the available imaging, evaluation and examination of the patient, coordination of care with the medical staff and if applicable referring physicians, as well as creation of the medical record PQRS Narrative: Smoking Status Never smoker Hx Alcohol Use (MH) No Home Medications: Ambulatory Orders Pregabalin [Lyrica] 200 mg PO BID 11/09/21 Lidocaine 5% Patch [Lidoderm] 1 each TRANSDERM QAM PRN 01/07/22 DULoxetine HCL [Cymbalta] 60 mg PO BID 02/08/23 Baclofen 10 mg PO BID 04/14/23 Levothyroxine Sodium 25 mcg PO QAM 04/14/23 Semaglutide [Ozempic] 2 mg SQ GRANT 11/16/23 tiZANidine [Zanaflex] 2 mg PO HS 11/16/23 Meclizine [Antivert] 25 mg PO DAILY 08/23/24 Buprenorphine HCl/Naloxone HCl [Suboxone 8 mg-2 mg Sl Film] 1 film SL DAILY PRN 10/09/24 diazePAM [Valium] 10 mg PO DAILY 1 Days #1 tab 10/10/24 Controlled Substance Measures - Controlled Substance Measures Is patient prescribed a controlled substance at discharge?: Yes When asked, does pt state using other controlled substances?: Yes If prescribed controlled substance>3 days was MAPS reviewed?: Yes If Rx opioid, was Start Talking consent form obtained?: Yes Was information provided regarding opioid addiction?: Yes
== END ==
LOC: PNWHC3 14:20
PROVIDERS: ATTEND Specialist
DX: M47.26 Other spondylosis with radiculopathy, lumbar region (principal); M25.561 Pain in right knee; G89.29 Other chronic pain; M94.261 Chondromalacia, right knee; M46.1 Sacroiliitis, not elsewhere classified; Z91.030 Bee allergy status; Z91.040 Latex allergy status; Z88.5 Allergy status to narcotic agent
CPT/HCPCS: 99212

== ENCOUNTER → 2024-10-31 | Outpatient (CLI) | payer OTHER ==
--- NOTE | 2024-10-31 11:23 | MM ---
Reason for Exam: Screening (asymptomatic). Last mammogram was performed 3 year(s) and 8 month(s) ago. Patient History: Menarche at age 13. First Full-Term at age 31. Late child-bearing (after 30). Hormonal Contraceptives for 11 years from age 18 until age 29. Paternal grandmother had breast cancer. Risk Values: Vianey 5 year model risk: 1.0%. NCI Lifetime model risk: 13.2%. Prior Study Comparison: 02/26/2021 Bilateral Screening Mammogram, [facility]. Tissue Density: The breasts are heterogeneously dense, which may obscure small masses. Findings: Analyzed By CAD. There is a new 9 mm circumscribed round mass approximately 4 cm distance from nipple slight medial and inferior aspect right breast. Overall Assessment: Incomplete: need additional imaging evaluation, BI-RAD 0 Management: Diagnostic Breast Ultrasound of the right breast. . Patient should continue monthly self-breast exams. A clinical breast exam by your physician is recommended on an annual basis. This exam should not preclude additional follow-up of suspicious palpable abnormalities. Note on Vianey scores and lifetime risk: 1. A Vianey score greater than 3% is considered moderate risk. If this is the case, consider specialist referral to assess eligibility for a risk reducing agent. 2. If overall lifetime risk for the development of breast cancer is 20% or higher, the patient may qualify for future screening with alternating mammogram and breast MRI. [facility], , 10/31/2024 11:20 AM. Electronically signed and approved by: Albert Banks M.D.
== END | disposition home or self-care (01) ==
LOC: RADMAMWWP 09:48
DX: Z12.31 Encounter for screening mammogram for malignant neoplasm of breast (principal); R92.333 Mammographic heterogeneous density, bilateral breasts; Z80.3 Family history of malignant neoplasm of breast; Z92.0 Personal history of contraception
CPT/HCPCS: 77063; 77067

== ENCOUNTER → 2024-11-06 | Outpatient (CLI) | payer OTHER ==
--- NOTE | 2024-11-06 11:21 | MM ---
Reason for Exam: Additional evaluation requested from abnormal screening. Last screening mammogram was performed less than 1 month ago. Patient History: Menarche at age 13. First Full-Term at age 31. Late child-bearing (after 30). Patient has history of breast feeding. Hormonal Contraceptives for 11 years from age 18 until age 29. Paternal grandmother had breast cancer. Risk Values: Vianey 5 year model risk: 1.0%. NCI Lifetime model risk: 13.2%. Prior Study Comparison: 02/26/2021 Bilateral Screening Mammogram, [facility]. 10/31/2024 Bilateral MG 3D screening mammo w/cad, [facility]. Tissue Density: Right: There are scattered areas of fibroglandular density. Findings: Analyzed By CAD. 9 mm nodular density inner lower right breast 4.6 cm from the nipple. Ultrasound recommended. Overall Assessment: Incomplete: need additional imaging evaluation, BI-RAD 0 Management: Diagnostic Breast Ultrasound of the right breast. . Results were given to the patient verbally at the time of exam. Patient should continue monthly self-breast exams. A clinical breast exam by your physician is recommended on an annual basis. This exam should not preclude additional follow-up of suspicious palpable abnormalities. Note on Vianey scores and lifetime risk: 1. A Vianey score greater than 3% is considered moderate risk. If this is the case, consider specialist referral to assess eligibility for a risk reducing agent. 2. If overall lifetime risk for the development of breast cancer is 20% or higher, the patient may qualify for future screening with alternating mammogram and breast MRI. [facility], , 11/06/2024 11:16 AM. Electronically signed and approved by: Brian Mcadams M.D. Radiologis
--- NOTE | 2024-11-06 11:59 | USB ---
Reason for Exam: Additional evaluation requested from abnormal screening. Patient History: Menarche at age 13. First Full-Term at age 31. Late child-bearing (after 30). Patient has history of breast feeding. Hormonal Contraceptives for 11 years from age 18 until age 29. Paternal grandmother had breast cancer. Risk Values: Vianey 5 year model risk: 1.0%. NCI Lifetime model risk: 13.2%. Technique: Method: Targeted. Prior Study Comparison: 02/26/2021 Bilateral Screening Mammogram, [facility]. 10/31/2024 Bilateral MG 3D screening mammo w/cad, [facility]. Findings: The medial section of the breast of the right breast, the axilla of the right breast and the retroareolar of the right breast were scanned. Hypoechoic lesion with smooth margins measuring 8 x 5 mm right breast 3:00 position 4 cm from the nipple likely reflects a complex cyst and I do recommend aspiration. Overall Assessment: Suspicious, BI-RAD 4 Management: Aspiration of the right breast. A clinical breast exam by your physician is recommended on an annual basis and results should be correlated with mammographic findings. This exam should not preclude additional follow-up of suspicious palpable abnormalities. Results were given to the patient verbally at the time of exam. [facility], , 11/06/2024 11:29 AM. Electronically signed and approved by: Brian Mcadams M.D. Radiologis
== END | disposition home or self-care (01) ==
LOC: RADUSWWP 10:43
DX: R92.8 Other abnormal and inconclusive findings on diagnostic imaging of breast (principal); R92.321 Mammographic fibroglandular density, right breast; Z80.3 Family history of malignant neoplasm of breast
CPT/HCPCS: 77061; 77065

== ENCOUNTER → 2024-11-16 | Day surgery (SDC) | payer OTHER ==
--- NOTE | 2024-11-26 14:18 | MM ---
Reason for Exam: Post Procedure Mammogram. Last screening mammogram was performed less than 1 month ago. Patient History: Menarche at age 13. First Full-Term at age 31. Late child-bearing (after 30). Patient has history of breast feeding. Hormonal Contraceptives for 11 years from age 18 until age 29. Paternal grandmother had breast cancer. Risk Values: Vianey 5 year model risk: 1.0%. NCI Lifetime model risk: 13.2%. Prior Study Comparison: 02/26/2021 Bilateral Screening Mammogram, [facility]. 10/31/2024 Bilateral MG 3D screening mammo w/cad, [facility]. 11/06/2024 Right MG 3D work up w/cad RT, [facility]. 11/06/2024 Right US breast workup limited RT, [facility]. Tissue Density: Right: The breasts are heterogeneously dense, which may obscure small masses. Pathology Description: Location: 3 o'clock. Marker Left Behind. Needle Type: Mammotome Cores: 8 Skin Nicks: 1 Gauge: 13 The procedure of ultrasound guided core biopsy was explained to the patient. Benefits, alternatives, and risks were discussed. An informed consent was then obtained. The patient was placed in supine positioning for imaging and for the procedure. The overlying skin was prepped and draped in usual sterile fashion. Lidocaine buffered with bicarbonate was used as anesthetic into the skin and subcutaneous tissue up to area of concern in the right breast. A isabella was made with surgical scalpel. Under ultrasound guidance, a 12-gauge vacuum assisted biopsy gun device was used to obtain 8 core samples. Following this, a biopsy clip was left in lesion. The patient tolerated the procedure well without any immediate complication. The patient was kept in the radiology department for short stay after the procedure and then discharged home in stable condition. Postprocedure mammogram: The patient was transferred to mammography for physician ordered post procedure mammogram for clip placement verification. Post procedure mammogram demonstrates appropriate placement of clip. Impression: Successful, uncomplicated ultrasound guided core biopsy of area of concern in the right breast, full pathology results to follow. [facility], , 11/16/2024 1:19 PM. Pathology Results: Result: Benign, Fibroadenoma. Pathology and radiology were reviewed. Findings are concordant. RIGHT BREAST, 3:00 POSITION, 4 CM FROM NIPPLE, ULTRASOUND GUIDED CORE BIOPSY: Benign fibroadenoma. Overall Assessment: Benign Assessment: MG diagnostic mammo RT wo CAD - Right: Benign, BI-RAD 2. Management: Diagnostic Mammogram of the right breast in 6 months. Electronically signed and approved by: Neal Gross DO
== END ==
LOC: RADUSWWP 10:01
PROVIDERS: ATTEND Internal Medicine
DX: D24.1 Benign neoplasm of right breast (principal); Z80.3 Family history of malignant neoplasm of breast
CPT/HCPCS: 77065; 88305